=== PATIENT | male | born 1950 | race Caucasian/White ===

== ENCOUNTER → 2018-07-12 11:27 | Outpatient (CLI) | payer OTHER, SELFPAY | PROVIDERS: PCP Internal Medicine; Visit Provider Urology | DX: N40.1 Benign prostatic hyperplasia with lower urinary tract symptoms (principal) | CPT/HCPCS: 36415; 84153 ==

== ENCOUNTER → 2018-08-09 12:08 | Outpatient (CLI) | payer OTHER, SELFPAY | PROVIDERS: Family Provider Orthopaedic Surgery; PCP Internal Medicine | DX: Z23 Encounter for immunization (principal) | CPT/HCPCS: 90471; 90662 ==

== ENCOUNTER 2019-07-29 10:00 | Outpatient (RCR) | payer OTHER, SELFPAY ==
--- NOTE | 2019-05-28 17:35 | PT.OPPOC ---
Current Diagnoses Pain in right knee (05/28/19) Provider Visit Care Team Role Provider Type Edgar Arambula MD Primary Care Provider Physician Specialty: Internal Medicine Address: [address] [place] [address], [id number] Email: Pacheco Montano MD Family Provider Physician Specialty: Orthopedic Surgery Address: [address] [place] [address], [id number] Email: [email or web address] Attending Provider Physician Specialty: Internal Medicine Address: [address] [place] [address], [id number] Email: Plan Of Care PT-OP-T Assessment and Plan Start: 05/28/19 15:59 Freq: Status: Active Protocol: Document 05/28/19 17:31 EA (Rec: 05/28/19 17:33 EA [id number]) Physical Therapy Assessment Rehab Potential Rehabilitation Potential Good Evaluation Complexity Number of Personal Factors/Comorbidities 0 Number of Body Systems Impaired 1-2 Clinical Presentation at Evaluation Stable Impairments Impairments Activity Tolerance Pain ROM Soft Tissue Mobility Strength Goals Four Impairment Impaired hip, knee ankle muscular excursion Snf Goal (LTG) Patient will exhibit functional muscular excursion both hip flexors, hamstrings, calves, ITB to prevent muscular imbalance. LTG Duration 5 wks Three Impairment LEFS score of 55/80 Industrial Workers Goal (LTG) LEFS score of > 65/80 to reach highest functional level LTG Duration 5 wks Two Impairment Impaired distance running Snf Goal (LTG) Patient will run more than 2 miles three time a week with no increase of pain LTG Duration 4 wks One Impairment No HEP in place Industrial Workers Goal (LTG) Patient will exhibit independent HEP LTG Duration 3 wks Assessment Summary Assessment Pleasant 68 y/o M patient with a referring diagnosis of right knee pain. Today patient exhibited of right single leg squat difficulty, left single leg heel raises difficulty with pain. Tests and assessment reveals right knee PF joint dysfunction, left soleus muscular strain. Patient also exhibited tightness to both hip flexors (+ seven test), Hamstrings tightness (90-90 tests), ITB tightness (Linda's test+), and quads tightness. In my opinion , patient is possibly suffering from PF joint dysfunction, calf strain secondary to muscular length imbalances and poor conditioning in regards to high impact activities. Patient would benefit with skilled PT to educate about proper conditioning, strengthen quads, and flexibility. Patient shows good potential for recovery. Physical Therapy Plan Frequency and Duration Frequency of Treatment 2x/Week Duration of Treatment 8 wks Plan of Care Start Date 05/28/19 Plan of Care End Date 07/23/19 Therapeutic Interventions Therapeutic Interventions Home Exercise Program Joint Mobilizations Patient/Caregiver Education Self-Care/Home Management Soft Tissue Mobilization Taping Therapeutic Exercises Modalities Ultrasound Next Visit Focus/Plan Next Note Type Treatment Note Next Visit Plan HEP with images. quads strengthening, LE stretching, soleus stretching. Plan of Care Dates Plan of Care Start Date 05/28/19 Plan of Care End Date 07/23/19 Please Sign and Return: I have reviewed this Plan of Care and certify that the skilled therapy services above are required to meet the patient?s needs. Physician Signature Date Printed Name and Credentials Clinical Instructor Signature Printed Name and Credentials
--- NOTE | 2019-05-28 17:35 | PT.OIE ---
Current Diagnoses Pain in right knee (05/28/19) Provider Visit Care Team Role Provider Type Edgar Arambula MD Primary Care Provider Physician Specialty: Internal Medicine Address: [address] [place] [address], [id number] Email: Pacheco Montano MD Family Provider Physician Specialty: Orthopedic Surgery Address: [address] [place] [address], [phone] Email: [email or web address] MD Attending Provider Physician Specialty: Internal Medicine Address: [address] [place] [address], [phone] Email: Physical Therapy Initial Evaluation PT-OP-A Visit Information Start: 05/28/19 15:59 Freq: Status: Active Protocol: Document 05/28/19 17:35 EA (Rec: 05/29/19 08:12 EA [id number]) Out-Patient Physical Therapy Visit Information Visit Information Visit Type Initial Evaluation Visit Start Time 15:15 Visit Stop Time 16:00 Total Visit Minutes 40 Visit Number 1 Evaluation Information Evaluation Date 05/28/19 Precautions Precautions None identified PT-OP-B Current Condition Start: 05/28/19 15:59 Freq: Status: Active Protocol: Document 05/28/19 17:35 EA (Rec: 05/29/19 08:12 EA [id number]) Current Condition History of Current Condition Onset Date March Current Complaints R knee pain History of Current Condition Pt reports he used to run daily of 6-7 miles with no symptoms noted until last March of 2019. He states right knee cap pain gradually builds up and made his run decreased to < a 2 miles, in addition to right knees issue, his right hamstring and left mid calf tendon also bother him in the past 3 weeks but states much feeling better after using knee support and velcro to left calf. Patient denies any swelling or abnormality and also past injury that could relate to current problem. Pt denies any imaging performed in the past. Prior Treatments and Tests No imaging. No formal treatment. Future Testing and Treatments Planned None identified Treatment Goals Patient/Caregiver Goals 1. Patient would like to know home exercises he can do to prevent recurrence of pain to BLE. 2. He would like to eliminate pain to enable him to run > 2miles on regular basis. Prior Functional Status Baseline Function- ADL's Independent Baseline Function- Mobility Independent Baseline Function- Gait No limitation Baseline Function- Work/School Retired Baseline Function- Recreation/Hobbies Distance running ( > 5 miles / day) and cycling ( > 50miles x 3 /wk) Current Functional Impairments (Reported) Functional Limitations- ADL's Indep with no limitations Functional Limitations- Mobility/Gait Indep with no limitation except with High level running Functional Limitations- Work/School retired Functional Limitations- Recreation/ Unable to get back to > 2 Hobbies miles running daily PT-OP-C Subjective Start: 05/28/19 15:59 Freq: Status: Active Protocol: Document 05/28/19 17:35 EA (Rec: 05/29/19 08:12 EA [id number]) OP-PT Subjective Patient Comments Patient Comments Cycling did not bothered me ; running made me stop to eliminate pain Patient Reported Progress Improving Patient Questionnaires Lower Extremity Functional Scale LEFS Score 55 LEFS Impairment 20 to 39% Impaired (Score 48- 62) PT-OP-E Functional Tests Start: 05/28/19 15:59 Freq: Status: Active Protocol: Document 05/28/19 17:35 EA (Rec: 05/29/19 08:12 EA [id number]) Functional Tests Other 1 Name of Test Bent knee single leg heel raises Score Left 10 reps ; Right unable due to pain PT-OP-G Mobility & Gait Start: 05/28/19 15:59 Freq: Status: Active Protocol: Document 05/28/19 17:35 EA (Rec: 05/29/19 08:12 EA [id number]) OP Gait Assessment Gait Gait Assistance Required: Independent Distance (Feet) 300 Assistive Devices Assistive Device None Comments Gait Comments WFL PT-OP-J Posture/Palpation/Skin Start: 05/28/19 15:59 Freq: Status: Active Protocol: Document 05/28/19 17:35 EA (Rec: 05/29/19 08:12 EA [id number]) Posture Evaluation Comments Posture Comments No functional posture abnormality noted to both kness and ankle Palpation Assessment Location One Palpation Location quads, ITB band, Letf mid calf Palpation Findings Soft Tissue Tightness Tenderness PT-OP-K Range of Motion Start: 05/28/19 15:59 Freq: Status: Active Protocol: Document 05/28/19 17:35 EA (Rec: 05/29/19 08:12 EA [id number]) Hip Goniometric Range of Motion Hip ROM Limitations Hip ROM Limitations Soft Tissue Tightness Comments tight both hip flexors, hamstrings, ITB, quads but WFL joint ROM Ankle and Foot Goniometric Range of Motion Ankle and Foot ROM Limitations ROM Limitations Soft Tissue Tightness Comments Tight both calves but WFL joint ROM PT-OP-L Special Tests Start: 05/28/19 15:59 Freq: Status: Active Protocol: Document 05/28/19 17:35 EA (Rec: 05/29/19 08:12 EA [id number]) Special Tests Knee Special Tests Dustin's Sign Test Results Right positive Foot/Ankle Special Tests Fung Test Results - Other Special Tests Special Tests Soleus overpressure positive PT-OP-M Strength Start: 05/28/19 15:59 Freq: Status: Active Protocol: Document 05/28/19 17:35 EA (Rec: 05/29/19 08:12 EA [id number]) Hip Strength Hip Manual Muscle Testing Right Reason Not Measured WFL Left Reason Not Measured WFL Knee Strength Knee Manual Muscle Testing Right Reason Not Measured WFL Comments < 10 single leg squat with pain and instability to knee cap Left Flexion (S2) 5 Normal Extension (L3) 5 Normal Comments > 10 single leg squat Ankle/Foot Strength Ankle and Foot Manual Muscle Testing Right Reason Not Measured WFL Comments no limitation Left Reason Not Measured WFL Comments < difficult with bent knee heel raises to left PT-OP-Q Treatments Start: 05/28/19 15:59 Freq: Status: Active Protocol: Document 05/28/19 17:35 EA (Rec: 05/29/19 08:12 EA [id number]) Therapeutic Exercises Standing Exercises 3 Standing Exercise Name Heel raises Side bilateral Reps/Minutes x 12 reps 2 Standing Exercise Name Hamstrings, quads, hip flexors , calves, ITB Reps/Minutes x 30SH each Comments HEP 1 Standing Exercise Name Corrected squats Reps/Minutes x 12 reps x 2 Comments HEP Self-Care/Home Management Treatment Education Patient Education Home Exercise Program Joint Protection Pain Management PT-OP-T Assessment and Plan Start: 05/28/19 15:59 Freq: Status: Active Protocol: Document 05/28/19 17:31 EA (Rec: 05/28/19 17:33 EA [id number]) Physical Therapy Assessment Rehab Potential Rehabilitation Potential Good Evaluation Complexity Number of Personal Factors/Comorbidities 0 Number of Body Systems Impaired 1-2 Clinical Presentation at Evaluation Stable Impairments Impairments Activity Tolerance Pain ROM Soft Tissue Mobility Strength Goals Four Impairment Impaired hip, knee ankle muscular excursion Fdc Goal (LTG) Patient will exhibit functional muscular excursion both hip flexors, hamstrings, calves, ITB to prevent muscular imbalance. LTG Duration 5 wks Three Impairment LEFS score of 55/80 Onion [employer] Goal (LTG) LEFS score of > 65/80 to reach highest functional level LTG Duration 5 wks Two Impairment Impaired distance running Onion [employer] Goal (LTG) Patient will run more than 2 miles three time a week with no increase of pain LTG Duration 4 wks One Impairment No HEP in place Onion [employer] Goal (LTG) Patient will exhibit independent HEP LTG Duration 3 wks Assessment Summary Assessment Pleasant 68 y/o M patient with a referring diagnosis of right knee pain. Today patient exhibited of right single leg squat difficulty, left single leg heel raises difficulty with pain. Tests and assessment reveals right knee PF joint dysfunction, left soleus muscular strain. Patient also exhibited tightness to both hip flexors (+ seven test), Hamstrings tightness (90-90 tests), ITB tightness (Linda's test+), and quads tightness. In my opinion , patient is possibly suffering from PF joint dysfunction, calf strain secondary to muscular length imbalances and poor conditioning in regards to high impact activities. Patient would benefit with skilled PT to educate about proper conditioning, strengthen quads, and flexibility. Patient shows good potential for recovery. Physical Therapy Plan Frequency and Duration Frequency of Treatment 2x/Week Duration of Treatment 8 wks Plan of Care Start Date 05/28/19 Plan of Care End Date 07/23/19 Therapeutic Interventions Therapeutic Interventions Home Exercise Program Joint Mobilizations Patient/Caregiver Education Self-Care/Home Management Soft Tissue Mobilization Taping Therapeutic Exercises Modalities Ultrasound Next Visit Focus/Plan Next Note Type Treatment Note Next Visit Plan HEP with images. quads strengthening, LE stretching, soleus stretching.
--- NOTE | 2019-05-30 12:01 | PT.OTN ---
Current Diagnoses Pain in right knee (05/30/19) Physical Therapy Treatment Note PT-OP-A Visit Information Start: 05/28/19 15:59 Freq: Status: Active Protocol: Document 05/30/19 10:33 EA (Rec: 05/30/19 10:38 EA [id number]) Out-Patient Physical Therapy Visit Information Visit Information Visit Type Treatment Note Visit Start Time 09:45 Visit Stop Time 10:30 Total Visit Minutes 40 Visit Number 2 PT-OP-B Current Condition Start: 05/28/19 15:59 Freq: Status: Active Protocol: Document 05/28/19 17:35 EA (Rec: 05/29/19 08:12 EA [id number]) Current Condition History of Current Condition Onset Date March Current Complaints R knee pain History of Current Condition Pt reports he used to run daily of 6-7 miles with no symptoms noted until last March of 2019. He states right knee cap pain gradually builds up and made his run decreased to < a 2 miles, in addition to right knees issue, his right hamstring and left mid calf tendon also bother him in the past 3 weeks but states much feeling better after using knee support and velcro to left calf. Patient denies any swelling or abnormality and also past injury that could relate to current problem. Pt denies any imaging performed in the past. Prior Treatments and Tests No imaging. No formal treatment. Future Testing and Treatments Planned None identified Treatment Goals Patient/Caregiver Goals 1. Patient would like to know home exercises he can do to prevent recurrence of pain to BLE. 2. He would like to eliminate pain to enable him to run > 2miles on regular basis. Prior Functional Status Baseline Function- ADL's Independent Baseline Function- Mobility Independent Baseline Function- Gait No limitation Baseline Function- Work/School Retired Baseline Function- Recreation/Hobbies Distance running ( > 5 miles / day) and cycling ( > 50miles x 3 /wk) Current Functional Impairments (Reported) Functional Limitations- ADL's Indep with no limitations Functional Limitations- Mobility/Gait Indep with no limitation except with High level running Functional Limitations- Work/School retired Functional Limitations- Recreation/ Unable to get back to > 2 Hobbies miles running daily PT-OP-C Subjective Start: 05/28/19 15:59 Freq: Status: Active Protocol: Document 05/30/19 10:33 EA (Rec: 05/30/19 10:38 EA [id number]) OP-PT Subjective Patient Comments Patient Comments No new complaint; difficult to remember some of the HEP; states likes images PT-OP-E Functional Tests Start: 05/28/19 15:59 Freq: Status: Active Protocol: Document 05/28/19 17:35 EA (Rec: 05/29/19 08:12 EA [id number]) Functional Tests Other 1 Name of Test Bent knee single leg heel raises Score Left 10 reps ; Right unable due to pain PT-OP-G Mobility & Gait Start: 05/28/19 15:59 Freq: Status: Active Protocol: Document 05/28/19 17:35 EA (Rec: 05/29/19 08:12 EA [id number]) OP Gait Assessment Gait Gait Assistance Required: Independent Distance (Feet) 300 Assistive Devices Assistive Device None Comments Gait Comments WFL PT-OP-J Posture/Palpation/Skin Start: 05/28/19 15:59 Freq: Status: Active Protocol: Document 05/28/19 17:35 EA (Rec: 05/29/19 08:12 EA [id number]) Posture Evaluation Comments Posture Comments No functional posture abnormality noted to both kness and ankle Palpation Assessment Location One Palpation Location quads, ITB band, Letf mid calf Palpation Findings Soft Tissue Tightness Tenderness PT-OP-K Range of Motion Start: 05/28/19 15:59 Freq: Status: Active Protocol: Document 05/28/19 17:35 EA (Rec: 05/29/19 08:12 EA [id number]) Hip Goniometric Range of Motion Hip ROM Limitations Hip ROM Limitations Soft Tissue Tightness Comments tight both hip flexors, hamstrings, ITB, quads but WFL joint ROM Ankle and Foot Goniometric Range of Motion Ankle and Foot ROM Limitations ROM Limitations Soft Tissue Tightness Comments Tight both calves but WFL joint ROM PT-OP-L Special Tests Start: 05/28/19 15:59 Freq: Status: Active Protocol: Document 05/28/19 17:35 EA (Rec: 05/29/19 08:12 EA [id number]) Special Tests Knee Special Tests Dustin's Sign Test Results Right positive Foot/Ankle Special Tests Fung Test Results - Other Special Tests Special Tests Soleus overpressure positive PT-OP-M Strength Start: 05/28/19 15:59 Freq: Status: Active Protocol: Document 05/28/19 17:35 EA (Rec: 05/29/19 08:12 EA [id number]) Hip Strength Hip Manual Muscle Testing Right Reason Not Measured WFL Left Reason Not Measured WFL Knee Strength Knee Manual Muscle Testing Right Reason Not Measured WFL Comments < 10 single leg squat with pain and instability to knee cap Left Flexion (S2) 5 Normal Extension (L3) 5 Normal Comments > 10 single leg squat Ankle/Foot Strength Ankle and Foot Manual Muscle Testing Right Reason Not Measured WFL Comments no limitation Left Reason Not Measured WFL Comments < difficult with bent knee heel raises to left PT-OP-Q Treatments Start: 05/28/19 15:59 Freq: Status: Active Protocol: Document 05/30/19 10:33 EA (Rec: 05/30/19 10:38 EA [id number]) Cardio Equipment Treadmill Duration (Minutes) 7 Speed 3 Incline 5 Other pain icreased at left calf with speed > 4 Gym Equipment Shuttle Recovery Unilateral Squats Details 75# Shuttle Recovery Platform Stable Reps/Time x 15 reps x 2 Bilateral Squats Details 125lbs Shuttle Recovery Platform Stable Reps/Time x 15 reps x 2 Therapeutic Exercises Standing Exercises 5 Standing Exercise Name Half kneeling psoas and TFL stretch. 4 Standing Exercise Name Steady lunges Reps/Minutes x 8 reps each sides 3 Standing Exercise Name Heel raises Side bilateral Reps/Minutes x 12 reps 2 Standing Exercise Name Hamstrings, quads, hip flexors , calves, ITB Reps/Minutes x 30SH each Comments HEP 1 Standing Exercise Name Corrected squats Equipment Used 10# Reps/Minutes x 12 reps x 2 Comments HEP PT-OP-T Assessment and Plan Start: 05/28/19 15:59 Freq: Status: Active Protocol: Document 05/30/19 10:33 EA (Rec: 05/30/19 10:38 EA [id number]) Physical Therapy Assessment Assessment Summary Assessment Tolerated treatment well. Physical Therapy Plan Next Visit Focus/Plan Next Visit Plan Review HEP and cont. leg strengthening and flexibility.
--- NOTE | 2019-06-04 15:14 | PT.OTN ---
Current Diagnoses Pain in right knee (06/04/19) Physical Therapy Treatment Note PT-OP-A Visit Information Start: 05/28/19 15:59 Freq: Status: Active Protocol: Document 06/04/19 14:30 DCW (Rec: 06/04/19 15:14 DCW [id number]) Out-Patient Physical Therapy Visit Information Visit Information Visit Type Treatment Note Visit Start Time 14:30 Visit Stop Time 15:15 Total Visit Minutes 45 Visit Number 3 Evaluation Information Evaluation Date 05/28/19 PT-OP-B Current Condition Start: 05/28/19 15:59 Freq: Status: Active Protocol: Document 05/28/19 17:35 EA (Rec: 05/29/19 08:12 EA [id number]) Current Condition History of Current Condition Onset Date March Current Complaints R knee pain History of Current Condition Pt reports he used to run daily of 6-7 miles with no symptoms noted until last March of 2019. He states right knee cap pain gradually builds up and made his run decreased to < a 2 miles, in addition to right knees issue, his right hamstring and left mid calf tendon also bother him in the past 3 weeks but states much feeling better after using knee support and velcro to left calf. Patient denies any swelling or abnormality and also past injury that could relate to current problem. Pt denies any imaging performed in the past. Prior Treatments and Tests No imaging. No formal treatment. Future Testing and Treatments Planned None identified Treatment Goals Patient/Caregiver Goals 1. Patient would like to know home exercises he can do to prevent recurrence of pain to BLE. 2. He would like to eliminate pain to enable him to run > 2miles on regular basis. Prior Functional Status Baseline Function- ADL's Independent Baseline Function- Mobility Independent Baseline Function- Gait No limitation Baseline Function- Work/School Retired Baseline Function- Recreation/Hobbies Distance running ( > 5 miles / day) and cycling ( > 50miles x 3 /wk) Current Functional Impairments (Reported) Functional Limitations- ADL's Indep with no limitations Functional Limitations- Mobility/Gait Indep with no limitation except with High level running Functional Limitations- Work/School retired Functional Limitations- Recreation/ Unable to get back to > 2 Hobbies miles running daily PT-OP-C Subjective Start: 05/28/19 15:59 Freq: Status: Active Protocol: Document 06/04/19 14:30 DCW (Rec: 06/04/19 15:14 DCW [id number]) OP-PT Subjective Patient Comments Patient Comments Did a 1 mile light jog yesterday, states his knee held up well, but he can still tell his calf isn't quite right. PT-OP-E Functional Tests Start: 05/28/19 15:59 Freq: Status: Active Protocol: Document 05/28/19 17:35 EA (Rec: 05/29/19 08:12 EA [id number]) Functional Tests Other 1 Name of Test Bent knee single leg heel raises Score Left 10 reps ; Right unable due to pain PT-OP-G Mobility & Gait Start: 05/28/19 15:59 Freq: Status: Active Protocol: Document 05/28/19 17:35 EA (Rec: 05/29/19 08:12 EA [id number]) OP Gait Assessment Gait Gait Assistance Required: Independent Distance (Feet) 300 Assistive Devices Assistive Device None Comments Gait Comments WFL PT-OP-J Posture/Palpation/Skin Start: 05/28/19 15:59 Freq: Status: Active Protocol: Document 05/28/19 17:35 EA (Rec: 05/29/19 08:12 EA [id number]) Posture Evaluation Comments Posture Comments No functional posture abnormality noted to both kness and ankle Palpation Assessment Location One Palpation Location quads, ITB band, Letf mid calf Palpation Findings Soft Tissue Tightness Tenderness PT-OP-K Range of Motion Start: 05/28/19 15:59 Freq: Status: Active Protocol: Document 05/28/19 17:35 EA (Rec: 05/29/19 08:12 EA [id number]) Hip Goniometric Range of Motion Hip ROM Limitations Hip ROM Limitations Soft Tissue Tightness Comments tight both hip flexors, hamstrings, ITB, quads but WFL joint ROM Ankle and Foot Goniometric Range of Motion Ankle and Foot ROM Limitations ROM Limitations Soft Tissue Tightness Comments Tight both calves but WFL joint ROM PT-OP-L Special Tests Start: 05/28/19 15:59 Freq: Status: Active Protocol: Document 05/28/19 17:35 EA (Rec: 05/29/19 08:12 EA [id number]) Special Tests Knee Special Tests Dustin's Sign Test Results Right positive Foot/Ankle Special Tests Fung Test Results - Other Special Tests Special Tests Soleus overpressure positive PT-OP-M Strength Start: 05/28/19 15:59 Freq: Status: Active Protocol: Document 05/28/19 17:35 EA (Rec: 05/29/19 08:12 EA [id number]) Hip Strength Hip Manual Muscle Testing Right Reason Not Measured WFL Left Reason Not Measured WFL Knee Strength Knee Manual Muscle Testing Right Reason Not Measured WFL Comments < 10 single leg squat with pain and instability to knee cap Left Flexion (S2) 5 Normal Extension (L3) 5 Normal Comments > 10 single leg squat Ankle/Foot Strength Ankle and Foot Manual Muscle Testing Right Reason Not Measured WFL Comments no limitation Left Reason Not Measured WFL Comments < difficult with bent knee heel raises to left PT-OP-Q Treatments Start: 05/28/19 15:59 Freq: Status: Active Protocol: Document 06/04/19 14:30 DCW (Rec: 06/04/19 15:14 DCW [id number]) Cardio Equipment Treadmill Duration (Minutes) 7 Speed 3 Incline 5 Gym Equipment Shuttle Recovery Unilateral Squats Details 75# Shuttle Recovery Platform Stable Reps/Time x 15 reps x 2 Bilateral Squats Details 125lbs Shuttle Recovery Platform Stable Reps/Time x 15 reps x 2 Therapeutic Exercises Supine Exercises 1 Supine Exercise Name Hamstring stretch Side bilateral Comments manual Sidelying Exercises 1 Sidelying Exercise Name Psoas stretch Side bilateral Comments manual Standing Exercises 6 Standing Exercise Name Resisted Amb Resistance Green Equipment Used T-band Comments Fwd/Bkwd 4 Standing Exercise Name Lunges ontp BOSU Reps/Minutes x 8 reps each sides Manual Therapy Treatment Joint Mobilizations Patellofemoral Joint Patellofemoral Direction lateral, superior-inferior Grade III Body Position Supine PT-OP-T Assessment and Plan Start: 05/28/19 15:59 Freq: Status: Active Protocol: Document 06/04/19 14:30 DCW (Rec: 06/04/19 15:14 DCW [id number]) Physical Therapy Assessment Rehab Potential Rehabilitation Potential Good Evaluation Complexity Number of Personal Factors/Comorbidities 0 Number of Body Systems Impaired 1-2 Clinical Presentation at Evaluation Stable Impairments Impairments Activity Tolerance Pain ROM Soft Tissue Mobility Strength Goals Four Impairment Impaired hip, knee ankle muscular excursion Half-Way Goal (LTG) Patient will exhibit functional muscular excursion both hip flexors, hamstrings, calves, ITB to prevent muscular imbalance. LTG Duration 5 wks Three Impairment LEFS score of 55/80 Pediatric Hospitalist Goal (LTG) LEFS score of > 65/80 to reach highest functional level LTG Duration 5 wks Two Impairment Impaired distance running Pediatric Hospitalist Goal (LTG) Patient will run more than 2 miles three time a week with no increase of pain LTG Duration 4 wks One Impairment No HEP in place Pediatric Hospitalist Goal (LTG) Patient will exhibit independent HEP LTG Duration 3 wks Assessment Summary Assessment Pt had no complaints of increased pain with treatment today, tolerated increased difficulty of lunges onto BOSU . Physical Therapy Plan Frequency and Duration Frequency of Treatment 2x/Week Duration of Treatment 8 wks Plan of Care Start Date 05/28/19 Plan of Care End Date 07/23/19 Therapeutic Interventions Therapeutic Interventions Home Exercise Program Joint Mobilizations Patient/Caregiver Education Self-Care/Home Management Soft Tissue Mobilization Taping Therapeutic Exercises Modalities Ultrasound Next Visit Focus/Plan Next Note Type Treatment Note Next Visit Plan Review HEP and cont. leg strengthening and flexibility.
--- NOTE | 2019-06-25 12:11 | PT.OTN ---
Current Diagnoses Pain in right knee (06/25/19) Physical Therapy Treatment Note PT-OP-A Visit Information Start: 05/28/19 15:59 Freq: Status: Active Protocol: Document 06/25/19 08:21 EA (Rec: 06/25/19 08:30 EA [id number]) Out-Patient Physical Therapy Visit Information Visit Information Visit Type Treatment Note Visit Start Time 07:30 Visit Stop Time 08:18 Visit Number 4 PT-OP-B Current Condition Start: 05/28/19 15:59 Freq: Status: Active Protocol: Document 05/28/19 17:35 EA (Rec: 05/29/19 08:12 EA [id number]) Current Condition History of Current Condition Onset Date March Current Complaints R knee pain History of Current Condition Pt reports he used to run daily of 6-7 miles with no symptoms noted until last March of 2019. He states right knee cap pain gradually builds up and made his run decreased to < a 2 miles, in addition to right knees issue, his right hamstring and left mid calf tendon also bother him in the past 3 weeks but states much feeling better after using knee support and velcro to left calf. Patient denies any swelling or abnormality and also past injury that could relate to current problem. Pt denies any imaging performed in the past. Prior Treatments and Tests No imaging. No formal treatment. Future Testing and Treatments Planned None identified Treatment Goals Patient/Caregiver Goals 1. Patient would like to know home exercises he can do to prevent recurrence of pain to BLE. 2. He would like to eliminate pain to enable him to run > 2miles on regular basis. Prior Functional Status Baseline Function- ADL's Independent Baseline Function- Mobility Independent Baseline Function- Gait No limitation Baseline Function- Work/School Retired Baseline Function- Recreation/Hobbies Distance running ( > 5 miles / day) and cycling ( > 50miles x 3 /wk) Current Functional Impairments (Reported) Functional Limitations- ADL's Indep with no limitations Functional Limitations- Mobility/Gait Indep with no limitation except with High level running Functional Limitations- Work/School retired Functional Limitations- Recreation/ Unable to get back to > 2 Hobbies miles running daily PT-OP-C Subjective Start: 05/28/19 15:59 Freq: Status: Active Protocol: Document 06/25/19 08:21 EA (Rec: 06/25/19 08:30 EA [id number]) OP-PT Subjective Patient Comments Patient Comments Pt reports he has been active in the past 3 wks and min tightness to left calf and mild knee discomfort; states it is improving very well. He also mentioned that left calf referral from his doctor has been made. PT-OP-E Functional Tests Start: 05/28/19 15:59 Freq: Status: Active Protocol: Document 05/28/19 17:35 EA (Rec: 05/29/19 08:12 EA [id number]) Functional Tests Other 1 Name of Test Bent knee single leg heel raises Score Left 10 reps ; Right unable due to pain PT-OP-G Mobility & Gait Start: 05/28/19 15:59 Freq: Status: Active Protocol: Document 05/28/19 17:35 EA (Rec: 05/29/19 08:12 EA [id number]) OP Gait Assessment Gait Gait Assistance Required: Independent Distance (Feet) 300 Assistive Devices Assistive Device None Comments Gait Comments WFL PT-OP-J Posture/Palpation/Skin Start: 05/28/19 15:59 Freq: Status: Active Protocol: Document 05/28/19 17:35 EA (Rec: 05/29/19 08:12 EA [id number]) Posture Evaluation Comments Posture Comments No functional posture abnormality noted to both kness and ankle Palpation Assessment Location One Palpation Location quads, ITB band, Letf mid calf Palpation Findings Soft Tissue Tightness Tenderness PT-OP-K Range of Motion Start: 05/28/19 15:59 Freq: Status: Active Protocol: Document 05/28/19 17:35 EA (Rec: 05/29/19 08:12 EA [id number]) Hip Goniometric Range of Motion Hip ROM Limitations Hip ROM Limitations Soft Tissue Tightness Comments tight both hip flexors, hamstrings, ITB, quads but WFL joint ROM Ankle and Foot Goniometric Range of Motion Ankle and Foot ROM Limitations ROM Limitations Soft Tissue Tightness Comments Tight both calves but WFL joint ROM PT-OP-L Special Tests Start: 05/28/19 15:59 Freq: Status: Active Protocol: Document 05/28/19 17:35 EA (Rec: 05/29/19 08:12 EA [id number]) Special Tests Knee Special Tests Dustin's Sign Test Results Right positive Foot/Ankle Special Tests Fung Test Results - Other Special Tests Special Tests Soleus overpressure positive PT-OP-M Strength Start: 05/28/19 15:59 Freq: Status: Active Protocol: Document 05/28/19 17:35 EA (Rec: 05/29/19 08:12 EA [id number]) Hip Strength Hip Manual Muscle Testing Right Reason Not Measured WFL Left Reason Not Measured WFL Knee Strength Knee Manual Muscle Testing Right Reason Not Measured WFL Comments < 10 single leg squat with pain and instability to knee cap Left Flexion (S2) 5 Normal Extension (L3) 5 Normal Comments > 10 single leg squat Ankle/Foot Strength Ankle and Foot Manual Muscle Testing Right Reason Not Measured WFL Comments no limitation Left Reason Not Measured WFL Comments < difficult with bent knee heel raises to left PT-OP-Q Treatments Start: 05/28/19 15:59 Freq: Status: Active Protocol: Document 06/25/19 08:21 EA (Rec: 06/25/19 08:30 EA [id number]) Cardio Equipment Bicycle (Upright) Duration (Minutes) 5 Resistance 3 Seat Position 4 Gym Equipment Shuttle Recovery Unilateral Squats Details 75# Shuttle Recovery Platform Stable Reps/Time x 15 reps x 2 Bilateral Squats Details 125lbs Shuttle Recovery Platform Stable Reps/Time x 15 reps x 2 Therapeutic Exercises Standing Exercises 7 Standing Exercise Name steady and fwd lunges Reps/Minutes x 12 steps x 2 sets 3 Standing Exercise Name Heel raises Side bilateral Reps/Minutes x 12 reps 2 Standing Exercise Name Hamstrings, quads, hip flexors , calves, ITB Reps/Minutes x 30SH each Comments HEP 1 Standing Exercise Name steady and dynamic squats Reps/Minutes x 12 reps x 2 sets Manual Therapy Treatment Soft Tissue Mobilization 1 Body Location left calf and right hamstring Mobilization Type Myofascial Release Rolling Sustained Pressure Intensity/Depth Moderate Body Position Prone Comments start and end with effluerage Joint Mobilizations Patellofemoral Joint Patellofemoral Direction lateral, superior-inferior Grade III Body Position Supine PT-OP-R Modalities Start: 05/28/19 15:59 Freq: Status: Active Protocol: Document 06/25/19 08:30 EA (Rec: 06/25/19 08:31 EA [id number]) Hot Pack/Cold Pack Treatment Hot Pack Location left calf and right hamstring Patient Position Prone Treatment Duration (minutes) 10 PT-OP-T Assessment and Plan Start: 05/28/19 15:59 Freq: Status: Active Protocol: Document 06/25/19 08:21 EA (Rec: 06/25/19 08:30 EA [id number]) Physical Therapy Assessment Assessment Summary Assessment Tolerated treatment well with no signs of discomfort. Left calves noted uneven surface at the insertion of soleus muscle; no tenderness and swelling noted; requires further assessment to rule out old muscular tear. Physical Therapy Plan Next Visit Focus/Plan Next Note Type Treatment Note Next Visit Plan Re-assess left soleus , perform side step squat with band to ankle, lunges with DB front raises, cable squat-row at 30# as tolerated provide HEP images.
--- NOTE | 2019-06-27 10:31 | PT.OTN ---
Current Diagnoses Pain in right knee (06/27/19) Physical Therapy Treatment Note PT-OP-A Visit Information Start: 05/28/19 15:59 Freq: Status: Active Protocol: Document 06/27/19 09:45 DCW (Rec: 06/27/19 10:31 DCW [id number]) Out-Patient Physical Therapy Visit Information Visit Information Visit Type Treatment Note Visit Start Time 09:45 Visit Stop Time 10:30 Total Visit Minutes 45 Visit Number 5 Evaluation Information Evaluation Date 05/28/19 PT-OP-B Current Condition Start: 05/28/19 15:59 Freq: Status: Active Protocol: Document 05/28/19 17:35 EA (Rec: 05/29/19 08:12 EA [id number]) Current Condition History of Current Condition Onset Date March Current Complaints R knee pain History of Current Condition Pt reports he used to run daily of 6-7 miles with no symptoms noted until last March of 2019. He states right knee cap pain gradually builds up and made his run decreased to < a 2 miles, in addition to right knees issue, his right hamstring and left mid calf tendon also bother him in the past 3 weeks but states much feeling better after using knee support and velcro to left calf. Patient denies any swelling or abnormality and also past injury that could relate to current problem. Pt denies any imaging performed in the past. Prior Treatments and Tests No imaging. No formal treatment. Future Testing and Treatments Planned None identified Treatment Goals Patient/Caregiver Goals 1. Patient would like to know home exercises he can do to prevent recurrence of pain to BLE. 2. He would like to eliminate pain to enable him to run > 2miles on regular basis. Prior Functional Status Baseline Function- ADL's Independent Baseline Function- Mobility Independent Baseline Function- Gait No limitation Baseline Function- Work/School Retired Baseline Function- Recreation/Hobbies Distance running ( > 5 miles / day) and cycling ( > 50miles x 3 /wk) Current Functional Impairments (Reported) Functional Limitations- ADL's Indep with no limitations Functional Limitations- Mobility/Gait Indep with no limitation except with High level running Functional Limitations- Work/School retired Functional Limitations- Recreation/ Unable to get back to > 2 Hobbies miles running daily PT-OP-C Subjective Start: 05/28/19 15:59 Freq: Status: Active Protocol: Document 06/27/19 09:45 DCW (Rec: 06/27/19 10:31 DCW [id number]) OP-PT Subjective Patient Comments Patient Comments Pt reports feeling significantly better. When running, he has been getting some mild discomfort at his patella, and some slight tightness in his calf. Notes no residual pain or discomfort after finishing his run. Pt reports he is currently running 3 miles at a 10.5' pace, wheras his normal is 6- 10 miles at a 9' pace PT-OP-E Functional Tests Start: 05/28/19 15:59 Freq: Status: Active Protocol: Document 05/28/19 17:35 EA (Rec: 05/29/19 08:12 EA [id number]) Functional Tests Other 1 Name of Test Bent knee single leg heel raises Score Left 10 reps ; Right unable due to pain PT-OP-G Mobility & Gait Start: 05/28/19 15:59 Freq: Status: Active Protocol: Document 05/28/19 17:35 EA (Rec: 05/29/19 08:12 EA [id number]) OP Gait Assessment Gait Gait Assistance Required: Independent Distance (Feet) 300 Assistive Devices Assistive Device None Comments Gait Comments WFL PT-OP-J Posture/Palpation/Skin Start: 05/28/19 15:59 Freq: Status: Active Protocol: Document 05/28/19 17:35 EA (Rec: 05/29/19 08:12 EA [id number]) Posture Evaluation Comments Posture Comments No functional posture abnormality noted to both kness and ankle Palpation Assessment Location One Palpation Location quads, ITB band, Letf mid calf Palpation Findings Soft Tissue Tightness Tenderness PT-OP-K Range of Motion Start: 05/28/19 15:59 Freq: Status: Active Protocol: Document 05/28/19 17:35 EA (Rec: 05/29/19 08:12 EA [id number]) Hip Goniometric Range of Motion Hip ROM Limitations Hip ROM Limitations Soft Tissue Tightness Comments tight both hip flexors, hamstrings, ITB, quads but WFL joint ROM Ankle and Foot Goniometric Range of Motion Ankle and Foot ROM Limitations ROM Limitations Soft Tissue Tightness Comments Tight both calves but WFL joint ROM PT-OP-L Special Tests Start: 05/28/19 15:59 Freq: Status: Active Protocol: Document 05/28/19 17:35 EA (Rec: 05/29/19 08:12 EA [id number]) Special Tests Knee Special Tests Dustin's Sign Test Results Right positive Foot/Ankle Special Tests Fung Test Results - Other Special Tests Special Tests Soleus overpressure positive PT-OP-M Strength Start: 05/28/19 15:59 Freq: Status: Active Protocol: Document 05/28/19 17:35 EA (Rec: 05/29/19 08:12 EA [id number]) Hip Strength Hip Manual Muscle Testing Right Reason Not Measured WFL Left Reason Not Measured WFL Knee Strength Knee Manual Muscle Testing Right Reason Not Measured WFL Comments < 10 single leg squat with pain and instability to knee cap Left Flexion (S2) 5 Normal Extension (L3) 5 Normal Comments > 10 single leg squat Ankle/Foot Strength Ankle and Foot Manual Muscle Testing Right Reason Not Measured WFL Comments no limitation Left Reason Not Measured WFL Comments < difficult with bent knee heel raises to left PT-OP-Q Treatments Start: 05/28/19 15:59 Freq: Status: Active Protocol: Document 06/27/19 09:45 DCW (Rec: 06/27/19 10:31 DCW [id number]) Cardio Equipment Treadmill Duration (Minutes) 4 Speed 5 Incline 0 Gym Equipment Shuttle Recovery Unilateral Squats Details 75# Shuttle Recovery Platform Stable Reps/Time x 15 reps x 2 Bilateral Squats Details 125lbs Shuttle Recovery Platform Stable Reps/Time x 15 reps x 2 Therapeutic Exercises Standing Exercises 4 Standing Exercise Name Lunges ontp BOSU Reps/Minutes x 8 reps each sides Comments Fwd and Lateral Lunges 3 Standing Exercise Name Heel raises Side bilateral Reps/Minutes x 12 reps Comments Single Leg 2 Standing Exercise Name Hamstrings, quads, hip flexors , calves, ITB Reps/Minutes x 30SH each Manual Therapy Treatment Soft Tissue Mobilization 1 Body Location left calf and right hamstring Mobilization Type Myofascial Release Rolling Sustained Pressure Intensity/Depth Moderate Body Position Prone Joint Mobilizations Patellofemoral Joint Patellofemoral Direction lateral, superior-inferior Grade III Body Position Supine PT-OP-R Modalities Start: 05/28/19 15:59 Freq: Status: Active Protocol: Document 06/25/19 08:30 EA (Rec: 06/25/19 08:31 EA [id number]) Hot Pack/Cold Pack Treatment Hot Pack Location left calf and right hamstring Patient Position Prone Treatment Duration (minutes) 10 PT-OP-T Assessment and Plan Start: 05/28/19 15:59 Freq: Status: Active Protocol: Document 06/27/19 09:45 DCW (Rec: 06/27/19 10:31 DCW [id number]) Physical Therapy Assessment Impairments Impairments Activity Tolerance Pain ROM Soft Tissue Mobility Strength Goals Four Impairment Impaired hip, knee ankle muscular excursion Usp Goal (LTG) Patient will exhibit functional muscular excursion both hip flexors, hamstrings, calves, ITB to prevent muscular imbalance. LTG Duration 5 wks Three Impairment LEFS score of 55/80 Usp Goal (LTG) LEFS score of > 65/80 to reach highest functional level LTG Duration 5 wks Two Impairment Impaired distance running Usp Goal (LTG) Patient will run more than 2 miles three time a week with no increase of pain LTG Duration 4 wks One Impairment No HEP in place Throat Cutter Goal (LTG) Patient will exhibit independent HEP LTG Duration 3 wks Assessment Summary Assessment Pt continues to tolerate treatment well, appears to be making great progress with his running ability, slowly returning to prior distances. Physical Therapy Plan Frequency and Duration Frequency of Treatment 2x/Week Duration of Treatment 8 wks Plan of Care Start Date 05/28/19 Plan of Care End Date 07/23/19 Therapeutic Interventions Therapeutic Interventions Home Exercise Program Joint Mobilizations Patient/Caregiver Education Self-Care/Home Management Soft Tissue Mobilization Taping Therapeutic Exercises Modalities Ultrasound Next Visit Focus/Plan Next Note Type Treatment Note Next Visit Plan Re-assess left soleus , perform side step squat with band to ankle, lunges with DB front raises, cable squat-row at 30# as tolerated provide HEP images.
--- NOTE | 2019-07-01 18:40 | PT.OTN ---
Current Diagnoses Pain in right knee (07/01/19) Physical Therapy Treatment Note PT-OP-A Visit Information Start: 05/28/19 15:59 Freq: Status: Active Protocol: Document 07/01/19 17:35 [facility] (Rec: 07/01/19 18:39 [facility] [id number]) Out-Patient Physical Therapy Visit Information Visit Information Visit Type Treatment Note Visit Start Time 17:34 Visit Stop Time 18:19 Total Visit Minutes 45 Visit Number 6 PT-OP-B Current Condition Start: 05/28/19 15:59 Freq: Status: Active Protocol: Document 05/28/19 17:35 EA (Rec: 05/29/19 08:12 EA [id number]) Current Condition History of Current Condition Onset Date March Current Complaints R knee pain History of Current Condition Pt reports he used to run daily of 6-7 miles with no symptoms noted until last March of 2019. He states right knee cap pain gradually builds up and made his run decreased to < a 2 miles, in addition to right knees issue, his right hamstring and left mid calf tendon also bother him in the past 3 weeks but states much feeling better after using knee support and velcro to left calf. Patient denies any swelling or abnormality and also past injury that could relate to current problem. Pt denies any imaging performed in the past. Prior Treatments and Tests No imaging. No formal treatment. Future Testing and Treatments Planned None identified Treatment Goals Patient/Caregiver Goals 1. Patient would like to know home exercises he can do to prevent recurrence of pain to BLE. 2. He would like to eliminate pain to enable him to run > 2miles on regular basis. Prior Functional Status Baseline Function- ADL's Independent Baseline Function- Mobility Independent Baseline Function- Gait No limitation Baseline Function- Work/School Retired Baseline Function- Recreation/Hobbies Distance running ( > 5 miles / day) and cycling ( > 50miles x 3 /wk) Current Functional Impairments (Reported) Functional Limitations- ADL's Indep with no limitations Functional Limitations- Mobility/Gait Indep with no limitation except with High level running Functional Limitations- Work/School retired Functional Limitations- Recreation/ Unable to get back to > 2 Hobbies miles running daily PT-OP-C Subjective Start: 05/28/19 15:59 Freq: Status: Active Protocol: Document 07/01/19 17:35 [facility] (Rec: 07/01/19 18:39 [facility] [id number]) OP-PT Subjective Patient Comments Patient Comments Pt reports his calf has not been bothering him for the past 10 days or so. Notes knee still has some discomfort when starting running but it typically either stays at a low level of discomfort or decreases with inc time running. Notes he has been runnign at a slower pace. Reports sometimes gets twinges when descending stairs. Patient Reported Progress Improving PT-OP-E Functional Tests Start: 05/28/19 15:59 Freq: Status: Active Protocol: Document 05/28/19 17:35 EA (Rec: 05/29/19 08:12 EA [id number]) Functional Tests Other 1 Name of Test Bent knee single leg heel raises Score Left 10 reps ; Right unable due to pain PT-OP-G Mobility & Gait Start: 05/28/19 15:59 Freq: Status: Active Protocol: Document 05/28/19 17:35 EA (Rec: 05/29/19 08:12 EA [id number]) OP Gait Assessment Gait Gait Assistance Required: Independent Distance (Feet) 300 Assistive Devices Assistive Device None Comments Gait Comments WFL PT-OP-J Posture/Palpation/Skin Start: 05/28/19 15:59 Freq: Status: Active Protocol: Document 05/28/19 17:35 EA (Rec: 05/29/19 08:12 EA [id number]) Posture Evaluation Comments Posture Comments No functional posture abnormality noted to both kness and ankle Palpation Assessment Location One Palpation Location quads, ITB band, Letf mid calf Palpation Findings Soft Tissue Tightness Tenderness PT-OP-K Range of Motion Start: 05/28/19 15:59 Freq: Status: Active Protocol: Document 05/28/19 17:35 EA (Rec: 05/29/19 08:12 EA [id number]) Hip Goniometric Range of Motion Hip ROM Limitations Hip ROM Limitations Soft Tissue Tightness Comments tight both hip flexors, hamstrings, ITB, quads but WFL joint ROM Ankle and Foot Goniometric Range of Motion Ankle and Foot ROM Limitations ROM Limitations Soft Tissue Tightness Comments Tight both calves but WFL joint ROM PT-OP-L Special Tests Start: 05/28/19 15:59 Freq: Status: Active Protocol: Document 05/28/19 17:35 EA (Rec: 05/29/19 08:12 EA [id number]) Special Tests Knee Special Tests Dustin's Sign Test Results Right positive Foot/Ankle Special Tests Fung Test Results - Other Special Tests Special Tests Soleus overpressure positive PT-OP-M Strength Start: 05/28/19 15:59 Freq: Status: Active Protocol: Document 05/28/19 17:35 EA (Rec: 05/29/19 08:12 EA [id number]) Hip Strength Hip Manual Muscle Testing Right Reason Not Measured WFL Left Reason Not Measured WFL Knee Strength Knee Manual Muscle Testing Right Reason Not Measured WFL Comments < 10 single leg squat with pain and instability to knee cap Left Flexion (S2) 5 Normal Extension (L3) 5 Normal Comments > 10 single leg squat Ankle/Foot Strength Ankle and Foot Manual Muscle Testing Right Reason Not Measured WFL Comments no limitation Left Reason Not Measured WFL Comments < difficult with bent knee heel raises to left PT-OP-Q Treatments Start: 05/28/19 15:59 Freq: Status: Active Protocol: Document 07/01/19 17:35 [facility] (Rec: 07/01/19 18:39 [facility] [id number]) Cardio Equipment Treadmill Duration (Minutes) 4 Speed 5 Incline 0 Gym Equipment Cable Column (Body Solid) squat Details squat row Resistance 30# Reps/Time 15 Sport Cord blue Comments fwd walking with focus on push off x8; step ups onto 8 in step x8 B Therapeutic Exercises Standing Exercises 7 Standing Exercise Name fwd walking lunge with marching Reps/Minutes 50ft 6 Standing Exercise Name SLS progressed to single leg squat in mirror Side bilateral Reps/Minutes 8 ea 5 Standing Exercise Name side step squat Side bilateral Equipment Used teal tband Reps/Minutes 20ft ea Comments side step then squat then sidestepping in squatted position 2 Standing Exercise Name quad stretch Reps/Minutes 45 sec B Gait Training Gait Activity wt shift Description in mirror for wt acceptance with appropriate push off Manual Therapy Treatment Soft Tissue Mobilization 1 Body Location R ITB Mobilization Type Myofascial Release Rolling Sustained Pressure Intensity/Depth Moderate Body Position Supine Joint Mobilizations Patellofemoral Joint Patellofemoral Direction medial, superior-inferior Grade III Body Position Supine PT-OP-R Modalities Start: 05/28/19 15:59 Freq: Status: Active Protocol: Document 06/25/19 08:30 EA (Rec: 06/25/19 08:31 EA [id number]) Hot Pack/Cold Pack Treatment Hot Pack Location left calf and right hamstring Patient Position Prone Treatment Duration (minutes) 10 PT-OP-T Assessment and Plan Start: 05/28/19 15:59 Freq: Status: Active Protocol: Document 07/01/19 17:35 [facility] (Rec: 07/01/19 18:39 [facility] [id number]) Physical Therapy Assessment Goals Four Impairment Impaired hip, knee ankle muscular excursion [employer] Goal (LTG) Patient will exhibit functional muscular excursion both hip flexors, hamstrings, calves, ITB to prevent muscular imbalance. LTG Duration 5 wks Three Impairment LEFS score of 55/80 Alf Goal (LTG) LEFS score of > 65/80 to reach highest functional level LTG Duration 5 wks Two Impairment Impaired distance running Alf Goal (LTG) Patient will run more than 2 miles three time a week with no increase of pain LTG Duration 4 wks One Impairment No HEP in place Alf Goal (LTG) Patient will exhibit independent HEP LTG Duration 3 wks Assessment Summary Assessment Pt has some lat tracking of R patella, which improved with soft tissue mobility to ITB and PF mobs. He ER RLE when descending stairs which likely contributes to his pain as when he was instructed to keep it straight, he had no pain. He was able to complete all exercsies without inc pain. Pt had slight dec hip ext with push off on RLE during running . Discussed this with pt and educated him on importance of glute strength & push off. Pt able to improve with cuieng. Physical Therapy Plan Frequency and Duration Frequency of Treatment 2x/Week Duration of Treatment 8 wks Plan of Care Start Date 05/28/19 Plan of Care End Date 07/23/19 Next Visit Focus/Plan Next Note Type Treatment Note Next Visit Plan Discuss with pt which exercises to cont at home; cont to work on neutral LE positioning
--- NOTE | 2019-07-03 10:36 | PT.OTN ---
Current Diagnoses Pain in right knee (07/03/19) Physical Therapy Treatment Note PT-OP-A Visit Information Start: 05/28/19 15:59 Freq: Status: Active Protocol: Document 07/03/19 10:28 EA (Rec: 07/03/19 10:36 EA [id number]) Out-Patient Physical Therapy Visit Information Visit Information Visit Type Treatment Note Visit Start Time 09:45 Visit Stop Time 10:30 Total Visit Minutes 38 Visit Number 7 PT-OP-B Current Condition Start: 05/28/19 15:59 Freq: Status: Active Protocol: Document 05/28/19 17:35 EA (Rec: 05/29/19 08:12 EA [id number]) Current Condition History of Current Condition Onset Date March Current Complaints R knee pain History of Current Condition Pt reports he used to run daily of 6-7 miles with no symptoms noted until last March of 2019. He states right knee cap pain gradually builds up and made his run decreased to < a 2 miles, in addition to right knees issue, his right hamstring and left mid calf tendon also bother him in the past 3 weeks but states much feeling better after using knee support and velcro to left calf. Patient denies any swelling or abnormality and also past injury that could relate to current problem. Pt denies any imaging performed in the past. Prior Treatments and Tests No imaging. No formal treatment. Future Testing and Treatments Planned None identified Treatment Goals Patient/Caregiver Goals 1. Patient would like to know home exercises he can do to prevent recurrence of pain to BLE. 2. He would like to eliminate pain to enable him to run > 2miles on regular basis. Prior Functional Status Baseline Function- ADL's Independent Baseline Function- Mobility Independent Baseline Function- Gait No limitation Baseline Function- Work/School Retired Baseline Function- Recreation/Hobbies Distance running ( > 5 miles / day) and cycling ( > 50miles x 3 /wk) Current Functional Impairments (Reported) Functional Limitations- ADL's Indep with no limitations Functional Limitations- Mobility/Gait Indep with no limitation except with High level running Functional Limitations- Work/School retired Functional Limitations- Recreation/ Unable to get back to > 2 Hobbies miles running daily PT-OP-C Subjective Start: 05/28/19 15:59 Freq: Status: Active Protocol: Document 07/03/19 10:28 EA (Rec: 07/03/19 10:36 EA [id number]) OP-PT Subjective Patient Comments Patient Comments Pt reports 4 miles ran this morning and right knee pain disappears after warming up. I guess whatever you are doing is working. Patient Reported Progress Improving PT-OP-E Functional Tests Start: 05/28/19 15:59 Freq: Status: Active Protocol: Document 05/28/19 17:35 EA (Rec: 05/29/19 08:12 EA [id number]) Functional Tests Other 1 Name of Test Bent knee single leg heel raises Score Left 10 reps ; Right unable due to pain PT-OP-G Mobility & Gait Start: 05/28/19 15:59 Freq: Status: Active Protocol: Document 05/28/19 17:35 EA (Rec: 05/29/19 08:12 EA [id number]) OP Gait Assessment Gait Gait Assistance Required: Independent Distance (Feet) 300 Assistive Devices Assistive Device None Comments Gait Comments WFL PT-OP-J Posture/Palpation/Skin Start: 05/28/19 15:59 Freq: Status: Active Protocol: Document 05/28/19 17:35 EA (Rec: 05/29/19 08:12 EA [id number]) Posture Evaluation Comments Posture Comments No functional posture abnormality noted to both kness and ankle Palpation Assessment Location One Palpation Location quads, ITB band, Letf mid calf Palpation Findings Soft Tissue Tightness, Tenderness PT-OP-K Range of Motion Start: 05/28/19 15:59 Freq: Status: Active Protocol: Document 05/28/19 17:35 EA (Rec: 05/29/19 08:12 EA [id number]) Hip Goniometric Range of Motion Hip ROM Limitations Hip ROM Limitations Soft Tissue Tightness Comments tight both hip flexors, hamstrings, ITB, quads but WFL joint ROM Ankle and Foot Goniometric Range of Motion Ankle and Foot ROM Limitations ROM Limitations Soft Tissue Tightness Comments Tight both calves but WFL joint ROM PT-OP-L Special Tests Start: 05/28/19 15:59 Freq: Status: Active Protocol: Document 05/28/19 17:35 EA (Rec: 05/29/19 08:12 EA [id number]) Special Tests Knee Special Tests Dustin's Sign Test Results Right positive Foot/Ankle Special Tests Fung Test Results - Other Special Tests Special Tests Soleus overpressure positive PT-OP-M Strength Start: 05/28/19 15:59 Freq: Status: Active Protocol: Document 05/28/19 17:35 EA (Rec: 05/29/19 08:12 EA [id number]) Hip Strength Hip Manual Muscle Testing Right Reason Not Measured WFL Left Reason Not Measured WFL Knee Strength Knee Manual Muscle Testing Right Reason Not Measured WFL Comments < 10 single leg squat with pain and instability to knee cap Left Flexion (S2) 5 Normal Extension (L3) 5 Normal Comments > 10 single leg squat Ankle/Foot Strength Ankle and Foot Manual Muscle Testing Right Reason Not Measured WFL Comments no limitation Left Reason Not Measured WFL Comments < difficult with bent knee heel raises to left PT-OP-Q Treatments Start: 05/28/19 15:59 Freq: Status: Active Protocol: Document 07/03/19 10:28 EA (Rec: 07/03/19 10:36 EA [id number]) Cardio Equipment Treadmill Duration (Minutes) 4 Speed 3 Incline 1-8 Gym Equipment Cable Column (Body Solid) squat Details squat row Resistance 30# Reps/Time 15 Shuttle Recovery Unilateral Squats Details 75# Shuttle Recovery Platform Stable Reps/Time x 15 reps x 2 Bilateral Squats Details 125lbs Shuttle Recovery Platform Stable Reps/Time x 15 reps x 2 Therapeutic Exercises Supine Exercises 3 Supine Exercise Name Bridge with marching. Reps/Minutes x 20 marches x 2 sets 2 Supine Exercise Name Quads stretch Comments manual 1 Supine Exercise Name Hamstring stretch Side bilateral Comments passive Standing Exercises 7 Standing Exercise Name fwd walking lunge with marching Reps/Minutes 50ft 6 Standing Exercise Name SLS progressed to single leg squat in mirror Side bilateral Reps/Minutes 8 ea 5 Standing Exercise Name side step squat Side bilateral Equipment Used teal tband Reps/Minutes 20ft ea Comments side step then squat then sidestepping in squatted position 3 Standing Exercise Name Heel raises Side bilateral Reps/Minutes x 12 reps Comments Single Leg 1 Standing Exercise Name 6 steps descent and back up Reps/Minutes x 10 reps x 2 sets Comments control with good knee -hip alignment. Manual Therapy Treatment Soft Tissue Mobilization 1 Body Location left calf and right hamstring Mobilization Type Myofascial Release,Rolling, Sustained Pressure Intensity/Depth Moderate Body Position Prone Joint Mobilizations Patellofemoral Joint Patellofemoral Direction medial, superior-inferior Grade III Body Position Supine PT-OP-R Modalities Start: 05/28/19 15:59 Freq: Status: Active Protocol: Document 06/25/19 08:30 EA (Rec: 06/25/19 08:31 EA [id number]) Hot Pack/Cold Pack Treatment Hot Pack Location left calf and right hamstring Patient Position Prone Treatment Duration (minutes) 10 PT-OP-T Assessment and Plan Start: 05/28/19 15:59 Freq: Status: Active Protocol: Document 07/03/19 10:28 EA (Rec: 07/03/19 10:36 EA [id number]) Physical Therapy Assessment Assessment Summary Assessment Pt shows no discomfort or pain complaint during therex. Patient continue to progress. Physical Therapy Plan Next Visit Focus/Plan Next Note Type Treatment Note Next Visit Plan Advance as tolerated
--- NOTE | 2019-07-10 15:37 | PT.OTN ---
Current Diagnoses Pain in right knee (07/10/19) Physical Therapy Treatment Note PT-OP-A Visit Information Start: 05/28/19 15:59 Freq: Status: Active Protocol: Document 07/10/19 15:22 LJ (Rec: 07/10/19 15:37 LJ [id number]) Out-Patient Physical Therapy Visit Information Visit Information Visit Start Time 09:00 Visit Stop Time 09:45 Total Visit Minutes 45 Visit Number 8 Number of CLEANER FURNITURE Visits 1 PT-OP-B Current Condition Start: 05/28/19 15:59 Freq: Status: Active Protocol: Document 05/28/19 17:35 EA (Rec: 05/29/19 08:12 EA [id number]) Current Condition History of Current Condition Onset Date March Current Complaints R knee pain History of Current Condition Pt reports he used to run daily of 6-7 miles with no symptoms noted until last March of 2019. He states right knee cap pain gradually builds up and made his run decreased to < a 2 miles, in addition to right knees issue, his right hamstring and left mid calf tendon also bother him in the past 3 weeks but states much feeling better after using knee support and velcro to left calf. Patient denies any swelling or abnormality and also past injury that could relate to current problem. Pt denies any imaging performed in the past. Prior Treatments and Tests No imaging. No formal treatment. Future Testing and Treatments Planned None identified Treatment Goals Patient/Caregiver Goals 1. Patient would like to know home exercises he can do to prevent recurrence of pain to BLE. 2. He would like to eliminate pain to enable him to run > 2miles on regular basis. Prior Functional Status Baseline Function- ADL's Independent Baseline Function- Mobility Independent Baseline Function- Gait No limitation Baseline Function- Work/School Retired Baseline Function- Recreation/Hobbies Distance running ( > 5 miles / day) and cycling ( > 50miles x 3 /wk) Current Functional Impairments (Reported) Functional Limitations- ADL's Indep with no limitations Functional Limitations- Mobility/Gait Indep with no limitation except with High level running Functional Limitations- Work/School retired Functional Limitations- Recreation/ Unable to get back to > 2 Hobbies miles running daily PT-OP-C Subjective Start: 05/28/19 15:59 Freq: Status: Active Protocol: Document 07/10/19 15:22 MINESH (Rec: 07/10/19 15:37 LJ [id number]) OP-PT Subjective Patient Comments Patient Comments Pt reports he ran 2 miles and after warming up the right knee discomfort disappears. No longer painful, just uncomfortable. PT-OP-E Functional Tests Start: 05/28/19 15:59 Freq: Status: Active Protocol: Document 05/28/19 17:35 EA (Rec: 05/29/19 08:12 EA [id number]) Functional Tests Other 1 Name of Test Bent knee single leg heel raises Score Left 10 reps ; Right unable due to pain PT-OP-G Mobility & Gait Start: 05/28/19 15:59 Freq: Status: Active Protocol: Document 05/28/19 17:35 EA (Rec: 05/29/19 08:12 EA [id number]) OP Gait Assessment Gait Gait Assistance Required: Independent Distance (Feet) 300 Assistive Devices Assistive Device None Comments Gait Comments WFL PT-OP-J Posture/Palpation/Skin Start: 05/28/19 15:59 Freq: Status: Active Protocol: Document 05/28/19 17:35 EA (Rec: 05/29/19 08:12 EA [id number]) Posture Evaluation Comments Posture Comments No functional posture abnormality noted to both kness and ankle Palpation Assessment Location One Palpation Location quads, ITB band, Letf mid calf Palpation Findings Soft Tissue Tightness, Tenderness PT-OP-K Range of Motion Start: 05/28/19 15:59 Freq: Status: Active Protocol: Document 05/28/19 17:35 EA (Rec: 05/29/19 08:12 EA [id number]) Hip Goniometric Range of Motion Hip ROM Limitations Hip ROM Limitations Soft Tissue Tightness Comments tight both hip flexors, hamstrings, ITB, quads but WFL joint ROM Ankle and Foot Goniometric Range of Motion Ankle and Foot ROM Limitations ROM Limitations Soft Tissue Tightness Comments Tight both calves but WFL joint ROM PT-OP-L Special Tests Start: 05/28/19 15:59 Freq: Status: Active Protocol: Document 05/28/19 17:35 EA (Rec: 05/29/19 08:12 EA [id number]) Special Tests Knee Special Tests Dustin's Sign Test Results Right positive Foot/Ankle Special Tests Fung Test Results - Other Special Tests Special Tests Soleus overpressure positive PT-OP-M Strength Start: 05/28/19 15:59 Freq: Status: Active Protocol: Document 05/28/19 17:35 EA (Rec: 05/29/19 08:12 EA [id number]) Hip Strength Hip Manual Muscle Testing Right Reason Not Measured WFL Left Reason Not Measured WFL Knee Strength Knee Manual Muscle Testing Right Reason Not Measured WFL Comments < 10 single leg squat with pain and instability to knee cap Left Flexion (S2) 5 Normal Extension (L3) 5 Normal Comments > 10 single leg squat Ankle/Foot Strength Ankle and Foot Manual Muscle Testing Right Reason Not Measured WFL Comments no limitation Left Reason Not Measured WFL Comments < difficult with bent knee heel raises to left PT-OP-Q Treatments Start: 05/28/19 15:59 Freq: Status: Active Protocol: Document 07/10/19 15:22 LJ (Rec: 07/10/19 15:37 LJ [id number]) Cardio Equipment Treadmill Duration (Minutes) 4 Speed 3 Incline 1-8 Gym Equipment Cable Column (Body Solid) squat Details squat row Resistance 30# Reps/Time 15 Shuttle Recovery Unilateral Squats Details 75# Shuttle Recovery Platform Stable Reps/Time x 15 reps x 2 Bilateral Squats Details 125lbs Shuttle Recovery Platform Stable Reps/Time x 15 reps x 2 Therapeutic Exercises Supine Exercises 4 Supine Exercise Name Bridge- single leg Reps/Minutes 2x 10 Comments bilat 3 Supine Exercise Name Bridge with marching. Reps/Minutes x 20 marches x 2 sets Prone Exercises 1 Prone Exercise Name passive quad stretch Comments right side contract relax x3 Standing Exercises 7 Standing Exercise Name fwd walking lunge with marching Reps/Minutes 50ft 5 Standing Exercise Name side step squat Side bilateral Equipment Used teal tband Reps/Minutes 20ft ea Comments side step then squat then sidestepping in squatted position 3 Standing Exercise Name Heel raises Side bilateral Reps/Minutes x 12 reps Comments Single Leg 2 Standing Exercise Name gastroc and soleus stretch Comments bilat 1 Standing Exercise Name 6 steps ascend,descend; sideways, backward ascend Reps/Minutes x 10 reps x 2 sets Comments control with good knee -hip alignment. PT-OP-R Modalities Start: 05/28/19 15:59 Freq: Status: Active Protocol: Document 06/25/19 08:30 EA (Rec: 06/25/19 08:31 EA [id number]) Hot Pack/Cold Pack Treatment Hot Pack Location left calf and right hamstring Patient Position Prone Treatment Duration (minutes) 10 PT-OP-T Assessment and Plan Start: 05/28/19 15:59 Freq: Status: Active Protocol: Document 07/10/19 15:22 LJ (Rec: 07/10/19 15:37 LJ [id number]) Physical Therapy Assessment Goals Four Impairment Impaired hip, knee ankle muscular excursion [employer] Goal (LTG) Patient will exhibit functional muscular excursion both hip flexors, hamstrings, calves, ITB to prevent muscular imbalance. LTG Duration 5 wks Three Impairment LEFS score of 55/80 [employer] Goal (LTG) LEFS score of > 65/80 to reach highest functional level LTG Duration 5 wks Two Impairment Impaired distance running Alf Goal (LTG) Patient will run more than 2 miles three time a week with no increase of pain LTG Duration 4 wks Assessment Summary Assessment Pt shows no discomfort or pain complaint during therex. Patient continue to progress. Physical Therapy Plan Frequency and Duration Frequency of Treatment 2x/Week Duration of Treatment 8 wks Plan of Care Start Date 05/28/19 Plan of Care End Date 07/23/19 Next Visit Focus/Plan Next Note Type Treatment Note Next Visit Plan Advance as tolerated
--- NOTE | 2019-07-15 09:08 | PT.OTN ---
Current Diagnoses Pain in right knee (07/15/19) Physical Therapy Treatment Note PT-OP-A Visit Information Start: 05/28/19 15:59 Freq: Status: Active Protocol: Document 07/15/19 09:08 DLM (Rec: 07/15/19 10:24 DLM [id number]) Out-Patient Physical Therapy Visit Information Visit Information Visit Type Treatment Note Visit Start Time 09:08 Visit Stop Time 09:58 Total Visit Minutes 50 Visit Number 9 Number of BUSINESS TECHNOLOGY ARCHITECT Visits 0 Evaluation Information Evaluation Date 05/28/19 PT-OP-B Current Condition Start: 05/28/19 15:59 Freq: Status: Active Protocol: Document 05/28/19 17:35 EA (Rec: 05/29/19 08:12 EA [id number]) Current Condition History of Current Condition Onset Date March Current Complaints R knee pain History of Current Condition Pt reports he used to run daily of 6-7 miles with no symptoms noted until last March of 2019. He states right knee cap pain gradually builds up and made his run decreased to < a 2 miles, in addition to right knees issue, his right hamstring and left mid calf tendon also bother him in the past 3 weeks but states much feeling better after using knee support and velcro to left calf. Patient denies any swelling or abnormality and also past injury that could relate to current problem. Pt denies any imaging performed in the past. Prior Treatments and Tests No imaging. No formal treatment. Future Testing and Treatments Planned None identified Treatment Goals Patient/Caregiver Goals 1. Patient would like to know home exercises he can do to prevent recurrence of pain to BLE. 2. He would like to eliminate pain to enable him to run > 2miles on regular basis. Prior Functional Status Baseline Function- ADL's Independent Baseline Function- Mobility Independent Baseline Function- Gait No limitation Baseline Function- Work/School Retired Baseline Function- Recreation/Hobbies Distance running ( > 5 miles / day) and cycling ( > 50miles x 3 /wk) Current Functional Impairments (Reported) Functional Limitations- ADL's Indep with no limitations Functional Limitations- Mobility/Gait Indep with no limitation except with High level running Functional Limitations- Work/School retired Functional Limitations- Recreation/ Unable to get back to > 2 Hobbies miles running daily PT-OP-C Subjective Start: 05/28/19 15:59 Freq: Status: Active Protocol: Document 07/15/19 09:08 DLM (Rec: 07/15/19 10:24 DLM [id number]) OP-PT Subjective Patient Comments Patient Comments He has been able to run 4 miles and he rode his bike here. He notices lightness in left hamstring after running but it improves with stretching. Patient Reported Progress Improving OP-PT Pain Assessment Comments Pain Comments no pain reported today PT-OP-E Functional Tests Start: 05/28/19 15:59 Freq: Status: Active Protocol: Document 05/28/19 17:35 EA (Rec: 05/29/19 08:12 EA [id number]) Functional Tests Other 1 Name of Test Bent knee single leg heel raises Score Left 10 reps ; Right unable due to pain PT-OP-G Mobility & Gait Start: 05/28/19 15:59 Freq: Status: Active Protocol: Document 05/28/19 17:35 EA (Rec: 05/29/19 08:12 EA [id number]) OP Gait Assessment Gait Gait Assistance Required: Independent Distance (Feet) 300 Assistive Devices Assistive Device None Comments Gait Comments WFL PT-OP-J Posture/Palpation/Skin Start: 05/28/19 15:59 Freq: Status: Active Protocol: Document 05/28/19 17:35 EA (Rec: 05/29/19 08:12 EA [id number]) Posture Evaluation Comments Posture Comments No functional posture abnormality noted to both kness and ankle Palpation Assessment Location One Palpation Location quads, ITB band, Letf mid calf Palpation Findings Soft Tissue Tightness, Tenderness PT-OP-K Range of Motion Start: 05/28/19 15:59 Freq: Status: Active Protocol: Document 05/28/19 17:35 EA (Rec: 05/29/19 08:12 EA [id number]) Hip Goniometric Range of Motion Hip ROM Limitations Hip ROM Limitations Soft Tissue Tightness Comments tight both hip flexors, hamstrings, ITB, quads but WFL joint ROM Ankle and Foot Goniometric Range of Motion Ankle and Foot ROM Limitations ROM Limitations Soft Tissue Tightness Comments Tight both calves but WFL joint ROM PT-OP-L Special Tests Start: 05/28/19 15:59 Freq: Status: Active Protocol: Document 05/28/19 17:35 EA (Rec: 05/29/19 08:12 EA [id number]) Special Tests Knee Special Tests Dustin's Sign Test Results Right positive Foot/Ankle Special Tests Fung Test Results - Other Special Tests Special Tests Soleus overpressure positive PT-OP-M Strength Start: 05/28/19 15:59 Freq: Status: Active Protocol: Document 05/28/19 17:35 EA (Rec: 05/29/19 08:12 EA [id number]) Hip Strength Hip Manual Muscle Testing Right Reason Not Measured WFL Left Reason Not Measured WFL Knee Strength Knee Manual Muscle Testing Right Reason Not Measured WFL Comments < 10 single leg squat with pain and instability to knee cap Left Flexion (S2) 5 Normal Extension (L3) 5 Normal Comments > 10 single leg squat Ankle/Foot Strength Ankle and Foot Manual Muscle Testing Right Reason Not Measured WFL Comments no limitation Left Reason Not Measured WFL Comments < difficult with bent knee heel raises to left PT-OP-Q Treatments Start: 05/28/19 15:59 Freq: Status: Active Protocol: Document 07/15/19 09:08 DLM (Rec: 07/15/19 10:24 DLM [id number]) Cardio Equipment Treadmill Duration (Minutes) 8 Speed 3.9 Incline 1 Other assessed running form, asymmetric arm swing tristen on left Gym Equipment Cable Column (Body Solid) squat Details squat row Resistance 30# Reps/Time 15 reps x 2 sets Shuttle Recovery Unilateral Squats Details 75# Shuttle Recovery Platform Stable Reps/Time x 15 reps x 2 sets Bilateral Squats Details 125# Shuttle Recovery Platform Stable Reps/Time x 15 reps x 2 Therapeutic Exercises Supine Exercises 4 Supine Exercise Name Bridge- single leg Side bilateral Reps/Minutes 2x 10 Comments cramping in left improved with rest break 3 Supine Exercise Name Bridge with marching. Reps/Minutes x 20 marches x 2 sets 1 Supine Exercise Name Hamstring stretch Side bilateral Equipment Used performed standing today per pt preference Comments passive Prone Exercises 1 Prone Exercise Name passive quad stretch Side bilateral Reps/Minutes 30 sec hold x 2 reps Comments left tighter but improves with stretch Standing Exercises 5 Standing Exercise Name side step squat Side bilateral Equipment Used green loop Reps/Minutes 20ft ea Comments side step then squat then sidestepping in squatted position 2 Standing Exercise Name gastroc and soleus stretch Reps/Minutes reviewed from HEP Comments bilat Manual Therapy Treatment Soft Tissue Mobilization 1 Body Location left calf and right hamstring Mobilization Type Cross-Friction,Myofascial Release,Rolling,Sustained Pressure Intensity/Depth Moderate Body Position Prone PT-OP-R Modalities Start: 05/28/19 15:59 Freq: Status: Active Protocol: Document 06/25/19 08:30 EA (Rec: 06/25/19 08:31 EA [id number]) Hot Pack/Cold Pack Treatment Hot Pack Location left calf and right hamstring Patient Position Prone Treatment Duration (minutes) 10 PT-OP-T Assessment and Plan Start: 05/28/19 15:59 Freq: Status: Active Protocol: Document 07/15/19 09:08 DLM (Rec: 07/15/19 10:24 DLM [id number]) Physical Therapy Assessment Goals Four Impairment Impaired hip, knee ankle muscular excursion Shellfish Harvester Goal (LTG) Good Progress- Patient will exhibit functional muscular excursion both hip flexors, hamstrings, calves, ITB to prevent muscular imbalance. LTG Duration 5 wks Three Impairment LEFS score of 55/80 Shellfish Harvester Goal (LTG) LEFS score of > 65/80 to reach highest functional level LTG Duration 5 wks Two Impairment Impaired distance running Shellfish Harvester Goal (LTG) Met-Patient will run more than 2 miles three time a week with no increase of pain LTG Duration 4 wks One Impairment No HEP in place Shelter Goal (LTG) Good Progress- Patient will exhibit independent HEP LTG Duration 3 wks Progress Towards Goals Progress Towards Goals Progressing Toward Goals Assessment Summary Assessment He reports good progress in all areas. No increased syptoms with treatment today. Assymetric soft tissue tightness noted on exam that improved with manual therapy. Pt has one more visit scheduled in a week then he will be out of town for 6 weeks. Will assess next visit if he ready to discharge to [facility]. Physical Therapy Plan Frequency and Duration Frequency of Treatment 2x/Week Duration of Treatment 8 wks Plan of Care Start Date 05/28/19 Plan of Care End Date 07/23/19 Therapeutic Interventions Therapeutic Interventions Home Exercise Program,Joint Mobilizations,Patient/ Caregiver Education,Self-Care/ Home Management,Soft Tissue Mobilization,Taping, Therapeutic Exercises Modalities Ultrasound Next Visit Focus/Plan Next Note Type Treatment Note Next Visit Plan Review HEP, after next visit he will be out of town for 6 weeks so assess for possible discharge
--- NOTE | 2019-07-25 16:30 | PT.OTN ---
Current Diagnoses Pain in right knee (07/25/19) Physical Therapy Treatment Note PT-OP-A Visit Information Start: 05/28/19 15:59 Freq: Status: Active Protocol: Document 07/25/19 16:15 GGD (Rec: 07/25/19 16:30 GGD [id number]) Out-Patient Physical Therapy Visit Information Visit Information Visit Type Treatment Note Visit Start Time 15:15 Visit Stop Time 16:00 Total Visit Minutes 45 Visit Number 10 Number of INTELLIGENCE GROUP SUPERVISOR Visits 1 Evaluation Information Evaluation Date 05/28/19 PT-OP-B Current Condition Start: 05/28/19 15:59 Freq: Status: Active Protocol: Document 05/28/19 17:35 EA (Rec: 05/29/19 08:12 EA [id number]) Current Condition History of Current Condition Onset Date March Current Complaints R knee pain History of Current Condition Pt reports he used to run daily of 6-7 miles with no symptoms noted until last March of 2019. He states right knee cap pain gradually builds up and made his run decreased to < a 2 miles, in addition to right knees issue, his right hamstring and left mid calf tendon also bother him in the past 3 weeks but states much feeling better after using knee support and velcro to left calf. Patient denies any swelling or abnormality and also past injury that could relate to current problem. Pt denies any imaging performed in the past. Prior Treatments and Tests No imaging. No formal treatment. Future Testing and Treatments Planned None identified Treatment Goals Patient/Caregiver Goals 1. Patient would like to know home exercises he can do to prevent recurrence of pain to BLE. 2. He would like to eliminate pain to enable him to run > 2miles on regular basis. Prior Functional Status Baseline Function- ADL's Independent Baseline Function- Mobility Independent Baseline Function- Gait No limitation Baseline Function- Work/School Retired Baseline Function- Recreation/Hobbies Distance running ( > 5 miles / day) and cycling ( > 50miles x 3 /wk) Current Functional Impairments (Reported) Functional Limitations- ADL's Indep with no limitations Functional Limitations- Mobility/Gait Indep with no limitation except with High level running Functional Limitations- Work/School retired Functional Limitations- Recreation/ Unable to get back to > 2 Hobbies miles running daily PT-OP-C Subjective Start: 05/28/19 15:59 Freq: Status: Active Protocol: Document 07/25/19 16:15 GGD (Rec: 07/25/19 16:30 GGD [id number]) OP-PT Subjective Patient Comments Patient Comments Pt states he ran 5 miles with right knee a little ache for about an hour. PT-OP-E Functional Tests Start: 05/28/19 15:59 Freq: Status: Active Protocol: Document 05/28/19 17:35 EA (Rec: 05/29/19 08:12 EA [id number]) Functional Tests Other 1 Name of Test Bent knee single leg heel raises Score Left 10 reps ; Right unable due to pain PT-OP-G Mobility & Gait Start: 05/28/19 15:59 Freq: Status: Active Protocol: Document 05/28/19 17:35 EA (Rec: 05/29/19 08:12 EA [id number]) OP Gait Assessment Gait Gait Assistance Required: Independent Distance (Feet) 300 Assistive Devices Assistive Device None Comments Gait Comments WFL PT-OP-J Posture/Palpation/Skin Start: 05/28/19 15:59 Freq: Status: Active Protocol: Document 05/28/19 17:35 EA (Rec: 05/29/19 08:12 EA [id number]) Posture Evaluation Comments Posture Comments No functional posture abnormality noted to both kness and ankle Palpation Assessment Location One Palpation Location quads, ITB band, Letf mid calf Palpation Findings Soft Tissue Tightness, Tenderness PT-OP-K Range of Motion Start: 05/28/19 15:59 Freq: Status: Active Protocol: Document 05/28/19 17:35 EA (Rec: 05/29/19 08:12 EA [id number]) Hip Goniometric Range of Motion Hip ROM Limitations Hip ROM Limitations Soft Tissue Tightness Comments tight both hip flexors, hamstrings, ITB, quads but WFL joint ROM Ankle and Foot Goniometric Range of Motion Ankle and Foot ROM Limitations ROM Limitations Soft Tissue Tightness Comments Tight both calves but WFL joint ROM PT-OP-L Special Tests Start: 05/28/19 15:59 Freq: Status: Active Protocol: Document 05/28/19 17:35 EA (Rec: 05/29/19 08:12 EA [id number]) Special Tests Knee Special Tests Dustin's Sign Test Results Right positive Foot/Ankle Special Tests Fung Test Results - Other Special Tests Special Tests Soleus overpressure positive PT-OP-M Strength Start: 05/28/19 15:59 Freq: Status: Active Protocol: Document 05/28/19 17:35 EA (Rec: 05/29/19 08:12 EA [id number]) Hip Strength Hip Manual Muscle Testing Right Reason Not Measured WFL Left Reason Not Measured WFL Knee Strength Knee Manual Muscle Testing Right Reason Not Measured WFL Comments < 10 single leg squat with pain and instability to knee cap Left Flexion (S2) 5 Normal Extension (L3) 5 Normal Comments > 10 single leg squat Ankle/Foot Strength Ankle and Foot Manual Muscle Testing Right Reason Not Measured WFL Comments no limitation Left Reason Not Measured WFL Comments < difficult with bent knee heel raises to left PT-OP-Q Treatments Start: 05/28/19 15:59 Freq: Status: Active Protocol: Document 07/25/19 16:15 GGD (Rec: 07/25/19 16:30 GGD [id number]) Gym Equipment Shuttle Recovery Unilateral Squats Details 75# Shuttle Recovery Platform Stable Reps/Time x 15 reps x 2 sets Bilateral Squats Details 125# Shuttle Recovery Platform Stable Reps/Time x 15 reps x 2 Therapeutic Exercises Supine Exercises 4 Supine Exercise Name Bridge- single leg Side bilateral Reps/Minutes 2x 10 Comments cramping in left improved with rest break 3 Supine Exercise Name Bridge with ball and hamstring curl. Reps/Minutes x 20 1 Supine Exercise Name Hamstring stretch Side bilateral Equipment Used performed standing today per pt preference Comments passive Prone Exercises 1 Prone Exercise Name passive quad stretch Side bilateral Reps/Minutes 30 sec hold x 2 reps Standing Exercises 5 Standing Exercise Name side step squat Side bilateral Equipment Used green loop Reps/Minutes 20ft ea Comments side step then squat then sidestepping in squatted position 3 Standing Exercise Name Heel raises Side bilateral Reps/Minutes x 12 reps Comments Single Leg with limit UE support 2 Standing Exercise Name gastroc and soleus stretch Reps/Minutes reviewed from HEP Comments bilat Manual Therapy Treatment Soft Tissue Mobilization 1 Body Location left calf and right hamstring Mobilization Type Cross-Friction,Myofascial Release,Rolling,Sustained Pressure Intensity/Depth Moderate Body Position Prone PT-OP-R Modalities Start: 05/28/19 15:59 Freq: Status: Active Protocol: Document 06/25/19 08:30 EA (Rec: 06/25/19 08:31 EA [id number]) Hot Pack/Cold Pack Treatment Hot Pack Location left calf and right hamstring Patient Position Prone Treatment Duration (minutes) 10 PT-OP-T Assessment and Plan Start: 05/28/19 15:59 Freq: Status: Active Protocol: Document 07/25/19 16:15 GGD (Rec: 07/25/19 16:30 GGD [email or web address]) Physical Therapy Assessment Goals Four Impairment Impaired hip, knee ankle muscular excursion Shelter Goal (LTG) Good Progress- Patient will exhibit functional muscular excursion both hip flexors, hamstrings, calves, ITB to prevent muscular imbalance. LTG Duration 5 wks Three Impairment LEFS score of 55/80 Development Eng Goal (LTG) LEFS score of > 65/80 to reach highest functional level LTG Duration 5 wks Two Impairment Impaired distance running Development Eng Goal (LTG) Met-Patient will run more than 2 miles three time a week with no increase of pain LTG Duration 4 wks One Impairment No HEP in place Shelter Goal (LTG) Good Progress- Patient will exhibit independent HEP LTG Duration 3 wks Assessment Summary Assessment Pt improving with strength and tissue flexibility. He had mild tissue restriction on right lateral knee. He has one visit before gone for 6 weeks . Physical Therapy Plan Frequency and Duration Frequency of Treatment 2x/Week Duration of Treatment 8 wks Plan of Care Start Date 05/28/19 Plan of Care End Date 07/23/19 Next Visit Focus/Plan Next Note Type Treatment Note Next Visit Plan Review HEP, after next visit he will be out of town for 6 weeks so assess for possible discharge
--- NOTE | 2019-07-29 10:45 | PT.OTN ---
Current Diagnoses Pain in right knee (07/29/19) Physical Therapy Treatment Note PT-OP-A Visit Information Start: 05/28/19 15:59 Freq: Status: Active Protocol: Document 07/29/19 10:36 AMH (Rec: 07/29/19 10:44 AMH [email or web address]) Out-Patient Physical Therapy Visit Information Visit Information Visit Type Treatment Note Visit Start Time 09:45 Visit Stop Time 10:20 Total Visit Minutes 35 Visit Number 11 Number of MID LEVEL PROJECT MANAGER Visits 0 PT-OP-B Current Condition Start: 05/28/19 15:59 Freq: Status: Active Protocol: Document 05/28/19 17:35 EA (Rec: 05/29/19 08:12 EA [id number]) Current Condition History of Current Condition Onset Date March Current Complaints R knee pain History of Current Condition Pt reports he used to run daily of 6-7 miles with no symptoms noted until last March of 2019. He states right knee cap pain gradually builds up and made his run decreased to < a 2 miles, in addition to right knees issue, his right hamstring and left mid calf tendon also bother him in the past 3 weeks but states much feeling better after using knee support and velcro to left calf. Patient denies any swelling or abnormality and also past injury that could relate to current problem. Pt denies any imaging performed in the past. Prior Treatments and Tests No imaging. No formal treatment. Future Testing and Treatments Planned None identified Treatment Goals Patient/Caregiver Goals 1. Patient would like to know home exercises he can do to prevent recurrence of pain to BLE. 2. He would like to eliminate pain to enable him to run > 2miles on regular basis. Prior Functional Status Baseline Function- ADL's Independent Baseline Function- Mobility Independent Baseline Function- Gait No limitation Baseline Function- Work/School Retired Baseline Function- Recreation/Hobbies Distance running ( > 5 miles / day) and cycling ( > 50miles x 3 /wk) Current Functional Impairments (Reported) Functional Limitations- ADL's Indep with no limitations Functional Limitations- Mobility/Gait Indep with no limitation except with High level running Functional Limitations- Work/School retired Functional Limitations- Recreation/ Unable to get back to > 2 Hobbies miles running daily PT-OP-C Subjective Start: 05/28/19 15:59 Freq: Status: Active Protocol: Document 07/29/19 10:36 AMH (Rec: 07/29/19 10:44 AMH [id number]) OP-PT Subjective Patient Comments Patient Comments pt reports he ran 6 miles and did not experience any acheyness or tightness. He leave tomorrow for traveling PT-OP-E Functional Tests Start: 05/28/19 15:59 Freq: Status: Active Protocol: Document 05/28/19 17:35 EA (Rec: 05/29/19 08:12 EA [id number]) Functional Tests Other 1 Name of Test Bent knee single leg heel raises Score Left 10 reps ; Right unable due to pain PT-OP-G Mobility & Gait Start: 05/28/19 15:59 Freq: Status: Active Protocol: Document 05/28/19 17:35 EA (Rec: 05/29/19 08:12 EA [id number]) OP Gait Assessment Gait Gait Assistance Required: Independent Distance (Feet) 300 Assistive Devices Assistive Device None Comments Gait Comments WFL PT-OP-J Posture/Palpation/Skin Start: 05/28/19 15:59 Freq: Status: Active Protocol: Document 05/28/19 17:35 EA (Rec: 05/29/19 08:12 EA [id number]) Posture Evaluation Comments Posture Comments No functional posture abnormality noted to both kness and ankle Palpation Assessment Location One Palpation Location quads, ITB band, Letf mid calf Palpation Findings Soft Tissue Tightness, Tenderness PT-OP-K Range of Motion Start: 05/28/19 15:59 Freq: Status: Active Protocol: Document 05/28/19 17:35 EA (Rec: 05/29/19 08:12 EA [id number]) Hip Goniometric Range of Motion Hip ROM Limitations Hip ROM Limitations Soft Tissue Tightness Comments tight both hip flexors, hamstrings, ITB, quads but WFL joint ROM Ankle and Foot Goniometric Range of Motion Ankle and Foot ROM Limitations ROM Limitations Soft Tissue Tightness Comments Tight both calves but WFL joint ROM PT-OP-L Special Tests Start: 05/28/19 15:59 Freq: Status: Active Protocol: Document 05/28/19 17:35 EA (Rec: 05/29/19 08:12 EA [id number]) Special Tests Knee Special Tests Dustin's Sign Test Results Right positive Foot/Ankle Special Tests Fung Test Results - Other Special Tests Special Tests Soleus overpressure positive PT-OP-M Strength Start: 05/28/19 15:59 Freq: Status: Active Protocol: Document 05/28/19 17:35 EA (Rec: 05/29/19 08:12 EA [id number]) Hip Strength Hip Manual Muscle Testing Right Reason Not Measured WFL Left Reason Not Measured WFL Knee Strength Knee Manual Muscle Testing Right Reason Not Measured WFL Comments < 10 single leg squat with pain and instability to knee cap Left Flexion (S2) 5 Normal Extension (L3) 5 Normal Comments > 10 single leg squat Ankle/Foot Strength Ankle and Foot Manual Muscle Testing Right Reason Not Measured WFL Comments no limitation Left Reason Not Measured WFL Comments < difficult with bent knee heel raises to left PT-OP-Q Treatments Start: 05/28/19 15:59 Freq: Status: Active Protocol: Document 07/29/19 10:36 AMH (Rec: 07/29/19 10:44 AMH [email or web address]) Gym Equipment Shuttle Recovery Unilateral Squats Details 75# Shuttle Recovery Platform Stable Reps/Time x 15 reps x 2 sets Bilateral Squats Details 125# Shuttle Recovery Platform Stable Reps/Time x 15 reps x 2 Therapeutic Exercises Supine Exercises 4 Supine Exercise Name Bridge- single leg Side bilateral Reps/Minutes 2x 10 Comments cramping in left improved with rest break 2 Supine Exercise Name Quads stretch Comments manual 1 Supine Exercise Name Hamstring stretch Side bilateral Equipment Used performed standing today per pt preference Comments passive Standing Exercises 7 Standing Exercise Name standing single leg squats Comments cueing given to keep hips back behind the knee 5 Standing Exercise Name side step squat Side bilateral Equipment Used green loop Reps/Minutes 20ft ea Comments side step then squat then sidestepping in squatted position 2 Standing Exercise Name gastroc and soleus stretch Reps/Minutes reviewed from HEP Comments bilat PT-OP-R Modalities Start: 05/28/19 15:59 Freq: Status: Active Protocol: Document 06/25/19 08:30 EA (Rec: 06/25/19 08:31 EA [id number]) Hot Pack/Cold Pack Treatment Hot Pack Location left calf and right hamstring Patient Position Prone Treatment Duration (minutes) 10 PT-OP-T Assessment and Plan Start: 05/28/19 15:59 Freq: Status: Active Protocol: Document 07/29/19 10:36 AMH (Rec: 07/29/19 10:44 AMH [email or web address]) Physical Therapy Assessment Assessment Summary Assessment All exericses were reviewed with Rodrigo today. He is doing well with his home program, he had no pain today. He ran 6 miles without any c /o tightness. He will be discharged from PT today Physical Therapy Plan Discharge Physical Therapy Discharge Reasons Goals Met
--- NOTE | 2019-07-29 10:45 | PT.OTN ---
Current Diagnoses Pain in right knee (07/29/19) Physical Therapy Treatment Note PT-OP-A Visit Information Start: 05/28/19 15:59 Freq: Status: Active Protocol: Document 07/29/19 10:36 [facility] (Rec: 07/29/19 10:44 AMH [email or web address]) Out-Patient Physical Therapy Visit Information Visit Information Visit Type Treatment Note Visit Start Time 09:45 Visit Stop Time 10:20 Total Visit Minutes 35 Visit Number 11 Number of DATABASE REPORTING CONSULTANT Visits 0 PT-OP-B Current Condition Start: 05/28/19 15:59 Freq: Status: Active Protocol: Document 05/28/19 17:35 EA (Rec: 05/29/19 08:12 EA [id number]) Current Condition History of Current Condition Onset Date March Current Complaints R knee pain History of Current Condition Pt reports he used to run daily of 6-7 miles with no symptoms noted until last March of 2019. He states right knee cap pain gradually builds up and made his run decreased to < a 2 miles, in addition to right knees issue, his right hamstring and left mid calf tendon also bother him in the past 3 weeks but states much feeling better after using knee support and velcro to left calf. Patient denies any swelling or abnormality and also past injury that could relate to current problem. Pt denies any imaging performed in the past. Prior Treatments and Tests No imaging. No formal treatment. Future Testing and Treatments Planned None identified Treatment Goals Patient/Caregiver Goals 1. Patient would like to know home exercises he can do to prevent recurrence of pain to BLE. 2. He would like to eliminate pain to enable him to run > 2miles on regular basis. Prior Functional Status Baseline Function- ADL's Independent Baseline Function- Mobility Independent Baseline Function- Gait No limitation Baseline Function- Work/School Retired Baseline Function- Recreation/Hobbies Distance running ( > 5 miles / day) and cycling ( > 50miles x 3 /wk) Current Functional Impairments (Reported) Functional Limitations- ADL's Indep with no limitations Functional Limitations- Mobility/Gait Indep with no limitation except with High level running Functional Limitations- Work/School retired Functional Limitations- Recreation/ Unable to get back to > 2 Hobbies miles running daily PT-OP-C Subjective Start: 05/28/19 15:59 Freq: Status: Active Protocol: Document 07/29/19 10:36 AM[facility] (Rec: 07/29/19 10:44 AMH [email or web address]) OP-PT Subjective Patient Comments Patient Comments pt reports he ran 6 miles and did not experience any acheyness or tightness. He leave tomorrow for traveling PT-OP-E Functional Tests Start: 05/28/19 15:59 Freq: Status: Active Protocol: Document 05/28/19 17:35 EA (Rec: 05/29/19 08:12 EA [id number]) Functional Tests Other 1 Name of Test Bent knee single leg heel raises Score Left 10 reps ; Right unable due to pain PT-OP-G Mobility & Gait Start: 05/28/19 15:59 Freq: Status: Active Protocol: Document 05/28/19 17:35 EA (Rec: 05/29/19 08:12 EA [id number]) OP Gait Assessment Gait Gait Assistance Required: Independent Distance (Feet) 300 Assistive Devices Assistive Device None Comments Gait Comments WFL PT-OP-J Posture/Palpation/Skin Start: 05/28/19 15:59 Freq: Status: Active Protocol: Document 05/28/19 17:35 EA (Rec: 05/29/19 08:12 EA [id number]) Posture Evaluation Comments Posture Comments No functional posture abnormality noted to both kness and ankle Palpation Assessment Location One Palpation Location quads, ITB band, Letf mid calf Palpation Findings Soft Tissue Tightness, Tenderness PT-OP-K Range of Motion Start: 05/28/19 15:59 Freq: Status: Active Protocol: Document 05/28/19 17:35 EA (Rec: 05/29/19 08:12 EA [id number]) Hip Goniometric Range of Motion Hip ROM Limitations Hip ROM Limitations Soft Tissue Tightness Comments tight both hip flexors, hamstrings, ITB, quads but WFL joint ROM Ankle and Foot Goniometric Range of Motion Ankle and Foot ROM Limitations ROM Limitations Soft Tissue Tightness Comments Tight both calves but WFL joint ROM PT-OP-L Special Tests Start: 05/28/19 15:59 Freq: Status: Active Protocol: Document 05/28/19 17:35 EA (Rec: 05/29/19 08:12 EA [id number]) Special Tests Knee Special Tests Dustin's Sign Test Results Right positive Foot/Ankle Special Tests Fung Test Results - Other Special Tests Special Tests Soleus overpressure positive PT-OP-M Strength Start: 05/28/19 15:59 Freq: Status: Active Protocol: Document 05/28/19 17:35 EA (Rec: 05/29/19 08:12 EA [email or web address]) Hip Strength Hip Manual Muscle Testing Right Reason Not Measured WFL Left Reason Not Measured WFL Knee Strength Knee Manual Muscle Testing Right Reason Not Measured WFL Comments < 10 single leg squat with pain and instability to knee cap Left Flexion (S2) 5 Normal Extension (L3) 5 Normal Comments > 10 single leg squat Ankle/Foot Strength Ankle and Foot Manual Muscle Testing Right Reason Not Measured WFL Comments no limitation Left Reason Not Measured WFL Comments < difficult with bent knee heel raises to left PT-OP-Q Treatments Start: 05/28/19 15:59 Freq: Status: Active Protocol: Document 07/29/19 10:36 AMH (Rec: 07/29/19 10:44 AMH [email or web address]) Gym Equipment Shuttle Recovery Unilateral Squats Details 75# Shuttle Recovery Platform Stable Reps/Time x 15 reps x 2 sets Bilateral Squats Details 125# Shuttle Recovery Platform Stable Reps/Time x 15 reps x 2 Therapeutic Exercises Supine Exercises 4 Supine Exercise Name Bridge- single leg Side bilateral Reps/Minutes 2x 10 Comments cramping in left improved with rest break 2 Supine Exercise Name Quads stretch Comments manual 1 Supine Exercise Name Hamstring stretch Side bilateral Equipment Used performed standing today per pt preference Comments passive Standing Exercises 7 Standing Exercise Name standing single leg squats Comments cueing given to keep hips back behind the knee 5 Standing Exercise Name side step squat Side bilateral Equipment Used green loop Reps/Minutes 20ft ea Comments side step then squat then sidestepping in squatted position 2 Standing Exercise Name gastroc and soleus stretch Reps/Minutes reviewed from HEP Comments bilat PT-OP-R Modalities Start: 05/28/19 15:59 Freq: Status: Active Protocol: Document 06/25/19 08:30 EA (Rec: 06/25/19 08:31 EA [id number]) Hot Pack/Cold Pack Treatment Hot Pack Location left calf and right hamstring Patient Position Prone Treatment Duration (minutes) 10 PT-OP-T Assessment and Plan Start: 05/28/19 15:59 Freq: Status: Active Protocol: Document 07/29/19 10:36 AMH (Rec: 07/29/19 10:44 AMH [email or web address]) Physical Therapy Assessment Assessment Summary Assessment All exercises were reviewed with Rodrigo today. He is doing well with his home program, he had no pain today. He ran 6 miles without any c /o tightness. He will be discharged from PT today Physical Therapy Plan Discharge Physical Therapy Discharge Reasons Goals Met
== END 2019-08-16 12:26 | disposition home or self-care (01) ==
LOC: PHYS 10:00
PROVIDERS: Family Provider Orthopaedic Surgery; PCP Internal Medicine; Visit Provider Internal Medicine
DX: M25.561 Pain in right knee (principal)
CPT/HCPCS: 97110; 97116; 97140; 97161; 97530

== ENCOUNTER → 2019-08-13 14:52 | Outpatient (CLI) | payer OTHER, SELFPAY | PROVIDERS: Family Provider Orthopaedic Surgery; PCP Internal Medicine | DX: Z23 Encounter for immunization (principal) | CPT/HCPCS: 90471; 90662 ==

== ENCOUNTER → 2019-09-20 11:45 | Outpatient (CLI) | payer OTHER, SELFPAY ==
[2019-09-20 14:02] LABS: Prostate Specific Antigen 1.86 ng/mL (0.10-4.00)
== END ==
PROVIDERS: Family Provider Internal Medicine; PCP Internal Medicine; Visit Provider Urology
DX: N40.1 Benign prostatic hyperplasia with lower urinary tract symptoms (principal)
CPT/HCPCS: 36415; 84153

== ENCOUNTER → 2020-01-09 09:26 | Outpatient (CLI) | payer OTHER, SELFPAY ==
[2020-01-09 10:11] LABS: Add Manual Diff / Slide Review NO; Basophils Absolute Auto 0 /uL (0-100); Basophils Percent Auto 0.9 % (0-2); Eosinophils Absolute Auto 0 /uL (0-450); Eosinophils Percent Auto 0.5 % (2-4); Hematocrit 42.9 % (41-53); Hemoglobin 14.6 g/dL (13.5-17.5); Lymphocytes Absolute Auto 600 /uL (1100-4500); Lymphocytes Percent Auto 13.4 % (25-40); Monocytes Absolute Auto 600 /uL (0-900); Neutrophils Absolute Auto 3200 /uL (1500-7000); Neutrophils Percent Auto 72.2 % (50-75); Platelet Count 198 X10^3/uL (150-400); Red Blood Cell Count 4.71 X10^6/uL (4.5-5.9); Red Cell Distribution Width 14.6 % (11.6-14.8); White Blood Cell Count 4.4 X10^3/uL (4.5-11.0)
[2020-01-09 10:42] LABS: Alanine Aminotransferase 15 IU/L (<50); Albumin 4.5 g/dL (3.5-5.0); Albumin Globulin Ratio 1.8 (1.0-2.8); Alkaline Phosphatase 51 U/L (38-126); Aspartate Aminotransferase 27 IU/L (17-59); BUN Creatinine Ratio 23.3 (6-22); Blood Urea Nitrogen 21 mg/dL (9-20); Calcium 9.7 mg/dL (8.4-10.2); Carbon Dioxide 27 mmol/L (22-32); Chloride 103 mmol/L (98-107); Cholesterol 203 mg/dL (140-199); Estimated Glomerular Filt Rate > 60.0 mL/min (>60); Globulin 2.5 g/dL (1.7-4.1); Glucose 99 mg/dL (80-110); HDL Cholesterol 90 mg/dL (40-60); HEMOLYSIS < 15 (0-50); LDL Cholesterol Calculated 98 mg/dL (<100); Potassium 4.7 mmol/L (3.4-5.1); Sodium 139 mmol/L (137-145); Triglycerides 73 mg/dL (35-150)
== END ==
PROVIDERS: Family Provider Internal Medicine; PCP Internal Medicine; Referring Provider Internal Medicine; Visit Provider Internal Medicine
DX: Z00.01 Encounter for general adult medical examination with abnormal findings (principal); G43.909 Migraine, unspecified, not intractable, without status migrainosus; K40.90 Unilateral inguinal hernia, without obstruction or gangrene, not specified as recurrent
CPT/HCPCS: 36415; 80053; 80061; 85025

== ENCOUNTER → 2020-08-14 13:02 | Outpatient (CLI) | payer OTHER, SELFPAY ==
[2020-08-16 13:22] LABS: COVID19 Sendout Not Detected
== END ==
PROVIDERS: Family Provider Internal Medicine; PCP Internal Medicine; Visit Provider Physician Assistant
DX: Z01.812 Encounter for preprocedural laboratory examination (principal); Z11.59 Encounter for screening for other viral diseases
CPT/HCPCS: 87635

== ENCOUNTER 2020-08-17 10:51 | Day surgery (SDC) | payer OTHER, SELFPAY ==
[2020-08-14 09:16] VITALS: BMI 21.8
[2020-08-17] VITALS (11 sets, daily range): BP systolic 106–169; BP diastolic 61–77; PULSE 48–71; RESP 11–20; TEMP 36.3–36.6; O2SAT 97–100; BMI 21.9
--- NOTE | 2020-08-17 11:20 | PM.HP.1 ---
History of Present Illness History of Present Illness Date Patient Seen: 08/17/20 Time Patient Seen: 11:20 Chief complaint: SDC Narrative: Patient is a gentleman here for repair of a left inguinal hernia. He had the right side repaired in the past. He was having some symptoms of localized pain but that seems to have gone away after use of medication as well as the him using a hand-held vibrating machine. Patient History Medical History Enlarged prostate (Acute) Headache, migraine (Acute) Surgical History History of cataract extraction (Acute ~2004) History of nasal polypectomy (Acute ~1959) History of surgery (Acute ~2002) History of tonsillectomy and adenoidectomy (Acute) Hx of cholecystectomy (Acute 1998) Hx of hemorrhoidectomy (Acute 08/2017) Hx of hernia repair (Acute 08/2017) Hx of tooth extraction (Acute) Hx of transurethral resection of prostate (Acute ~2015) Hx of wisdom tooth extraction (Acute ~1979) Family & Social History Family History Father Hypertension Prostate cancer Mother Diabetes mellitus Sister Liver cancer Social History: household members spouse Tobacco & Substance use: Smoking Status Never smoker alcohol intake current Substance Use Type does not use Meds Home Medications and Allergies Home Medications Medication Instructions Recorded Confirmed Type sumatriptan succinate [Imitrex] 100 mg PO PRN PRN #0 05/07/12 06/03/20 History tamsulosin [Flomax] 0.4 mg PO QDAY #0 11/16/17 06/03/20 History doxycycline monohydrate 40 mg 40 mg PO .qod each 06/03/20 06/03/20 History capsule,immediate - delay release flaxseed oil 1,000 mg capsule 1,000 mg PO DAILY 06/03/20 06/03/20 History Allergies Allergy/AdvReac Type Severity Reaction Status Date / Time No Known Allergies Allergy Verified 08/17/20 11:14 Review of Systems Review of Systems ROS: Yes All systems reviewed with the patient and are negative except as otherwise documented Exam Narrative Exam Narrative: Pleasant cooperative patient no apparent distress. Lungs are clear to auscultation. No rales or rhonchi. Heart regular rate and rhythm no murmur gallop. Abdomen is soft nontender without mass. No obvious ventral hernias. Left inguinal hernia. Reducible. None felt on the right. Patient is alert and oriented x3. Assessment & Plan Assessment & Plan narrative: Patient with a left inguinal hernia for repair. His become symptomatic. I have discussed the procedure with him in the office. Risks detailed there. He has no questions. He understands I will probably use mesh. I discussed with him postop prescriptions. All questions answered and he wishes to proceed.
[2020-08-17] MEDS: LACTATED RINGERS 1,000 ML 42 ML IV (11:38)
[2020-08-17] MEDS: CEFAZOLIN 2 GM/100 ML FROZ.PIGGY IV (11:38)
[2020-08-17] MEDS: BUPIVACAINE 0.5% (PF) VIAL 30 ML INJ (12:27)
--- NOTE | 2020-08-17 13:23 | PM.OP.1 ---
Operative Date/Time/Diagnoses Date of procedure: 08/17/20 Time of procedure: 13:23 Pre-op diagnosis: Left Post-op diagnosis: same (Direct hernia) Procedure & Clinicians Same procedure as scheduled: Yes Operative Notes Closure Type: primary Specimen(s): none sent Prosthetic devices, grafts, tissues, transplants, or devices: Mesh Estimated Blood Loss (mL): 5 Blood products transfused: none Procedure in detail: The patient was placed supine on the operating room table and underwent general LMA anesthesia. He was prepped and draped in the usual fashion. A transverse incision was made overlying the left internal ring and carried down to the level of the external oblique. The external oblique was opened parallel with its fibers through the external ring. The cord structures were elevated. The cremaster was opened proximally and search made for an indirect sac. None was found. The floor was examined and was found to have fat protruding through it adjacent to the internal ring. The very attenuated floor over it was opened and the fat reduced. A medium plug was placed in the defect created by this hernia. Was tacked into place with interrupted 0 Ethibond sutures. The floor was closed over this mesh using a [id number] of 0 Ethibond. Examination revealed that there was a nerve that splayed out giving branches medially and laterally. The mesh I was about to place across the floor would be in direct contact with this in multiple areas as the patient is very little fat. Rather than risk get incorporating into the mesh neelam causing chronic pain I decided to divide the small nerve in incorporate the end under muscle. This was done with a 3 0 Vicryl.. A patch was placed across the floor and tacked at the pubic tubercle, the posterior lamella of the anterior rectus sheath, the ilioinguinal ligament, and superior lateral to the cord. The opening was modified as necessary to prevent tight constriction of the cord. Sutures of 0 Ethibond were used to secure the mesh. The external oblique was closed with a running 3 0 Vicryl. The subcu was closed with interrupted 4 0 Vicryl. The skin was closed with a running 4 0 Vicryl subcuticular stitch and Steri-Strips. Dressing was applied, the patient was awakened, and the patient was taken to the recovery area in good condition. Complications: none Post-operative Condition: stable Disposition: PACU
[2020-08-17] MEDS: fentaNYL 100 MCG/2 ML INJ IV ×2 (13:33→13:44)
[2020-08-17] MEDS: OXYCODONE IR 5 MG TABLET PO ×2 (13:55→14:31)
[2020-08-17] MEDS: ONDANSETRON 4 MG/2 ML INJ IV (13:56)
== END 2020-08-17 14:50 | disposition home or self-care (01) ==
PROVIDERS: Family Provider Internal Medicine; PCP Internal Medicine; Referring Provider Internal Medicine; Visit Provider Specialist
PROC: (CPT 49505; principal; 2020-08-17 12:15)
DX: K40.90 Unilateral inguinal hernia, without obstruction or gangrene, not specified as recurrent (principal); N40.0 Benign prostatic hyperplasia without lower urinary tract symptoms; G43.909 Migraine, unspecified, not intractable, without status migrainosus
CPT/HCPCS: 49505; C1781; J0690; J1100; J2250; J2405; J2704; J3010

== ENCOUNTER → 2020-08-20 01:17 | Outpatient (CLI) | payer OTHER, SELFPAY | PROVIDERS: Family Provider Internal Medicine; PCP Internal Medicine; Referring Provider Internal Medicine; Visit Provider Internal Medicine | DX: Z23 Encounter for immunization (principal) | CPT/HCPCS: 90471; 90662 ==

== ENCOUNTER → 2020-09-16 14:46 | Outpatient (CLI) | payer OTHER, SELFPAY | PROVIDERS: Family Provider Internal Medicine; PCP Internal Medicine; Referring Provider Urology; Visit Provider Urology | DX: Z12.5 Encounter for screening for malignant neoplasm of prostate (principal) | CPT/HCPCS: 36415; 84153 ==

== ENCOUNTER → 2020-11-20 11:02 | Outpatient (CLI) | payer OTHER, SELFPAY ==
[2020-11-20] MEDS: COVID-19 VACC(MODERNA-1)/PF 100 MCG/0.5 ML VIAL IM (11:05)
== END ==
PROVIDERS: Family Provider Internal Medicine; PCP Internal Medicine; Visit Provider Internal Medicine
DX: Z23 Encounter for immunization (principal)
CPT/HCPCS: 0011A; 91301

== ENCOUNTER → 2020-12-18 11:00 | Outpatient (CLI) | payer OTHER, SELFPAY ==
[2020-12-18] MEDS: COVID-19 VACC #2, MRNA(MOD) 100 MCG/0.5 ML VIAL IM (11:07)
== END ==
PROVIDERS: Family Provider Internal Medicine; PCP Internal Medicine; Visit Provider Internal Medicine
DX: Z23 Encounter for immunization (principal)
CPT/HCPCS: 0012A; 91301

== ENCOUNTER → 2021-08-12 | Outpatient (CLI) | payer OTHER, SELFPAY | PROVIDERS: Family Provider Internal Medicine; PCP Internal Medicine; Referring Provider Internal Medicine; Visit Provider Internal Medicine | DX: Z23 Encounter for immunization (principal) | CPT/HCPCS: 90471; 90686 ==

== ENCOUNTER → 2021-09-08 13:23 | Outpatient (CLI) | payer OTHER, SELFPAY ==
[2021-09-08 14:28] LABS: Prostate Specific Antigen 1.97 ng/mL (0.10-4.00)
== END ==
PROVIDERS: Family Provider Internal Medicine; PCP Internal Medicine; Referring Provider Urology; Visit Provider Urology
DX: Z12.5 Encounter for screening for malignant neoplasm of prostate (principal)
CPT/HCPCS: 36415; 84153

== ENCOUNTER 2022-02-25 11:08 | Emergency (ER) | payer OTHER, SELFPAY ==
[2022-02-25] VITALS (9 sets, daily range): BP systolic 147–187; BP diastolic 71–102; PULSE 68–93; RESP 13–22; TEMP 37.2; O2SAT 99–100; BMI 22.3
--- NOTE | 2022-02-25 11:11 | DI.RAD.S_ITS ---
PROCEDURE: XR CHEST 1V INDICATIONS: chest pain TECHNIQUE: One view of the chest was acquired. COMPARISON: [facility], , CHEST 2 VIEW, 07/17/2014, 16:07. FINDINGS: Surgical changes and devices: None. Lungs and pleura: No consolidation, pleural effusions or pneumothorax. Mediastinum: Tortuous aorta. The cardiac silhouette is upper limits of normal. Bones and chest wall: No suspicious bony lesions. Overlying soft tissues appear unremarkable. IMPRESSION: No acute cardiopulmonary abnormality. Dictated by: Denny Lobo M.D. on 02/25/2022 at 11:56 Approved by: Denny Lobo M.D. on 02/25/2022 at 11:57
[2022-02-25 11:37] LABS: Add Manual Diff / Slide Review NO; Basophils Absolute Auto 0 /uL (0-100); Basophils Percent Auto 0.5 % (0-2); Eosinophils Absolute Auto 0 /uL (0-450); Eosinophils Percent Auto 0.2 % (2-4); Hematocrit 33.6 % (41-53); Hemoglobin 11.3 g/dL (13.5-17.5); Lymphocytes Absolute Auto 700 /uL (1100-4500); Lymphocytes Percent Auto 9.8 % (25-40); Mean Corpuscular HGB Conc 33.6 % (30-36); Mean Corpuscular Volume 89.5 fL (80-100); Monocytes Absolute Auto 600 /uL (0-900); Monocytes Percent Auto 8.1 % (3-14); Neutrophils Absolute Auto 5900 /uL (1500-7000); Neutrophils Percent Auto 81.4 % (50-75); Platelet Count 290 X10^3/uL (150-400); Red Blood Cell Count 3.75 X10^6/uL (4.5-5.9); Red Cell Distribution Width 15.1 % (11.6-14.8); White Blood Cell Count 7.3 X10^3/uL (4.5-11.0)
[2022-02-25 11:39] LABS: Prothrombin Time 11.2 SECONDS (10.1-12.7)
[2022-02-25 11:42] LABS: PTT Partial Thromboplastin Tim 28 SECONDS (26.4-36.2)
[2022-02-25 11:44] LABS: Alanine Aminotransferase 18 IU/L (<50); Albumin 4.6 g/dL (3.5-5.0); Albumin Globulin Ratio 1.8 (1.0-2.8); Alkaline Phosphatase 44 U/L (38-126); Aspartate Aminotransferase 30 IU/L (17-59); Bilirubin Total 0.8 mg/dL (0.2-1.3); Blood Urea Nitrogen 21 mg/dL (9-20); Calcium 9.5 mg/dL (8.4-10.2); Carbon Dioxide 27 mmol/L (22-32); Chloride 105 mmol/L (98-107); Creatine Kinase 189 U/L (55-170); Estimated Glomerular Filt Rate > 60 mL/min (>60); Globulin 2.5 g/dL (1.7-4.1); Glucose 104 mg/dL (80-110); HEMOLYSIS < 15 (0-50); Lipase 141 U/L (23-300); Magnesium 1.9 mg/dL (1.6-2.3); Potassium 4.2 mmol/L (3.4-5.1); Sodium 139 mmol/L (137-145); Total Protein 7.1 g/dL (6.3-8.2)
[2022-02-25 11:51] LABS: COVID19 -Nasal RAPID Negative (Negative)
[2022-02-25] MEDS: ASPIRIN 81 MG CHEW TAB 324 MG PO (11:51)
[2022-02-25 11:56] LABS: NT-proBNP (BNP-Adult 18+) 66 pg/mL (<125); Troponin I < 0.012 ng/mL (0.01-0.034)
[2022-02-25 11:59] LABS: CKMB % Relative Index 1.2 % (1.5-5.0); Creatine Kinase MB 2.33 ng/mL (<2.37)
--- NOTE | 2022-02-25 12:50 | ED.CHESTPAIN ---
HPI - Chest Pain <Nicholas Sanchez PA-C - Last Filed: 02/25/22 14:27> General Chief Complaint: Chest Pain Stated Complaint: chest pain when breathing; SOB upon exertion Time Seen by Provider: 02/25/22 12:34 Source: patient Mode of arrival: Family Vehicle Limitations: no limitations History of Present Illness HPI narrative: This is a 71-year-old male presents to the emergency department due to left-sided chest pain and shortness of breath with exertion for the last 3 weeks. Patient states that the symptoms initially began with a fall where he initially noted pain in the right chest which has spread to his left chest. Patient is also primarily concerned that the hills he is to be able to bike up cause him difficulty secondary to the shortness of breath and sensation of leg heaviness. He states that he is usually very active and runs 10-20 miles a week. Denies any chest pain at rest but describes the pain with deep breathing. Denies any nausea, vomiting, headaches, or any other concerning signs or symptoms. Related Data Home Medications Medication Instructions Recorded Confirmed sumatriptan succinate 100 mg 100 mg PO PRN PRN #0 05/07/12 09/01/20 tablet (Imitrex) tamsulosin 0.4 mg capsule (Flomax) 0.4 mg PO QDAY #0 11/16/17 09/01/20 doxycycline monohydrate 40 mg 40 mg PO .qod each 06/03/20 09/01/20 capsule,immediate - delay release (Oracea) flaxseed oil 1,000 mg capsule 1,000 mg PO DAILY 06/03/20 09/01/20 Previous Rx's Medication Instructions Recorded oxycodone-acetaminophen 5 mg-325 1 tab PO Q6H PRN #14 tab 08/17/20 mg tablet (Percocet) amitriptyline 10 mg tablet 20 mg PO BEDTIME #60 tab 09/07/20 Allergies Allergy/AdvReac Type Severity Reaction Status Date / Time No Known Allergies Allergy Verified 02/25/22 11:37 Review of Systems <Nicholas Sanchez PA-C - Last Filed: 02/25/22 14:27> Review of Systems Narrative: See HPI Patient History <Nicholas Sanchez PA-C - Last Filed: 02/25/22 14:27> Medical History (Updated 04/22/22 @ 14:27 by Nicholas Sanchez PA-C) Enlarged prostate Headache, migraine Surgical History History of cataract extraction (~2004) History of nasal polypectomy (~1960) History of surgery (~2002) History of tonsillectomy and adenoidectomy Hx of cholecystectomy (1998) Hx of hemorrhoidectomy (08/2017) Hx of hernia repair (08/2017) Hx of tooth extraction Hx of transurethral resection of prostate (~2015) Hx of wisdom tooth extraction (~1979) Family History Father Hypertension Prostate cancer Mother Diabetes mellitus Sister Liver cancer Social History marital status: household members: spouse Smoking Status: Never smoker alcohol intake: current substance use type: does not use Smoking Status: Never smoker alcohol intake frequency: holidays/special occasions only Substance Use Type: does not use Exam <Nicholas Sanchez PA-C - Last Filed: 02/25/22 14:27> Narrative Exam Narrative: GENERAL: 71 year old patient appears stated age. Well-developed patient, in mild distress. HEAD: Atraumatic. Normocephalic. EYES: Pupils equal round and reactive. Extraocular motions intact. No scleral icterus. No injection or drainage. ENT: Nose without bleeding, purulent drainage. Throat without erythema, tonsillar hypertrophy or exudate. Airway patent. NECK: Trachea midline. Non tender CARDIOVASCULAR: Regular rate and rhythm without murmurs, gallops, or rubs. RESPIRATORY: Clear to auscultation. Breath sounds equal bilaterally. No wheezes, rales, or rhonchi. No tenderness to palpation of the chest wall. GASTROINTESTINAL: Abdomen soft, non-tender, nondistended. EXTREMITIES: No edema or joint tenderness. BACK: Nontender without deformity or crepitance. No flank tenderness. NEURO: AOx3. SKIN: No rash or erythema of visible areas Initial Vital Signs Initial Vital Signs: Vital Signs Pulse Rate 93 H 02/25/22 11:15 Respiratory Rate 22 02/25/22 11:15 Pulse Oximetry 100 02/25/22 11:15 <Sandra Arteaga DO - Last Filed: 02/28/22 12:01> Initial Vital Signs Initial Vital Signs: Vital Signs Pulse Rate 93 H 02/25/22 11:15 Respiratory Rate 22 02/25/22 11:15 Pulse Oximetry 100 02/25/22 11:15 Course <Nicholas Sanchez PA-C - Last Filed: 02/25/22 14:27> Orders Ordered: Discontinued Medications Aspirin (Aspirin 81 Mg Chew Tab) 324 mg PO NOW ONE Stop: 02/25/22 11:12 Last Admin: 02/25/22 11:51 Dose: 324 mg Documented by: RSTONE Nitroglycerin (Nitroglycerin 0.4 Mg Sl Tab) 0.4 mg SL [id number] PRN PRN Reason: Chest Pain Vital Signs Vital signs: Vital Signs - 8 hr 02/25/22 13:30 Pulse Rate 72 Respiratory Rate 13 Blood Pressure 147/75 H Pulse Oximetry 99 <Sandra Arteaga DO - Last Filed: 02/28/22 12:01> Orders Ordered: Discontinued Medications Aspirin (Aspirin 81 Mg Chew Tab) 324 mg PO NOW ONE Stop: 02/25/22 11:12 Last Admin: 02/25/22 11:51 Dose: 324 mg Documented by: RSTONE Nitroglycerin (Nitroglycerin 0.4 Mg Sl Tab) 0.4 mg SL [id number] PRN PRN Reason: Chest Pain Vital Signs Vital signs: Vital Signs - 8 hr 02/25/22 13:30 Pulse Rate 72 Respiratory Rate 13 Blood Pressure 147/75 H Pulse Oximetry 99 MDM - Chest Pain <Nicholas Sanhcez PA-C - Last Filed: 02/25/22 14:27> Lab Data Result diagrams: 02/25/22 11:24 02/25/22 11:24 Labs: Lab Results 02/25/22 02/25/22 02/25/22 Range/Units 11:24 11:24 11:24 WBC 7.3 (4.5-11.0) X10^3/uL RBC 3.75 L (4.5-5.9) X10^6/uL Hgb 11.3 L (13.5-17.5) g/dL Hct 33.6 L (41-53) % MCV 89.5 (80-100) fL MCH 30.0 (26-34) PG MCHC 33.6 (30-36) % RDW 15.1 H (11.6-14.8) % Plt Count 290 (150-400) X10^3/uL Neut % (Auto) 81.4 H (50-75) % Lymph % (Auto) 9.8 L (25-40) % [place] % (Auto) 8.1 (3-14) % Eos % (Auto) 0.2 L (2-4) % Baso % (Auto) 0.5 (0-2) % Neut # (Auto) 5900 (4591-8456) /uL Lymph # (Auto) 700 L (0268-1563) /uL [place] # (Auto) 600 (0-900) /uL Eos # (Auto) 0 (0-450) /uL Baso # (Auto) 0 (0-100) /uL PT 11.2 (10.1-12.7) SECONDS INR 1.0 (0.9-1.3) APTT 28 (26.4-36.2) SECONDS D-Dimer (<230) ng/mL Sodium 139 (137-145) mmol/L Potassium 4.2 (3.4-5.1) mmol/L Chloride 105 (98-107) mmol/L Carbon Dioxide 27 (22-32) mmol/L BUN 21 H (9-20) mg/dL Creatinine 1.00 (0.66-1.25) mg/dL Estimated GFR > 60 (>60) mL/min BUN/Creatinine Ratio 21.0 (6-22) Glucose 104 (80-110) mg/dL Calcium 9.5 (8.4-10.2) mg/dL Magnesium 1.9 (1.6-2.3) mg/dL Total Bilirubin 0.8 (0.2-1.3) mg/dL AST 30 (17-59) IU/L ALT 18 (<50) IU/L Alkaline Phosphatase 44 (38-126) U/L Total Creatine Kinase 189 H (55-170) U/L CK-MB (CK-2) 2.33 (<2.37) ng/mL CK-MB (CK-2) Rel Index 1.2 L (1.5-5.0) % Troponin I < 0.012 (0.01-0.034) ng/mL NT-Pro-B Natriuret Pep 66 (<125) pg/mL Total Protein 7.1 (6.3-8.2) g/dL Albumin 4.6 (3.5-5.0) g/dL Globulin 2.5 (1.7-4.1) g/dL Albumin/Globulin Ratio 1.8 (1.0-2.8) Lipase 141 (23-300) U/L SARS-CoV-2 (PCR) (Negative) 02/25/22 02/25/22 02/25/22 Range/Units 11:24 11:30 13:35 WBC (4.5-11.0) X10^3/uL RBC (4.5-5.9) X10^6/uL Hgb (13.5-17.5) g/dL Hct (41-53) % MCV (80-100) fL MCH (26-34) PG MCHC (30-36) % RDW (11.6-14.8) % Plt Count (150-400) X10^3/uL Neut % (Auto) (50-75) % Lymph % (Auto) (25-40) % [place] % (Auto) (3-14) % Eos % (Auto) (2-4) % Baso % (Auto) (0-2) % Neut # (Auto) (2608-9130) /uL Lymph # (Auto) (2932-5150) /uL [place] # (Auto) (0-900) /uL Eos # (Auto) (0-450) /uL Baso # (Auto) (0-100) /uL PT (10.1-12.7) SECONDS INR (0.9-1.3) APTT (26.4-36.2) SECONDS D-Dimer < 200 (<230) ng/mL Sodium (137-145) mmol/L Potassium (3.4-5.1) mmol/L Chloride (98-107) mmol/L Carbon Dioxide (22-32) mmol/L BUN (9-20) mg/dL Creatinine (0.66-1.25) mg/dL Estimated GFR (>60) mL/min BUN/Creatinine Ratio (6-22) Glucose (80-110) mg/dL Calcium (8.4-10.2) mg/dL Magnesium (1.6-2.3) mg/dL Total Bilirubin (0.2-1.3) mg/dL AST (17-59) IU/L ALT (<50) IU/L Alkaline Phosphatase (38-126) U/L Total Creatine Kinase (55-170) U/L CK-MB (CK-2) (<2.37) ng/mL CK-MB (CK-2) Rel Index (1.5-5.0) % Troponin I 0.031 (0.01-0.034) ng/mL NT-Pro-B Natriuret Pep (<125) pg/mL Total Protein (6.3-8.2) g/dL Albumin (3.5-5.0) g/dL Globulin (1.7-4.1) g/dL Albumin/Globulin Ratio (1.0-2.8) Lipase (23-300) U/L SARS-CoV-2 (PCR) Negative (Negative) Imaging Data Chest x-ray: Radiologist's Impression: [address] [address] XRay Report Signed Patient: Rodrigo Ortega MR#: [id number] : 1950 Acct:[id number] Age/Sex: 71 / M Date of Service: 02/25/22 Loc: ED Accession Number: [id number] ?? Procedure: XR chest 1V Ordering Provider: Sandra Arteaga D.O. PROCEDURE:? XR CHEST 1V ? INDICATIONS:? chest pain ? TECHNIQUE:? One view of the chest was acquired.? ? COMPARISON:? [facility], , CHEST 2 VIEW, 07/17/2014, 16:07. ? FINDINGS:? ? Surgical changes and devices:? None.? ? Lungs and pleura:? No consolidation, pleural effusions or pneumothorax.? ? Mediastinum:? Tortuous aorta.? The cardiac silhouette is upper limits of normal.? ? Bones and chest wall:? No suspicious bony lesions.? Overlying soft tissues appear unremarkable.? ? IMPRESSION:? No acute cardiopulmonary abnormality. ? ? Dictated by: Denny Lobo M.D. on 02/25/2022 at 11:56 ? ? Approved by: Denny Lobo M.D. on 02/25/2022 at 11:57 ? ECG Data Interpretation: 1119: Normal sinus rhythm at a rate of 79 beats per minute. No ST elevation or T-wave abnormalities. On comparison to EKG from 07/17/2014 no acute changes. 1335: Normal sinus rhythm at a rate of 64 beats per minute. No acute changes since prior EKG. [facility] Narrative Medical decision making narrative: This is a otherwise healthy 71-year-old male presents to the emergency department due to pleuritic chest pain and increased shortness of breath with exertion for the last couple of weeks. Chest x-ray showed no evidence of any kind of lung injury or rib fracture. Suspect the pleuritic chest pain as possible costochondritis secondary to a fall he recently had. EKG and troponins were ordered which show no evidence of ACS. D-dimer negative. All other lab work unremarkable other than anemia which I recommended the patient follow-up with his primary care provider for further workup as he is not experiencing any acute bleeding. Suspect anemia may be a possible cause of the increased shortness of breath. BNP within normal limits and low suspicion for congestive heart failure as cause of symptoms. No neurologic findings. <Sandra Arteaga, DO - Last Filed: 02/28/22 12:01> Lab Data Labs: Lab Results 02/25/22 02/25/22 02/25/22 Range/Units 11:24 11:24 11:24 WBC 7.3 (4.5-11.0) X10^3/uL RBC 3.75 L (4.5-5.9) X10^6/uL Hgb 11.3 L (13.5-17.5) g/dL Hct 33.6 L (41-53) % MCV 89.5 (80-100) fL MCH 30.0 (26-34) PG MCHC 33.6 (30-36) % RDW 15.1 H (11.6-14.8) % Plt Count 290 (150-400) X10^3/uL Neut % (Auto) 81.4 H (50-75) % Lymph % (Auto) 9.8 L (25-40) % [place] % (Auto) 8.1 (3-14) % Eos % (Auto) 0.2 L (2-4) % Baso % (Auto) 0.5 (0-2) % Neut # (Auto) 5900 (1241-1402) /uL Lymph # (Auto) 700 L (5676-1931) /uL [place] # (Auto) 600 (0-900) /uL Eos # (Auto) 0 (0-450) /uL Baso # (Auto) 0 (0-100) /uL PT 11.2 (10.1-12.7) SECONDS INR 1.0 (0.9-1.3) APTT 28 (26.4-36.2) SECONDS D-Dimer (<230) ng/mL Sodium 139 (137-145) mmol/L Potassium 4.2 (3.4-5.1) mmol/L Chloride 105 (98-107) mmol/L Carbon Dioxide 27 (22-32) mmol/L BUN 21 H (9-20) mg/dL Creatinine 1.00 (0.66-1.25) mg/dL Estimated GFR > 60 (>60) mL/min BUN/Creatinine Ratio 21.0 (6-22) Glucose 104 (80-110) mg/dL Calcium 9.5 (8.4-10.2) mg/dL Magnesium 1.9 (1.6-2.3) mg/dL Total Bilirubin 0.8 (0.2-1.3) mg/dL AST 30 (17-59) IU/L ALT 18 (<50) IU/L Alkaline Phosphatase 44 (38-126) U/L Total Creatine Kinase 189 H (55-170) U/L CK-MB (CK-2) 2.33 (<2.37) ng/mL CK-MB (CK-2) Rel Index 1.2 L (1.5-5.0) % Troponin I < 0.012 (0.01-0.034) ng/mL NT-Pro-B Natriuret Pep 66 (<125) pg/mL Total Protein 7.1 (6.3-8.2) g/dL Albumin 4.6 (3.5-5.0) g/dL Globulin 2.5 (1.7-4.1) g/dL Albumin/Globulin Ratio 1.8 (1.0-2.8) Lipase 141 (23-300) U/L SARS-CoV-2 (PCR) (Negative) 02/25/22 02/25/22 02/25/22 Range/Units 11:24 11:30 13:35 WBC (4.5-11.0) X10^3/uL RBC (4.5-5.9) X10^6/uL Hgb (13.5-17.5) g/dL Hct (41-53) % MCV (80-100) fL MCH (26-34) PG MCHC (30-36) % RDW (11.6-14.8) % Plt Count (150-400) X10^3/uL Neut % (Auto) (50-75) % Lymph % (Auto) (25-40) % [place] % (Auto) (3-14) % Eos % (Auto) (2-4) % Baso % (Auto) (0-2) % Neut # (Auto) (5000-9060) /uL Lymph # (Auto) (3593-7632) /uL [place] # (Auto) (0-900) /uL Eos # (Auto) (0-450) /uL Baso # (Auto) (0-100) /uL PT (10.1-12.7) SECONDS INR (0.9-1.3) APTT (26.4-36.2) SECONDS D-Dimer < 200 (<230) ng/mL Sodium (137-145) mmol/L Potassium (3.4-5.1) mmol/L Chloride (98-107) mmol/L Carbon Dioxide (22-32) mmol/L BUN (9-20) mg/dL Creatinine (0.66-1.25) mg/dL Estimated GFR (>60) mL/min BUN/Creatinine Ratio (6-22) Glucose (80-110) mg/dL Calcium (8.4-10.2) mg/dL Magnesium (1.6-2.3) mg/dL Total Bilirubin (0.2-1.3) mg/dL AST (17-59) IU/L ALT (<50) IU/L Alkaline Phosphatase (38-126) U/L Total Creatine Kinase (55-170) U/L CK-MB (CK-2) (<2.37) ng/mL CK-MB (CK-2) Rel Index (1.5-5.0) % Troponin I 0.031 (0.01-0.034) ng/mL NT-Pro-B Natriuret Pep (<125) pg/mL Total Protein (6.3-8.2) g/dL Albumin (3.5-5.0) g/dL Globulin (1.7-4.1) g/dL Albumin/Globulin Ratio (1.0-2.8) Lipase (23-300) U/L SARS-CoV-2 (PCR) Negative (Negative) ECG Data Interpretation: 1119: Normal sinus rhythm at a rate of 79 beats per minute. No ST elevation or T-wave abnormalities. On comparison to EKG from 07/17/2014 no acute changes. 1335: Normal sinus rhythm at a rate of 64 beats per minute. No acute changes since prior EKG. EKG 1. Sinus rhythm with sinus arrhythmia.? Rate of 79 CO 158 QRS 82 and QTC 421.? No acute ST changes appreciated patient has prior from 07/17/2014 which appears similar. EKG 2. Sinus rhythm, rate of 60 4p are 168 QRS is [address] QTC [address]. No acute ST changes. She or flattened T-wave in 3 but not appreciated in other leads. Discharge Plan Departure Patient Disposition: Home Clinical Impression: Acute costochondritis, Anemia Activity Restrictions/Additional Instructions: The you for coming into the [facility] Emergency Department today. As we discussed the chest x-ray shows no evidence of any kind of lung injury, pneumonia, or rib injury. I suspect the pain you are experiencing is something costochondritis. Please read the attached information for more information about this. The lab work and EKG showed no evidence of any kind of heart attack. The blood work showed no evidence of any kind of blood clot in your lung. The lab work did show mild anemia with your primary care provider will be able to further workup the exact cause of for you. This time I recommended [id number] iron and B12 supplement as these are both possible causes of anemia. I hope you feel better soon. Prescriptions: No Action sumatriptan succinate [Imitrex] 100 MG tablet 100 mg PO PRN PRN (Reason: Headache) Qty: 0 0RF tamsulosin [Flomax] 0.4 MG capsule,extended release 24hr 0.4 mg PO QDAY Qty: 0 0RF amitriptyline 10 mg tablet 20 mg PO BEDTIME Qty: 60 0RF flaxseed oil 1,000 mg capsule 1,000 mg PO DAILY 0RF Rx Instructions: administer with a meal doxycycline monohydrate [Oracea] 40 mg capsule,IR - delay rel,biphase 40 mg PO .qod 0RF oxycodone-acetaminophen [Percocet] 5-325 mg tablet 1 tab PO Q6H PRN (Reason: painful procedure) Qty: 14 0RF Referrals: Edgar Arambula MD [Primary Care Provider] - <Sandra Arteaga DO - Last Filed: 02/28/22 12:01> Cosign ED Attending Cosignature Attestation: I was immediately available in the department for consultation. Documentation has been reviewed.
[2022-02-25 13:13] LABS: D Dimer < 200 ng/mL (<230)
[2022-02-25 14:06] LABS: Troponin I 0.031 ng/mL (0.01-0.034)
== END 2022-02-25 14:33 | disposition home or self-care (01) ==
PROVIDERS: Emergency Medicine; Emergency Provider Physician Assistant Medical; Family Provider Internal Medicine; PCP Internal Medicine
DX: M94.0 Chondrocostal junction syndrome [Tietze] (principal); D64.9 Anemia, unspecified; Z20.822 Contact with and (suspected) exposure to COVID-19
CPT/HCPCS: 36415; 71045; 80053; 82550; 82553; 83690; 83735; 83880; 84484; 85025; 85379; 85610; 85730; 87635; 93005; 99284; C9803

== ENCOUNTER → 2022-03-09 13:34 | Outpatient (CLI) | payer OTHER, SELFPAY ==
[2022-03-09 14:23] LABS: Add Manual Diff / Slide Review NO; Basophils Absolute Auto 0 /uL (0-100); Basophils Percent Auto 0.9 % (0-2); Eosinophils Absolute Auto 0 /uL (0-450); Hematocrit 33.7 % (41-53); Hemoglobin 11.3 g/dL (13.5-17.5); Lymphocytes Absolute Auto 1100 /uL (1100-4500); Lymphocytes Percent Auto 21.9 % (25-40); Mean Corpuscular HGB Conc 33.6 % (30-36); Mean Corpuscular Hemoglobin 30.3 PG (26-34); Monocytes Absolute Auto 700 /uL (0-900); Monocytes Percent Auto 13.1 % (3-14); Neutrophils Absolute Auto 3200 /uL (1500-7000); Neutrophils Percent Auto 63.1 % (50-75); Platelet Count 249 X10^3/uL (150-400); Red Blood Cell Count 3.74 X10^6/uL (4.5-5.9); Red Cell Distribution Width 15.8 % (11.6-14.8)
[2022-03-09 14:24] LABS: Reticulocyte Count, Percent 2.6 % (0.9-2.6)
[2022-03-09 14:35] LABS: HEMOLYSIS < 15 (0-50); Iron 87 ug/dL (49-181)
[2022-03-09 14:38] LABS: Cholesterol 202 mg/dL (140-199); HDL Cholesterol 98 mg/dL (40-60); LDL Cholesterol Calculated 86 mg/dL (<100); Triglycerides 91 mg/dL (35-150)
[2022-03-09 14:47] LABS: Percent Iron Saturation 23 % (20-50); Total Iron Binding Capacity 378 ug/dL (261-462); Transferrin 298 mg/dL (206-381)
[2022-03-09 15:12] LABS: Ferritin 15 ng/mL (18-464)
[2022-03-09 15:27] LABS: Vitamin B12 > 1000 pg/mL (239-931)
== END ==
PROVIDERS: Family Provider Internal Medicine; PCP Internal Medicine; Referring Provider Internal Medicine; Visit Provider Internal Medicine
DX: D64.9 Anemia, unspecified (principal); E53.8 Deficiency of other specified B group vitamins; E78.2 Mixed hyperlipidemia
CPT/HCPCS: 36415; 80061; 82607; 82728; 83540; 83550; 85025; 85045

== ENCOUNTER → 2022-03-17 11:11 | Outpatient (CLI) | payer OTHER, SELFPAY | PROVIDERS: Family Provider Internal Medicine; PCP Internal Medicine; Visit Provider Physician Assistant | DX: N34.3 Urethral syndrome, unspecified (principal) | CPT/HCPCS: 87077; 87086; 87186 ==

== ENCOUNTER → 2022-03-18 15:55 | Outpatient (CLI) | payer OTHER, SELFPAY ==
[2022-03-18 17:15] LABS: COVID19 -Nasal RAPID Negative (Negative)
== END ==
PROVIDERS: Family Provider Internal Medicine; PCP Internal Medicine; Visit Provider Surgery
DX: Z01.812 Encounter for preprocedural laboratory examination (principal); Z20.822 Contact with and (suspected) exposure to COVID-19
CPT/HCPCS: 87635; C9803

== ENCOUNTER 2022-03-21 06:45 | Day surgery (SDC) | payer OTHER, SELFPAY ==
[2022-03-21] VITALS (7 sets, daily range): BP systolic 108–142; BP diastolic 53–85; PULSE 62–70; RESP 12–20; TEMP 36.6–37.1; O2SAT 94–98; BMI 22.3
--- NOTE | 2022-03-21 | PATH_ITS ---
[facility] Accession Number: [id number] . 01 Material submitted: . PART A: duodenum - DUODENUM BIOPSY PART B: body - PAPILLA BIOPSY PART C: gastrointestinal site - ANTRUM BIOPSY PART D: esophagus, E-G Junction - GE JUNCTION BIOPSY . 02 Diagnosis: A. Duodenum, Biopsy: Ulcerated duodenal mucosa. Negative for intraepithelial lymphocytosis. Negative for dysplasia and malignancy. . B. Papilla, Biopsy: Small bowel mucosa with gastric surface foveolar metaplasia and prominent Zhanna's glands. Negative for intraepithelial lymphocytosis. Negative for dysplasia and malignancy. . C. Stomach, Antrum, Biopsy: Acute erosive gastritis with reactive gastropathy. Negative for Helicobacter by immunohistochemistry. Negative for intestinal metaplasia. Negative for dysplasia and malignancy. . D. Gastroesophageal Junction, Biopsy: Squamocolumnar junctional mucosa with specialized intestinal metaplasia, consistent with Shah's esophagus. Negative for dysplasia and malignancy. [facility] 03/24/2022 1144 Local . 02 Electronically signed: . Alisa De La Rosa MD, Pathologist NPI- [id number] . 01 Gross description: . Part A: DUODENUM BIOPSY: Received in formalin are 4 fragment(s) of frias, soft tissue measuring 0.3 x 0.2 x 0.1 cm to 0.2 x 0.2 x 0.1 cm submitted entirely in 1 cassette(s) Part B: PAPILLA BIOPSY: Received in formalin is 1 fragment(s) of frias, soft tissue measuring 0.1 x 0.1 x 0.1 cm submitted entirely in 1 cassette(s) Part C: ANTRUM BIOPSY: Received in formalin are multiple fragment(s) of frias, soft tissue measuring 1.3 x 0.4 x 0.1 cm in aggregate submitted entirely in 1 cassette(s) Part D: GE JUNCTION BIOPSY: Received in formalin are minute fragment(s) of frias, soft tissue measuring 0.3 x 0.2 x 0.1 cm in aggregate submitted entirely in 1 cassette(s) /CPE 03/22/2022 0308 Local . 02 Microscopic: . C. An immunohistochemical stain was performed to evaluate for Helicobacter organisms and is negative. The control stain showed appropriate reactivity. . D. An alcian blue stain was performed to evaluate for intestinal metaplasia and is positive. The control stain showed appropriate reactivity. . * This test was developed and its performance characteristics determined by [employer]. It has not been cleared or approved by the U.S. Food and Drug Administration. The FDA has determined that such clearance or approval is not necessary. This test is used for clinical purposes. It should not be regarded as investigational or for research. . 02 Pathologist provided ICD-10: D64.9, K22.70 . 02 CPT . 479217, 664137, 156652, 432567, 932191, A38264 Specimen Comment: A courtesy copy of this report has been sent to [phone] Performed at: 01 [facility] [address] [place] [address], [place], [place] [id number] MD Fab Llanes MD Phone: [phone] Performed at: 02 [facility] [place] [address] [place], [place] [id number] MD Alisa De La Rosa MD Phone: [phone]
[2022-03-21] MEDS: LACTATED RINGERS 1,000 ML 84 ML IV (07:20)
--- NOTE | 2022-03-21 07:53 | PM.PREOP ---
Pre-operative Note COVID-19 COVID-19 status: Negative Result date/Date tested (Pos, Neg/Pending): 03/18/22 Interval Note History & Physical reviewed/Exam performed by Physician: Yes Changes to H&P: No ASA Class (for procedural sedation): II
[2022-03-21] MEDS: LIDOCAINE 4% SOLN 50 ML 20 ML TOP (08:03)
[2022-03-21] MEDS: MIDAZOLAM 5 MG/5 ML VIAL 8 MG IV (08:33)
[2022-03-21] MEDS: fentaNYL 250 MCG/5 ML INJ 175 MCG IV (08:36)
--- NOTE | 2022-03-21 08:51 | PM.OP.EC ---
Operative Date/Time/Diagnoses Date of procedure: 03/21/22 Time of procedure: 08:51 Pre-op diagnosis: Anemia Post-op diagnosis: same Procedure & Clinicians Study performed: Esophagogastroduodenoscopy and colonoscopy Same procedure as scheduled: Yes Surgeon: Aniket Gómez Procedure Notes Procedure in detail: Procedure in detail: A timeout was performed. Bite blocked was placed. Patient was positioned in a left lateral decubitus position. Sedation was administered with Versed fentanyl. Once the patient was sedated the endoscope was inserted through the bite block and passed through the esophagus and stomach and into the duodenum. There was some moderately prominent mucosa in the duodenum here the papilla. Is difficult to fully visualize the area due to the location on the inner curvature of the duodenum however the biopsy was able to be taken with cold forceps from this mucosa and labeled as ?papilla?. Random biopsies were also taken from the rest of the duodenum. The scope was withdrawn into the duodenal bulb and no abnormalities were noted. The scope was then withdrawn into the stomach. There was moderate antritis with old blood in the stomach. There were some small shallow ulcers the antrum with no active bleeding. The rest of the stomach was normal. The scope was retroflexed and no hiatal hernia was noted. Scope was withdrawn into the esophagus and some mild distal esophagitis was noted and random biopsies were taken from this mucosa just around the Z-line. EGD findings: Prominent mucosa near the papilla, moderate antritis and a few small shallow antral ulcers with evidence of old blood in the stomach. Next we repositioned the patient for a colonoscopy. A digital rectal exam was performed and was normal other than a mildly prominent prostate. The colonoscope was inserted and advanced to the cecum. The appendiceal orifice was identified and photographed. The terminal ileum was intubated and the mucosa appeared normal. The scope was slowly withdrawn over greater than 8 minutes. No other abnormalities were noted. The scope was retroflexed in the rectum. There were moderate internal hemorrhoids but no other abnormalities were noted. Colonoscopy findings: Normal colon, mild to moderate internal hemorrhoids with no active bleeding EBL: 10 mL Scope withdrawal time: 9 Sedation minutes: 42 Post-procedure Recommendations: Colonscopy in 10 years and Will call with biopsy results Disposition: PACU
--- NOTE | 2022-03-21 09:35 | SUR.PHASEII ---
0930-in phase 2 awaiting to do labs priior to discharge home.
--- NOTE | 2022-03-21 09:46 | SUR.PHASEII ---
Called lab to verify tube nneded for gastrin level, was told gold or red, then instructed to use red. Blood drawn, and pt discharged.
[2022-03-24 12:49] LABS: Gastrin 33 pg/mL (0-115)
== END 2022-03-21 09:53 | disposition home or self-care (01) ==
PROVIDERS: Family Provider Internal Medicine; PCP Internal Medicine; Referring Provider Surgery; Visit Provider Surgery
PROC: 0DJ08ZZ Inspection of Upper Intestinal Tract, Via Natural or Artificial Opening Endoscopic (ICD-10-PCS; CPT 43235; principal; 2022-03-21 07:45)
PROC: 0DJD8ZZ Inspection of Lower Intestinal Tract, Via Natural or Artificial Opening Endoscopic (ICD-10-PCS; CPT 45378; 2022-03-21 07:45)
DX: D64.9 Anemia, unspecified (principal); K29.60 Other gastritis without bleeding; K22.70 Barrett's esophagus without dysplasia; K25.9 Gastric ulcer, unspecified as acute or chronic, without hemorrhage or perforation; K64.8 Other hemorrhoids; K26.9 Duodenal ulcer, unspecified as acute or chronic, without hemorrhage or perforation; K31.9 Disease of stomach and duodenum, unspecified
CPT/HCPCS: 43239; 45378; 36415; 82941; 99152; 99153; J2250; J3010

== ENCOUNTER → 2022-03-22 12:02 | Outpatient (CLI) | payer OTHER, SELFPAY ==
--- NOTE | 2022-03-22 12:04 | DI.CT.S_ITS ---
PROCEDURE: CT ABDOMEN PELVIS W CON INDICATIONS: Anemia TECHNIQUE: After the administration of oral and intravenous contrast, axial sections were acquired from the lung bases to the pubic symphysis. Coronal and sagittal reformats were performed. For radiation dose reduction, the following was used: automated exposure control, adjustment of mA and/or kV according to patient size. COMPARISON:None. FINDINGS: Image quality: Excellent. Lung bases: Lung bases are clear. Heart size is normal. Solid organs: Liver: The liver has no mass or intrahepatic biliary ductal dilatation. The portal vein and hepatic veins are patent. There are arterially enhancing lesions at the right inferior liver tip measuring 1.5 x 2.0 cm a similar focus of enhancement in the right lobe of the liver in a subcapsular location measures 8 mm, probably hemangiomas. Biliary: Status post cholecystectomy. Pancreas: The pancreas has no mass or ductal dilatation. There is no surrounding inflammation. Spleen: Normal size. There are no masses. Adrenals: No hypertrophy or nodules. Kidneys: No obstructive calculus or hydronephrosis. No solid mass. No cystic mass. Peritoneum and bowel: The distal esophagus is normal. There is food filling the stomach. In the 2nd portion of the duodenum there is a sausage shaped filling defect looped within the duodenum of uncertain etiology, large polyp cannot be excluded. Food matter is also a possibility.. The small bowel has a normal caliber and appearance. The terminal ileum is normal. The large bowel has a normal caliber and appearance. The appendix is normal. No free fluid or air. Nodes and vessels: No retroperitoneal or mesenteric adenopathy by size criteria. Aorta and inferior vena cava are normal in size. Miscellaneous: No abdominal wall mass or hernia. PELVIS: Genitourinary: The bladder has no wall thickening or mass. The bladder is significantly distended, possibly due to urine outlet obstruction. The prostate is enlarged measuring 5.4 x 3.6 cm. Bones: Degenerative changes with no focal abnormality. No vertebral body compression fractures. There is a benign-appearing bone island T11 and adjacent to the right sacroiliac joint. IMPRESSION: 1. No acute abnormality of the abdomen or pelvis. 2. Possible large polyp or food matter in the 2nd portion of the duodenum as described above. Recommend upper GI or endoscopy. 3. Arterially enhancing masses in the right lobe of the liver are probably hemangiomas, recommend three-phase liver CT. 4. Significantly distended bladder with a large prostate, consider prostate outlet obstruction. Dictated by: Garrett Dougherty M.D. on 03/22/2022 at 14:15 Approved by: Garrett Dougherty M.D. on 03/22/2022 at 14:25
[2022-03-24 14:11] LABS: Interpretation Negative (Negative)
== END ==
PROVIDERS: Family Provider Internal Medicine; PCP Internal Medicine; Referring Provider Surgery; Visit Provider Surgery
DX: D64.9 Anemia, unspecified (principal); N32.89 Other specified disorders of bladder; N40.0 Benign prostatic hyperplasia without lower urinary tract symptoms; R16.0 Hepatomegaly, not elsewhere classified
CPT/HCPCS: 74177; 83013

== ENCOUNTER → 2022-03-30 14:02 | Outpatient (CLI) | payer OTHER, SELFPAY ==
--- NOTE | 2022-03-30 14:02 | DI.MRI.S_ITS ---
PROCEDURE: MR ABDOMEN WO/W CON INDICATIONS: Liver and duodenal lesions TECHNIQUE: Coronal HASTE, axial 2D FLASH in- and [id number]; axial breath-hold T2 FSE. Dynamic axial VIBE during the administration of contrast; post-contrast coronal VIBE or 2D FLASH with fat saturation from the hepatic dome to the iliac crests. Optional diffusion weighted imaging and ADC may be performed. COMPARISON: [facility], CT, CT ABDOMEN PELVIS W CON, 03/22/2022, 12:52. FINDINGS: Image quality: Excellent. Lung bases: No basal pleural effusions. Heart size is normal. Solid organs: Inferior tip of the right lobe of the liver lesion with peripheral nodular discontinuous enhancement measuring 2.1 x 1.2 cm, (8/67). This is consistent with a benign hemangioma. There is an arterial hyperenhancing focus in the right lobe of the liver subcapsular measuring 1.2 cm, (8/48) which is most consistent with a flash filling hemangioma. Gallbladder is absent. Biliary system is non dilated. Pancreas is normal in morphology. No pancreatic ductal dilatation. Spleen is normal in size and enhancement. No adrenal nodules. Both kidneys demonstrate normal size and enhancement, without hydronephrosis. Nodes and vessels: No retroperitoneal or mesenteric adenopathy by size criteria. Aorta and inferior vena cava are normal in size. Bowel and peritoneum: There is a filling defect in the proximal duodenum measuring approximately 5.1 cm in length, (3/12). This measures 2.8 x 2.1 cm on axial images, (5/21). The abnormality is T2/T1 isointense, without significant enhancement and subtle restricted diffusion. No definite fat signal. This is nonocclusive. This finding at commence is near the gastric pylorus and extends to near the ampulla Vater. No dilated loops of bowel. No free fluid. Bones and soft tissues: No ventral hernias. Bone marrow is normal in overall signal. IMPRESSION: 1. Persistent filling defect in the proximal duodenum. This is most consistent with a polyp, mass, or intraluminal diverticulum. Recommend endoscopic evaluation if not yet performed. 2. Benign hemangioma in the right lobe of the liver measuring 2.1 cm. Additional enhancing focus is most consistent with a flash filling hemangioma. 3. No biliary or pancreatic ductal dilatation. Dictated by: Adryan Harmon M.D. on 03/30/2022 at 15:37 Approved by: Adryan Harmon M.D. on 03/30/2022 at 15:57
== END ==
PROVIDERS: Family Provider Internal Medicine; PCP Internal Medicine; Referring Provider Surgery; Visit Provider Surgery
DX: D64.9 Anemia, unspecified (principal); D18.09 Hemangioma of other sites; K31.9 Disease of stomach and duodenum, unspecified; Z90.49 Acquired absence of other specified parts of digestive tract
CPT/HCPCS: 74183

== ENCOUNTER → 2022-04-22 12:10 | Outpatient (CLI) | payer OTHER, SELFPAY ==
[2022-04-22 12:42] LABS: Hematocrit 39.5 % (41-53); Hemoglobin 13.5 g/dL (13.5-17.5); Mean Corpuscular HGB Conc 34.1 % (30-36); Mean Corpuscular Hemoglobin 30.5 PG (26-34); Mean Corpuscular Volume 89.5 fL (80-100); Platelet Count 181 X10^3/uL (150-400); Red Blood Cell Count 4.42 X10^6/uL (4.5-5.9); Red Cell Distribution Width 16.3 % (11.6-14.8); White Blood Cell Count 4.2 X10^3/uL (4.5-11.0)
[2022-04-22 23:17] LABS: Ferritin 13 ng/mL (18-464)
[2022-04-24 14:44] LABS: HEMOLYSIS < 15 (0-50); Iron 204 ug/dL (49-181)
[2022-04-24 14:56] LABS: Percent Iron Saturation 62 % (20-50); Total Iron Binding Capacity 330 ug/dL (261-462)
[2022-04-24 15:06] LABS: Transferrin 260 mg/dL (206-381)
== END ==
PROVIDERS: Family Provider Internal Medicine; PCP Internal Medicine; Referring Provider Internal Medicine; Visit Provider Internal Medicine
DX: D64.9 Anemia, unspecified (principal)
CPT/HCPCS: 36415; 82728; 83540; 83550; 85027

== ENCOUNTER → 2022-05-23 13:38 | Outpatient (CLI) | payer OTHER, SELFPAY ==
--- NOTE | 2022-05-23 | DI.US.S_ITS ---
PROCEDURE: US RENAL COMPLETE INDICATIONS: Retention of urine, unspecified TECHNIQUE: Real-time scanning was performed of the kidneys and bladder, with image documentation. COMPARISON: [facility], , RENAL COMPLETE, 07/23/2014, 8:59. FINDINGS: Kidneys: Kidneys are normal in size. Right kidney measures 9.8 cm long; left kidney measures 11.3 cm long. Right renal cortical thickness is 1.5 cm; left renal cortical thickness is 1.7 cm. Bilateral renal cortical echotexture is normal. There is mild right hydronephrosis which resolved after voiding. No visible stones in the distal right renal pelvis or distal right ureter. No left-sided hydronephrosis or nephrolithiasis. No suspicious solid mass lesions. Bladder: Pre-void bladder volume is 1213 mL. Post-void residual is 694 mL. Pre-void images demonstrate no intraluminal masses or stones. On pre-void images, bilateral ureteral jets are noted with color Doppler interrogation. (Of note, ureteral jets may not be detectable in up to 25% of cases due to insufficient differences in specific gravity between ureteral and bladder urine). Miscellaneous: No free pelvic fluid. Prostate gland is slightly prominent in size measuring 3.2 x 5.3 x 3.4 cm. IMPRESSION: 1. Mild right hydronephrosis which resolved after voiding. No evidence for urolithiasis on the right side. 2. Normal sonographic appearance of the left kidney. No evidence for obstructive uropathy. 3. Minimal prominence of the prostate gland. 4. Large urinary bladder volume measuring approximately 1200 mL prevoid with large postvoid residual volume of approximately 694 mL. Dictated by: Hever Colon M.D. on 05/23/2022 at 16:23 Approved by: Hever Colon M.D. on 05/23/2022 at 16:28
== END ==
PROVIDERS: Family Provider Internal Medicine; PCP Internal Medicine; Referring Provider Urology; Visit Provider Urology
DX: R33.9 Retention of urine, unspecified (principal); N13.30 Unspecified hydronephrosis
CPT/HCPCS: 76770

== ENCOUNTER → 2022-06-01 13:25 | Outpatient (CLI) | payer OTHER, SELFPAY ==
[2022-06-01 14:20] LABS: BUN Creatinine Ratio 22.1 (6-22); Blood Urea Nitrogen 19 mg/dL (9-20); Calcium 9.3 mg/dL (8.4-10.2); Carbon Dioxide 27 mmol/L (22-32); Chloride 102 mmol/L (98-107); Estimated Glomerular Filt Rate > 60 mL/min (>60); Glucose 96 mg/dL (80-110); HEMOLYSIS < 15 (0-50); Potassium 4.7 mmol/L (3.4-5.1); Sodium 137 mmol/L (137-145)
== END ==
PROVIDERS: Family Provider Internal Medicine; PCP Internal Medicine; Referring Provider Urology; Visit Provider Urology
DX: N13.30 Unspecified hydronephrosis (principal); R33.9 Retention of urine, unspecified
CPT/HCPCS: 36415; 80048

== ENCOUNTER → 2022-07-07 13:35 | Outpatient (CLI) | payer OTHER, SELFPAY ==
[2022-07-07 15:17] LABS: Hematocrit 42.8 % (41-53); Hemoglobin 14.5 g/dL (13.5-17.5); Mean Corpuscular HGB Conc 33.9 % (30-36); Mean Corpuscular Hemoglobin 30.9 PG (26-34); Mean Corpuscular Volume 91.2 fL (80-100); Platelet Count 192 X10^3/uL (150-400); Red Cell Distribution Width 15.7 % (11.6-14.8); White Blood Cell Count 3.9 X10^3/uL (4.5-11.0)
[2022-07-07 15:59] LABS: HEMOLYSIS < 15 (0-50); Iron 165 ug/dL (49-181)
[2022-07-07 16:10] LABS: Percent Iron Saturation 51 % (20-50); Total Iron Binding Capacity 324 ug/dL (261-462); Transferrin 245 mg/dL (206-381)
[2022-07-07 16:38] LABS: Ferritin 28 ng/mL (18-464)
== END ==
PROVIDERS: Family Provider Internal Medicine; PCP Internal Medicine; Referring Provider Internal Medicine; Visit Provider Internal Medicine
DX: D50.0 Iron deficiency anemia secondary to blood loss (chronic) (principal)
CPT/HCPCS: 36415; 82728; 83540; 83550; 85027

== ENCOUNTER → 2022-08-15 13:44 | Outpatient (CLI) | payer OTHER, SELFPAY ==
[2022-08-15 14:17] LABS: COVID19 -Nasal RAPID Negative (Negative)
== END ==
PROVIDERS: Family Provider Internal Medicine; PCP Internal Medicine; Visit Provider Urology
DX: Z20.822 Contact with and (suspected) exposure to COVID-19 (principal)
CPT/HCPCS: 87635

== ENCOUNTER 2022-08-16 09:56 | Day surgery (SDC) | payer OTHER, SELFPAY ==
[2022-08-12 12:40] VITALS: BMI 22.3
[2022-08-16] VITALS (9 sets, daily range): BP systolic 120–165; BP diastolic 70–90; PULSE 47–77; RESP 9–18; TEMP 36.2–36.3; O2SAT 94–100; BMI 22.3
[2022-08-16] MEDS: LACTATED RINGERS 1,000 ML 42 ML IV (10:23)
--- NOTE | 2022-08-16 10:50 | PM.PREOP ---
Pre-operative Note COVID-19 COVID-19 status: Negative Result date/Date tested (Pos, Neg/Pending): 08/15/22 Criteria for continued procedure: Delay expected to result in less-positive ultimate med/surg outcome and Non-surgical alternatives not available or appropriate per current SOC Interval Note History & Physical reviewed/Exam performed by Physician: Yes Changes to H&P: No
[2022-08-16] MEDS: CEFAZOLIN 2 GM/100 ML PREMIX 100 ML IV (11:42)
--- NOTE | 2022-08-16 11:59 | SUR.OPER ---
Lithotomy on padded OR bed, head on pillow, arms secured on padded arm boards at <90 degrees abduction. Legs secured in padded yellow fins stirrups.
[2022-08-16] MEDS: TRIAMCINOLONE 40 MG/ML VIAL 80 MG IM (12:17)
[2022-08-16] MEDS: LIDOCAINE 1% 20 ML INJ (12:19)
--- NOTE | 2022-08-16 12:29 | P.OP_ITS ---
Procedure & Clinicians Procedure: Trans urethral incision of bladder neck with circumferential injection of Kenalog Same procedure as scheduled: Yes Indications: This is a very pleasant 71-year-old male who presented with worsening complaints of lower urinary tract symptoms and outlet obstructive symptoms. Patient has a history of Transurethral resection of prostate. Had cystoscopy he was found to have a bladder neck contracture he presents this time for the above procedure. Surgeon: Nima Joseph Click Yes if Unassisted: Yes Anesthesia Type: General Operative Notes Findings: Urethral meatus and urethra normal to the sphincter which is well coapted. Prostate is resected with a small amount of regrowth. There is a bladder neck contracture just at the bladder neck. Ureteral orifices in normal position with clear efflux bladder exhibits severe trabeculation and cellules no other abnormality no stones. Kenalog 42 cc with 1 cc of lidocaine was injected around the bladder neck scar in 4 aliquots. A 24 Swedish 5 cc Pena catheter was left in place across the bladder neck with 14 cc of sterile water in the balloon. With the bladder full and the scope removed the patient had a vigorous stream. Closure Type: not applicable Specimen(s): none sent Applied: catheter (Twenty-four Swedish [address] catheter 14 cc of sterile water in the balloon.) Estimated Blood Loss (mL): 0 Blood products transfused: none Procedure in detail: Procedure in detail: After informed consent was obtained, the patient was identified and brought to the operating room where he was placed in a supine position on the operative table. Patient then had anesthesia induced and maintained. Ensuring an adequate level of anesthesia the patient was transitioned to the lithotomy position where he was prepped, draped, prepared for Transurethral procedure. After time-out and confirming an adequate level of anesthesia a 21 Swedish cystoscope was passed through the urethra to the level of the bladder neck contracture. Bladder was drained and using the scope and a cystoscopic needle the 3 cc were distributed in 4 aliquots around the bladder neck. The cystoscope was removed and the resectoscope with Yuen knife was inserted and the bladder neck incised at the to 10 and 6 o'clock position. This allowed the bladder neck to spring open and became widely patent scope was then passed into the bladder where cystoscopy was performed and the bladder was drained. With the bladder neck now widely patent the bladder was once again filled and the scope was removed a vigorous stream was observed. A 24 Swedish catheter was passed through the urethra and prostate with the aid of a catheter guide. It was left in the bladder the balloon filled with 14 cc of sterile water. The patient tolerated the procedure well there were no complications and the patient was awakened to be transferred to the postanesthesia care unit to be discharged home with the Pena catheter to follow up my office in approximately 14 days for voiding trial. Complications: none Post-operative Condition: stable Disposition: PACU Plan for aftercare: Discharge home with Pena catheter follow-up my office in approximately 14 days for voiding trial.
[2022-08-16] MEDS: PHENAZOPYRIDINE 100 MG TABLET 200 MG PO (13:01)
[2022-08-16] MEDS: OXYBUTYNIN 5 MG TABLET PO (13:04)
[2022-08-16] MEDS: OXYCODONE IR 5 MG TABLET PO ×2 (13:22→14:03)
== END 2022-08-16 14:00 | disposition home or self-care (01) ==
PROVIDERS: Family Provider Internal Medicine; PCP Internal Medicine; Referring Provider Urology; Visit Provider Urology
PROC: 0TBC8ZZ Excision of Bladder Neck, Via Natural or Artificial Opening Endoscopic (ICD-10-PCS; CPT 52500; principal; 2022-08-16 11:00)
DX: N40.1 Benign prostatic hyperplasia with lower urinary tract symptoms (principal); N32.0 Bladder-neck obstruction; N13.8 Other obstructive and reflux uropathy
CPT/HCPCS: 52276; 82962; J0690; J1100; J2250; J2405; J2704; J3010

== ENCOUNTER → 2022-08-19 14:34 | Outpatient (CLI) | payer OTHER, SELFPAY ==
[2022-08-23 23:08] VITALS: BMI 21.4
== END ==
PROVIDERS: Family Provider Internal Medicine; PCP Internal Medicine; Referring Provider Internal Medicine; Visit Provider Internal Medicine
DX: Z23 Encounter for immunization (principal)
CPT/HCPCS: 90471; 90662

== ENCOUNTER 2022-08-23 20:25 | Inpatient (IN) | payer OTHER, MEDICARE, SELFPAY ==
[2022-08-23] VITALS (8 sets, daily range): BP systolic 100–165; BP diastolic 57–82; PULSE 95–130; RESP 16–30; TEMP 37.4–39.6; O2SAT 94–100; BMI 21.4
--- NOTE | 2022-08-23 20:43 | DI.RAD.S_ITS ---
PROCEDURE: XR CHEST 1V INDICATIONS: suspected sepsis TECHNIQUE: One view of the chest was acquired. COMPARISON: [facility], CR, XR CHEST 1V, 02/25/2022, 11:11. FINDINGS: Surgical changes and devices: None. Lungs and pleura: Lungs are clear. No pleural effusions or pneumothorax. Mediastinum: Mediastinal contours appear normal. Heart size is normal. Bones and chest wall: No suspicious bony lesions. Overlying soft tissues appear unremarkable. IMPRESSION: No acute cardiopulmonary pathology. Dictated by: Ramesh Liang M.D. on 08/23/2022 at 22:12 Approved by: Ramesh Liang M.D. on 08/23/2022 at 22:12
[2022-08-23] MEDS: ACETAMINOPHEN 325 MG TABLET 975 MG PO (20:49)
[2022-08-23] MEDS: SODIUM CHLORIDE 0.9% 1,000 ML 1000 ML IV (20:49)
[2022-08-23 21:19] LABS: Bilirubin Urine UA NEGATIVE (NEGATIVE); Glucose Urine UA NEGATIVE (Negative); Ketones Urine UA NEGATIVE (NEGATIVE); Leukocyte Esterase Urine UA 3+ (NEGATIVE); Nitrite Urine UA POSITIVE (Negative); Occult Blood Urine UA 3+ (Negative); Protein Urine UA 2+ (Negative); Specific Gravity Urine UA 1.015 (1.000-1.035); Urobilinogen Urine UA 0.2 E.U./dL (0.2)
--- NOTE | 2022-08-23 21:22 | ED.SEPSIS ---
HPI - Sepsis General Chief Complaint: Shortness of Breath/Dyspnea Mode of arrival: Ambulatory Source: patient Limitations: no limitations Evaluation Sepsis Screen: Possible Sepsis Risk Sepsis Infection Criteria Present: Suspected New Infection Narrative: 71-year-old male nonsmoker with history of BPH and urologic procedure 1 week ago to help with a stricture at the neck of his bladder here by our Urology team presents with a chief complaint of gradually worsening fever, shaking chills and generalized weakness over the past day or 2. He is not dizzy nor weak or lightheaded. Denies nausea, vomiting or diarrhea. He has no chest pain, shortness of breath or cough. He presents with rigors, fever 103, elevated respiratory rate and heart rate and sepsis protocol was activated Review of Systems Review of Systems Narrative: GENERAL: See HPI HEENT: Denies sinus pain, ear pain, sore throat, difficulty swallowing, dizziness. RESPIRATORY: See HPI CARDIOVASCULAR: Denies chest pain, palpitations, orthopnea, edema, GASTROINTESTINAL: Denies nausea, vomiting, abdominal pain, diarrhea, constipation, melena. : See HPI MUSCULOSKELETAL: denies weakness, joint pain, or bony pain SKIN: Denies rash, skin lesions, or other NEUROLOGIC: Denies weakness, headache, numbness, change in speech, confusion, seizures, incoordination. PSYCHIATRIC: No concerning psychosocial issues. 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 Enlarged prostate Headache, migraine History of colon polyps Right hip pain Urinary retention Surgical History History of cataract extraction (~2004) History of nasal polypectomy (~1959) History of surgery (~2002) History of tonsillectomy and adenoidectomy Hx of cholecystectomy (1998) Hx of cystoscopy Hx of esophagogastroduodenoscopy (03/21/22) Hx of hemorrhoidectomy (08/2017) Hx of hernia repair (08/2017) Hx of left inguinal hernia repair (08/17/20) Hx of tooth extraction Hx of transurethral resection of prostate (~2016) Hx of wisdom tooth extraction (~1979) Family History Father Hypertension Prostate cancer Mother Diabetes mellitus Renal failure Sister Liver cancer Social History marital status: household members: spouse Smoking Status: Never smoker alcohol intake: current substance use type: does not use Smoking Status: Never smoker alcohol intake frequency: a few times a month Substance Use Type: does not use Exam Narrative Exam Narrative: GENERAL: [71] year old patient appears stated age. Well-developed patient, in mild distress. Appears unwell, rigors present HEAD: Atraumatic. Normocephalic. EYES: Pupils equal round and reactive. Extraocular motions intact. No scleral icterus. No injection or drainage. ENT: Nose without bleeding, purulent drainage. Throat without erythema, tonsillar hypertrophy or exudate. Airway patent. NECK: Trachea midline. Non tender CARDIOVASCULAR: Tachycardic but regular rhythm without murmurs, gallops, or rubs. RESPIRATORY: Clear to auscultation. Breath sounds equal bilaterally. No wheezes, rales, or rhonchi. GASTROINTESTINAL: Abdomen soft, non-tender, nondistended. EXTREMITIES: No edema or joint tenderness. BACK: Nontender without deformity or crepitance. No flank tenderness. NEURO: AOx3. SKIN: No rash or erythema of visible areas Initial Vital Signs Initial Vital Signs: Vital Signs Temperature 101 F H 08/23/22 20:31 Pulse Rate 130 H 08/23/22 20:31 Respiratory Rate 30 H 08/23/22 20:31 Blood Pressure 165/82 H 08/23/22 20:31 Pulse Oximetry 100 08/23/22 20:31 Oxygen Delivery Method 08/23/22 20:31 Course Orders Ordered: Acetaminophen (Acetaminophen 325 Mg Tablet) 650 mg PO Q4H PRN PRN Reason: Fever/Mild Pain (1-3) Last Admin: 08/27/22 04:18 Dose: 650 mg Documented By: Admin: 08/26/22 20:03 Dose: 650 mg Documented By: Admin: 08/26/22 07:31 Dose: 650 mg Documented By: Admin: 08/25/22 21:28 Dose: 650 mg Documented By: Admin: 08/25/22 17:48 Dose: 650 mg Documented By: Admin: 08/25/22 08:37 Dose: 650 mg Documented By: Admin: 08/25/22 02:43 Dose: 650 mg Documented By: Admin: 08/24/22 09:07 Dose: 650 mg Documented By: MS Al Hydrox/Mg Hydrox/Simethicone (Mag Hydrox/Alum/Simeth 30 Ml Udc) 30 ml PO Q6HR PRN PRN Reason: Dyspepsia Enoxaparin Sodium (Enoxaparin 40 Mg/0.4 Ml Syringe) 40 mg SUBCUT DAILY [facility] Last Admin: 08/26/22 08:28 Dose: 40 mg Documented By: MS Sodium Chloride (Normal Saline 0.9%) 500 mls @ 250 mls/hr IV BOLUS PRN PRN Reason: Fluid replacement Ceftriaxone Sodium 2,000 mg/ (Sodium Chloride) 100 mls @ 200 mls/hr IV Q24H [facility] Last Infusion: 08/26/22 13:33 Dose: 0 mls/hr Documented By: Admin: 08/26/22 12:02 Dose: 200 mls/hr Documented By: Infusion: 08/25/22 19:03 Dose: 0 mls/hr Documented By: Admin: 08/25/22 12:58 Dose: 200 mls/hr Documented By: Lisinopril (Lisinopril 5 Mg Tablet) 5 mg PO DAILY [facility] Last Admin: 08/26/22 08:27 Dose: 5 mg Documented By: Morphine Sulfate (Morphine 2 Mg/Ml Inj) 2 mg IV Q4H PRN PRN Reason: Breakthrough pain only (8-10) Ondansetron HCl (Ondansetron 4 Mg/2 Ml Inj) 4 mg IV Q8HR PRN PRN Reason: Nausea And Vomiting Oxybutynin (Oxybutynin 5 Mg Tablet) 5 mg PO TID PRN PRN Reason: BLADDER SPASMS Oxycodone HCl (Oxycodone Ir 5 Mg Tablet) 5 mg PO Q4HR PRN PRN Reason: Pain, Moderate (4-6) Pantoprazole Sodium (Pantoprazole Dr 40 Mg Tablet) 40 mg PO QACBREAK [facility] Last Admin: 08/27/22 06:04 Dose: 40 mg Documented By: Admin: 08/25/22 05:42 Dose: Not Given Documented By: Admin: 08/25/22 05:39 Dose: 40 mg Documented By: Admin: 08/24/22 07:52 Dose: 40 mg Documented By: Sumatriptan Succinate (Sumatriptan 25 Mg Tablet) 100 mg PO Q2H PRN PRN Reason: Headache Last Admin: 08/27/22 04:11 Dose: 100 mg Documented By: AZRA Tamsulosin HCl (Tamsulosin 0.4 Mg Capsule) 0.4 mg PO BID [facility] Last Admin: 08/26/22 20:03 Dose: 0.4 mg Documented By: Admin: 08/26/22 08:27 Dose: 0.4 mg Documented By: Admin: 08/25/22 21:28 Dose: 0.4 mg Documented By: Admin: 08/25/22 08:37 Dose: 0.4 mg Documented By: Admin: 08/24/22 20:56 Dose: 0.4 mg Documented By: Admin: 08/24/22 08:05 Dose: 0.4 mg Documented By: Discontinued Medications Acetaminophen (Acetaminophen 325 Mg Tablet) 975 mg PO NOW ONE Stop: 08/23/22 20:45 Last Admin: 08/23/22 20:49 Dose: 975 mg Documented By: MARIAH Furosemide (Furosemide 20 Mg/2 Ml Vial) 20 mg IV NOW ONE Stop: 08/25/22 06:00 Last Admin: 08/25/22 06:13 Dose: 20 mg Documented By: ELISE Sodium Chloride (Normal Saline 0.9%) 1,000 mls @ 1,000 mls/hr IV BOLUS ONE Stop: 08/23/22 21:42 Last Infusion: 08/23/22 22:25 Dose: 0 mls/hr Documented By: Admin: 08/23/22 20:49 Dose: 1,000 mls/hr Documented By: MARIAH Lactated Ringer's (Lactated Ringers) 1,700.97 mls @ 566.99 mls/hr 30 ml/kg infuse over 3 hr (1700.97 ml) IV NOW ONE Stop: 08/24/22 00:22 Last Admin: 08/23/22 22:25 Dose: 566.99 mls/hr Documented By: JERRY Levofloxacin (Levaquin) 750 mg in 150 mls @ 100 mls/hr IV Q24H [facility] Last Infusion: 08/23/22 23:20 Dose: 0 mls/hr Documented By: Admin: 08/23/22 21:45 Dose: 100 mls/hr Documented By: JERRY Lactated Ringer's (Lactated Ringers) 1,000 mls @ 100 mls/hr IV CONT LIZ Last Admin: 08/24/22 01:02 Dose: 100 mls/hr Documented By: AZRA Piperacillin Sod/Tazobactam (Sod 4.5 gm/ Sodium Chloride) 100 mls @ 200 mls/hr IV NOW ONE Stop: 08/24/22 09:13 Last Admin: 08/24/22 10:03 Dose: 200 mls/hr Documented By: Piperacillin Sod/Tazobactam (Sod 3.375 gm/ Sodium Chloride) 100 mls @ 25 mls/hr IV Q8H LIZ Last Infusion: 08/25/22 12:54 Dose: 0 mls/hr Documented By: Admin: 08/25/22 08:37 Dose: 25 mls/hr Documented By: Infusion: 08/25/22 07:34 Dose: 0 mls/hr Documented By: YARaisa Admin: 08/25/22 00:54 Dose: 25 mls/hr Documented By: Infusion: 08/24/22 21:33 Dose: 25 mls/hr Documented By: Admin: 08/24/22 17:33 Dose: 25 mls/hr Documented By: Sodium Chloride (Normal Saline 0.9%) 1,000 mls @ 100 mls/hr IV CONT LIZ Last Admin: 08/25/22 23:57 Dose: 100 mls/hr Documented By: Infusion: 08/25/22 22:59 Dose: 100 mls/hr Documented By: Admin: 08/25/22 12:59 Dose: 100 mls/hr Documented By: Infusion: 08/25/22 12:44 Dose: 100 mls/hr Documented By: Admin: 08/25/22 02:44 Dose: 100 mls/hr Documented By: Infusion: 08/25/22 02:44 Dose: 100 mls/hr Documented By: Admin: 08/24/22 17:34 Dose: 100 mls/hr Documented By: Infusion: 08/24/22 17:34 Dose: 100 mls/hr Documented By: Admin: 08/24/22 10:17 Dose: 100 mls/hr Documented By: Sodium Chloride (Normal Saline 0.9%) 500 mls @ 1,000 mls/hr IV BOLUS ONE Stop: 08/24/22 13:21 Last Admin: 08/24/22 13:41 Dose: 250 mls/hr Documented By: Ketorolac Tromethamine (Ketorolac 30 Mg/Ml Vial) 15 mg IV NOW ONE Stop: 08/23/22 21:24 Last Admin: 08/23/22 21:49 Dose: 15 mg Documented By: JERRY Ketorolac Tromethamine (Ketorolac 30 Mg/Ml Vial) 15 mg IV Q6H LIZ Stop: 08/29/22 08:58 Last Admin: 08/25/22 08:36 Dose: 15 mg Documented By: Admin: 08/25/22 02:41 Dose: 15 mg Documented By: Admin: 08/24/22 20:56 Dose: 15 mg Documented By: Admin: 08/24/22 15:04 Dose: 15 mg Documented By: Admin: 08/24/22 09:06 Dose: 15 mg Documented By: Tamsulosin HCl (Tamsulosin 0.4 Mg Capsule) 0.4 mg PO DAILY [facility] Last Admin: 08/24/22 10:26 Dose: Not Given Documented By: GREGOR Vital Signs Vital signs: Vital Signs - 8 hr 08/23/22 20:31 08/23/22 21:23 08/23/22 21:05 Temperature 101 F H 103.2 F H Pulse Rate 130 H 117 H Respiratory Rate 30 H Blood Pressure 165/82 H Pulse Oximetry 100 94 Oxygen Delivery Method Room Air 08/23/22 21:06 08/23/22 21:06 08/23/22 21:49 Temperature 103.0 F H Pulse Rate 117 H Respiratory Rate Blood Pressure 122/64 Pulse Oximetry 94 Oxygen Delivery Method 08/23/22 22:23 08/23/22 22:28 Temperature 100.3 F H Pulse Rate 98 H Respiratory Rate 16 Blood Pressure 119/68 Pulse Oximetry 97 Oxygen Delivery Method Room Air Sepsis Guideline Criteria Level 1 - Infection Sepsis Infection Criteria Present: Suspected New Infection Treatment Initiated Antibiotics:: IV antimicrobials will be initiated as soon as possible after recognition of sepsis state and within one hour for both sepsis and septic shock. MDM - Sepsis Lab Data Result diagrams: 08/26/22 06:07 08/26/22 06:07 Labs: Lab Results 08/23/22 08/23/22 08/23/22 Range/Units 20:44 20:50 21:20 WBC 9.3 (4.5-11.0) X10^3/uL RBC 4.41 L (4.5-5.9) X10^6/uL Hgb 13.9 (13.5-17.5) g/dL Hct 40.5 L (41-53) % MCV 91.8 (80-100) fL MCH 31.5 (26-34) PG MCHC 34.3 (30-36) % RDW 13.9 (11.6-14.8) % Plt Count 161 (150-400) X10^3/uL Neut % (Auto) 93.4 H (50-75) % Lymph % (Auto) 4.9 L (25-40) % [place] % (Auto) 1.2 L (3-14) % Eos % (Auto) 0.3 L (2-4) % Baso % (Auto) 0.2 (0-2) % Neut # (Auto) 8700 H (1929-3301) /uL Lymph # (Auto) 500 L (8220-6909) /uL [place] # (Auto) 100 (0-900) /uL Eos # (Auto) 0 (0-450) /uL Baso # (Auto) 0 (0-100) /uL Sodium (137-145) mmol/L Potassium (3.4-5.1) mmol/L Chloride (98-107) mmol/L Carbon Dioxide (22-32) mmol/L BUN (9-20) mg/dL Creatinine (0.66-1.25) mg/dL Estimated GFR (>60) mL/min BUN/Creatinine Ratio (6-22) Glucose (80-110) mg/dL Lactate (0.7-2.1) mmol/L Calcium (8.4-10.2) mg/dL Total Bilirubin (0.2-1.3) mg/dL AST (17-59) IU/L ALT (<50) IU/L Alkaline Phosphatase (38-126) U/L Total Protein (6.3-8.2) g/dL Albumin (3.5-5.0) g/dL Globulin (1.7-4.1) g/dL Albumin/Globulin Ratio (1.0-2.8) Lipase (23-300) U/L Procalcitonin (<0.5) ng/mL Urine Color Dark yellow Urine Appearance Cloudy Urine pH 5.0 (4.5-8.0) Ur Specific [place] 1.015 (1.000-1.035) Urine Protein 2+ H (Negative) Urine Glucose (UA) Negative (Negative) g/dL Urine Ketones Negative (NEGATIVE) Urine Occult Blood 3+ H (Negative) Urine Nitrate Positive H (Negative) Urine Bilirubin Negative (NEGATIVE) Urine Urobilinogen 0.2 (0.2) E.U./dL Ur Leukocyte Esterase 3+ H (NEGATIVE) Urine RBC >100/hpf H (0-5/HPF) Urine WBC >100/hpf H (0-5/HPF) Ur Squamous Epith Cells 1-5 /hpf (0-5/HPF) Urine Bacteria Many (>30) H (None) Ur Culture Indicated? Specimen cultured A. baumannii (PCR) Not detected (Not Detect) Venus albicans (PCR) Not detected (Not Detect) C. glabrata (PCR) Not detected (Not Detect) C. krusei (PCR) Not detected (Not Detect) C. parapsilosis (PCR) Not detected (Not Detect) C. tropicalis (PCR) Not detected (Not Detect) SARS-CoV-2 (PCR) (Negative) Enterobacteriac sp PCR Detected H (Not Detect) E. cloacae complex PCR Not detected (Not Detect) Enterococcus sp PCR Not detected (Not Detect) E. coli (PCR) Not detected (Not Detect) H. influenzae (PCR) Not detected (Not Detect) Klebsiella oxytoca PCR Not detected (Not Detect) Klebsiella pneumoniae Detected H (Not Detect) List. monocytogenes PCR Not detected (Not Detect) N. meningitidis (PCR) Not detected (Not Detect) Proteus species (PCR) Not detected (Not Detect) Serratia marcescens PCR Not detected (Not Detect) Staphylococcus sp PCR Not detected (Not Detect) Staph aureus (PCR) Not detected (Not Detect) mecA-Methicil Res Gene Not Reportable Streptococcus sp PCR Not detected (Not Detect) Group A Strep (PCR) Not detected (Not Detect) Strep agalactiae (PCR) Not detected (Not Detect) Strep pneumoniae (PCR) Not detected (Not Detect) P. aeruginosa (PCR) Not detected (Not Detect) Paty/B-Vanco Res Genes Not Reportable KPC-Carbap Res Gene PCR Not detected (Not Detect) 08/23/22 08/23/22 08/23/22 Range/Units 21:20 21:20 21:30 WBC (4.5-11.0) X10^3/uL RBC (4.5-5.9) X10^6/uL Hgb (13.5-17.5) g/dL Hct (41-53) % MCV (80-100) fL MCH (26-34) PG MCHC (30-36) % RDW (11.6-14.8) % Plt Count (150-400) X10^3/uL Neut % (Auto) (50-75) % Lymph % (Auto) (25-40) % [place] % (Auto) (3-14) % Eos % (Auto) (2-4) % Baso % (Auto) (0-2) % Neut # (Auto) (2582-2468) /uL Lymph # (Auto) (7364-7333) /uL [place] # (Auto) (0-900) /uL Eos # (Auto) (0-450) /uL Baso # (Auto) (0-100) /uL Sodium 133 L (137-145) mmol/L Potassium 4.3 (3.4-5.1) mmol/L Chloride 101 (98-107) mmol/L Carbon Dioxide 19 L (22-32) mmol/L BUN 30 H (9-20) mg/dL Creatinine 1.11 (0.66-1.25) mg/dL Estimated GFR > 60 (>60) mL/min BUN/Creatinine Ratio 27.0 H (6-22) Glucose 118 H (80-110) mg/dL Lactate 3.0 H (0.7-2.1) mmol/L Calcium 8.3 L (8.4-10.2) mg/dL Total Bilirubin 1.1 (0.2-1.3) mg/dL AST 66 H (17-59) IU/L ALT 59 H (<50) IU/L Alkaline Phosphatase 71 (38-126) U/L Total Protein 6.7 (6.3-8.2) g/dL Albumin 3.8 (3.5-5.0) g/dL Globulin 2.9 (1.7-4.1) g/dL Albumin/Globulin Ratio 1.3 (1.0-2.8) Lipase 283 (23-300) U/L Procalcitonin 1.85 H (<0.5) ng/mL Urine Color Urine Appearance Urine pH (4.5-8.0) Ur Specific [place] (1.000-1.035) Urine Protein (Negative) Urine Glucose (UA) (Negative) g/dL Urine Ketones (NEGATIVE) Urine Occult Blood (Negative) Urine Nitrate (Negative) Urine Bilirubin (NEGATIVE) Urine Urobilinogen (0.2) E.U./dL Ur Leukocyte Esterase (NEGATIVE) Urine RBC (0-5/HPF) Urine WBC (0-5/HPF) Ur Squamous Epith Cells (0-5/HPF) Urine Bacteria (None) Ur Culture Indicated? A. baumannii (PCR) (Not Detect) Venus albicans (PCR) (Not Detect) C. glabrata (PCR) (Not Detect) C. krusei (PCR) (Not Detect) C. parapsilosis (PCR) (Not Detect) C. tropicalis (PCR) (Not Detect) SARS-CoV-2 (PCR) Negative (Negative) Enterobacteriac sp PCR (Not Detect) E. cloacae complex PCR (Not Detect) Enterococcus sp PCR (Not Detect) E. coli (PCR) (Not Detect) H. influenzae (PCR) (Not Detect) Klebsiella oxytoca PCR (Not Detect) Klebsiella pneumoniae (Not Detect) List. monocytogenes PCR (Not Detect) N. meningitidis (PCR) (Not Detect) Proteus species (PCR) (Not Detect) Serratia marcescens PCR (Not Detect) Staphylococcus sp PCR (Not Detect) Staph aureus (PCR) (Not Detect) mecA-Methicil Res Gene Streptococcus sp PCR (Not Detect) Group A Strep (PCR) (Not Detect) Strep agalactiae (PCR) (Not Detect) Strep pneumoniae (PCR) (Not Detect) P. aeruginosa (PCR) (Not Detect) Paty/B-Vanco Res Genes KPC-Carbap Res Gene PCR (Not Detect) Discharge Plan Departure Patient Disposition: Admitted As Inpatient Clinical Impression: Sepsis, Acute UTI Admit Date/Time: 08/23/22 23:00 Admit Provider: Alexis Burnett
[2022-08-23 21:35] LABS: Appearance Urine UA Cloudy; Color Urine UA Dark Yellow
[2022-08-23 21:38] LABS: Bacteria Urine Many (>30); RBC Urine >100/HPF (0-5/HPF); Squamous Epithelial Cell Urine 1-5 /HPF (0-5/HPF); WBC Urine >100/HPF (0-5/HPF)
[2022-08-23 21:39] LABS: Culture Indicated Urine Specimen Cultured
[2022-08-23 21:40] LABS: Add Manual Diff / Slide Review NO; Basophils Absolute Auto 0 /uL (0-100); Basophils Percent Auto 0.2 % (0-2); Eosinophils Absolute Auto 0 /uL (0-450); Eosinophils Percent Auto 0.3 % (2-4); Hematocrit 40.5 % (41-53); Hemoglobin 13.9 g/dL (13.5-17.5); Lymphocytes Absolute Auto 500 /uL (1100-4500); Lymphocytes Percent Auto 4.9 % (25-40); Mean Corpuscular HGB Conc 34.3 % (30-36); Mean Corpuscular Hemoglobin 31.5 PG (26-34); Mean Corpuscular Volume 91.8 fL (80-100); Monocytes Absolute Auto 100 /uL (0-900); Monocytes Percent Auto 1.2 % (3-14); Neutrophils Absolute Auto 8700 /uL (1500-7000); Neutrophils Percent Auto 93.4 % (50-75); Platelet Count 161 X10^3/uL (150-400); Red Blood Cell Count 4.41 X10^6/uL (4.5-5.9); Red Cell Distribution Width 13.9 % (11.6-14.8); White Blood Cell Count 9.3 X10^3/uL (4.5-11.0)
[2022-08-23] MEDS: levoFLOXacin 750 MG/150 ML PIGGYBACK 100 MG IV (21:45)
[2022-08-23] MEDS: KETOROLAC 30 MG/ML VIAL 15 MG IV (21:49)
[2022-08-23 21:50] LABS: Alanine Aminotransferase 59 IU/L (<50); Albumin 3.8 g/dL (3.5-5.0); Albumin Globulin Ratio 1.3 (1.0-2.8); Alkaline Phosphatase 71 U/L (38-126); Aspartate Aminotransferase 66 IU/L (17-59); Bilirubin Total 1.1 mg/dL (0.2-1.3); Blood Urea Nitrogen 30 mg/dL (9-20); Calcium 8.3 mg/dL (8.4-10.2); Carbon Dioxide 19 mmol/L (22-32); Chloride 101 mmol/L (98-107); Estimated Glomerular Filt Rate > 60 mL/min (>60); Globulin 2.9 g/dL (1.7-4.1); Glucose 118 mg/dL (80-110); HEMOLYSIS < 15 (0-50); Lipase 283 U/L (23-300); Potassium 4.3 mmol/L (3.4-5.1); Sodium 133 mmol/L (137-145); Total Protein 6.7 g/dL (6.3-8.2)
[2022-08-23 21:55] LABS: COVID19 -Nasal RAPID Negative (Negative)
--- NOTE | 2022-08-23 21:56 | DI.US.S_ITS ---
PROCEDURE: US RENAL COMPLETE INDICATIONS: RECENT BLADDER OUTLET DILATION; SEPTIC TECHNIQUE: Real-time scanning was performed of the kidneys and bladder, with image documentation. COMPARISON: [facility], , US RENAL COMPLETE, 05/23/2022, 14:11. FINDINGS: Kidneys: Kidneys are normal in size. Right kidney measures 10.5 cm long; left kidney measures 9.1 cm long. Right renal cortical thickness is 1.5 cm; left renal cortical thickness is 1.2 cm. Renal cortical echotexture is normal. No hydronephrosis or nephrolithiasis. No suspicious solid mass lesions. Bladder: Pena catheter is seen in a decompressed urinary bladder. No ureteral jets are noted with color Doppler interrogation. (Of note, ureteral jets may not be detectable in up to 25% of cases due to insufficient differences in specific gravity between ureteral and bladder urine). Miscellaneous: No free pelvic fluid. IMPRESSION: 1. No renal stones or hydronephrosis. No gross solid appearing renal lesion. 2. Pena catheter in a decompressed urinary bladder. Dictated by: Ramesh Liang M.D. on 08/23/2022 at 23:00 Approved by: Ramehs Linag M.D. on 08/23/2022 at 23:01
--- NOTE | 2022-08-23 21:57 | PC.NURSE ---
[id number] Hospitalist at the bedside
[2022-08-23 22:06] LABS: Procalcitonin 1.85 ng/mL (<0.5)
--- NOTE | 2022-08-23 22:16 | PC.NURSE ---
2216 Hospitalist verbal order for 3L NS total. Hold LR. Strict output.
[2022-08-23] MEDS: LACTATED RINGERS 1,700.97 ML 566.99 ML IV (22:25)
--- NOTE | 2022-08-23 22:36 | PC.NURSE ---
2236 Patients fever trending down. Ultrasound arrives at the bedside.
--- NOTE | 2022-08-23 23:12 | P.HP_ITS ---
History of Present Illness History of Present Illness Date Patient Seen: 08/23/22 Date of Onset of Symptoms: 08/22/22 Chief complaint: states is freezing, can't breathe Narrative: 71-year-old male nonsmoker with history of BPH and urologic procedure 1 week ago to help with a stricture at the neck of his bladder here by our Urology team presents with a chief complaint of gradually worsening fever, shaking chills and generalized weakness over the past day or 2.? He is not dizzy nor weak or lightheaded.? He has no chest pain, shortness of breath or cough.? He presents with rigors, fever 103, elevated respiratory rate and heart rate and sepsis protocol was activated. Patient heart rate responded well with IV fluids and blood pressures improved. When I saw the patient in the ER, looks more comfortable, rigors significantly improved. Patient denies any specific pain at this time. is present at bedside. Patient did not had any episodes of fevers or chills postprocedure for 5 days. Urine output is adequate till today. Patient does have some nausea but no vomiting. 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 Enlarged prostate Headache, migraine History of colon polyps Right hip pain Urinary retention Surgical History History of cataract extraction (~2004) History of nasal polypectomy (~1959) History of surgery (~2002) History of tonsillectomy and adenoidectomy Hx of cholecystectomy (1998) Hx of cystoscopy Hx of esophagogastroduodenoscopy (03/21/22) Hx of hemorrhoidectomy (08/2017) Hx of hernia repair (08/2017) Hx of left inguinal hernia repair (08/17/20) Hx of tooth extraction Hx of transurethral resection of prostate (~2015) Hx of wisdom tooth extraction (~1979) Family & Social History Family History Father Hypertension Prostate cancer Mother Diabetes mellitus Renal failure Sister Liver cancer Social History: household members spouse Safety & Behavioral: Feels Safe in Current Yes Environment Tobacco & Substance use: Smoking Status Never smoker alcohol intake current alcohol intake frequency a few times a month Substance Use Type does not use Comment: Lives with his . Meds Home Medications and Allergies Home Medications Medication Instructions Recorded Confirmed Type sumatriptan succinate 100 mg 100 mg PO PRN PRN Headache ##0 05/07/12 08/16/22 History tablet (Imitrex) tamsulosin 0.4 mg capsule (Flomax) 0.4 mg PO BID ##0 11/16/17 08/16/22 History flaxseed oil 1,000 mg capsule 1,000 mg PO DAILY 06/03/20 08/16/22 History ipratropium bromide 42 mcg (0.06 2 spray intranasal BID 03/09/22 08/16/22 History %) nasal spray niacin 500 mg tablet 500 mg PO BID 03/09/22 08/16/22 History cetirizine 10 mg tablet 10 mg PO DAILY PRN Allergy Symptoms 03/21/22 08/16/22 History omeprazole 20 mg capsule,delayed 20 mg PO DAILY #90 caps 03/21/22 08/16/22 Rx release sulfacetamide sodium-sulfur 10 %-5 1 applic topical BID 04/22/22 08/16/22 History % (w/w) topical cleanser oxybutynin chloride 5 mg tablet 5 mg PO BID-TID PRN bladder spasms 08/16/22 Rx #30 tabs phenazopyridine 200 mg tablet 200 mg PO TID PRN pain #30 tabs 08/16/22 Rx (Pyridium) Allergies Allergy/AdvReac Type Severity Reaction Status Date / Time No Known Allergies Allergy Verified 08/16/22 10:08 Review of Systems Review of Systems Narrative: No other neurological symptoms or GI symptoms. All other systems reviewed, negative other than as mentioned above Exam Vital Signs (past 8 hours): - 08/23/22 20:31 08/23/22 21:23 08/23/22 21:05 Temperature 101 F H 103.2 F H Pulse Rate 130 H 117 H Respiratory Rate 30 H Blood Pressure 165/82 H Pulse Oximetry 100 94 Oxygen Delivery Method Room Air 08/23/22 21:06 08/23/22 21:06 08/23/22 21:49 Temperature 103.0 F H Pulse Rate 117 H Respiratory Rate Blood Pressure 122/64 Pulse Oximetry 94 Oxygen Delivery Method 08/23/22 22:23 08/23/22 22:28 Temperature 100.3 F H Pulse Rate 98 H Respiratory Rate 16 Blood Pressure 119/68 Pulse Oximetry 97 Oxygen Delivery Method Room Air Oxygen Delivery Method Room Air Narrative Exam Narrative: Patient looks comfortable, able to make conversation, follows commands. Pena catheter is in place, dark urine in the bag. No suprapubic tenderness or abdominal tenderness. No renal angle tenderness constitutional, GI, cardiovascular, , neuro, skin, psych, respiratory, HEENT, examination done, negative other than as mentioned above. Objective Labs Result Diagrams: 08/23/22 21:20 08/23/22 21:20 Labs: Laboratory Results - last 24 hr 08/23/22 08/23/22 08/23/22 20:50 21:20 21:20 WBC 9.3 RBC 4.41 L Hgb 13.9 Hct 40.5 L MCV 91.8 MCH 31.5 MCHC 34.3 RDW 13.9 Plt Count 161 Neut % (Auto) 93.4 H Lymph % (Auto) 4.9 L [place] % (Auto) 1.2 L Eos % (Auto) 0.3 L Baso % (Auto) 0.2 Neut # (Auto) 8700 H Lymph # (Auto) 500 L [place] # (Auto) 100 Eos # (Auto) 0 Baso # (Auto) 0 Sodium 133 L Potassium 4.3 Chloride 101 Carbon Dioxide 19 L BUN 30 H Creatinine 1.11 Estimated GFR > 60 BUN/Creatinine Ratio 27.0 H Glucose 118 H Lactate Calcium 8.3 L Total Bilirubin 1.1 AST 66 H ALT 59 H Alkaline Phosphatase 71 Total Protein 6.7 Albumin 3.8 Globulin 2.9 Albumin/Globulin Ratio 1.3 Lipase 283 Procalcitonin 1.85 H Urine Color Dark yellow Urine Appearance Cloudy Urine pH 5.0 Ur Specific [place] 1.015 Urine Protein 2+ H Urine Glucose (UA) Negative Urine Ketones Negative Urine Occult Blood 3+ H Urine Nitrate Positive H Urine Bilirubin Negative Urine Urobilinogen 0.2 Ur Leukocyte Esterase 3+ H Urine RBC >100/hpf H Urine WBC >100/hpf H Ur Squamous Epith Cells 1-5 /hpf Urine Bacteria Many (>30) H Ur Culture Indicated? Specimen cultured SARS-CoV-2 (PCR) 08/23/22 08/23/22 21:20 21:30 WBC RBC Hgb Hct MCV MCH MCHC RDW Plt Count Neut % (Auto) Lymph % (Auto) [place] % (Auto) Eos % (Auto) Baso % (Auto) Neut # (Auto) Lymph # (Auto) [place] # (Auto) Eos # (Auto) Baso # (Auto) Sodium Potassium Chloride Carbon Dioxide BUN Creatinine Estimated GFR BUN/Creatinine Ratio Glucose Lactate 3.0 H Calcium Total Bilirubin AST ALT Alkaline Phosphatase Total Protein Albumin Globulin Albumin/Globulin Ratio Lipase Procalcitonin Urine Color Urine Appearance Urine pH Ur Specific [place] Urine Protein Urine Glucose (UA) Urine Ketones Urine Occult Blood Urine Nitrate Urine Bilirubin Urine Urobilinogen Ur Leukocyte Esterase Urine RBC Urine WBC Ur Squamous Epith Cells Urine Bacteria Ur Culture Indicated? SARS-CoV-2 (PCR) Negative Assessment & Plan Assessment and plan (1) Sepsis: Status: Acute Assessment & Plan narrative: Sepsis secondary to UTI -status post urological procedure -no risk for multidrug resistant organisms at this time -patient was given Levaquin in the ER, we will continue IV Levaquin and IV fluids. Strict I's and O's. No signs of obstruction. Continue to monitor renal functions. Blood cultures and urine cultures are pending, antibiotic choice based on the cultures. History of migraine headaches -sumatriptan as needed SCDs for DVT prophylaxis and PPI for GI prophylax Patient full code Care plan discussed with the patient and at bedside, answered all questions. Overall prognosis is good Urology was called by ER, no further recommendations at this time Expected length of stay greater than 2 midnights, inpatient status Time Spent With Patient Critical Care time: I spent a total of [] minutes of critical care time on this patient's care today; this time is exclusive of procedural time.
[2022-08-23 23:33] LABS: Reflexed Lactate in 2 Hours Y
[2022-08-24] VITALS (11 sets, daily range): BP systolic 85–109; BP diastolic 44–65; PULSE 56–101; RESP 16–20; TEMP 36.6–37.6; O2SAT 94–98
[2022-08-24 00:05] LABS: Lactate 2HR (Lactic Acid Rflx) 0.9 mmol/L (0.7-2.1)
[2022-08-24] MEDS: LACTATED RINGERS 1,000 ML 100 ML IV (01:02)
--- NOTE | 2022-08-24 01:38 | PC.NURSE ---
Admit/NOC Shift Note- Patient arrived to room from ER at 1135. Patient alert and oriented and a bel to make needs known to staff. Admit questions done, medications reviewed, physical assessment done, and skin check completed. Patient oriented to bed and bed controls, room, lights, phone, menu, bathroom, and call de la cruz/TV Remote. Safety measures in place. Patient agrees to call for assistance. SCD's applied as ordered. Call de la cruz and phone with reach. Will continue to monitor.
[2022-08-24] MEDS: PANTOPRAZOLE DR 40 MG TABLET PO (07:52)
[2022-08-24 07:55] LABS: Add Manual Diff / Slide Review NO; Basophils Absolute Auto 0 /uL (0-100); Basophils Percent Auto 0.2 % (0-2); Eosinophils Absolute Auto 100 /uL (0-450); Eosinophils Percent Auto 0.4 % (2-4); Hematocrit 36.9 % (41-53); Hemoglobin 12.4 g/dL (13.5-17.5); Lymphocytes Absolute Auto 500 /uL (1100-4500); Mean Corpuscular HGB Conc 33.6 % (30-36); Mean Corpuscular Hemoglobin 31.1 PG (26-34); Mean Corpuscular Volume 92.8 fL (80-100); Monocytes Absolute Auto 1700 /uL (0-900); Monocytes Percent Auto 7.5 % (3-14); Neutrophils Absolute Auto 20800 /uL (1500-7000); Neutrophils Percent Auto 89.9 % (50-75); Platelet Count 143 X10^3/uL (150-400); Red Blood Cell Count 3.98 X10^6/uL (4.5-5.9); Red Cell Distribution Width 13.8 % (11.6-14.8); White Blood Cell Count 23.1 X10^3/uL (4.5-11.0)
[2022-08-24] MEDS: TAMSULOSIN 0.4 MG CAPSULE PO ×2 (08:05→20:56)
[2022-08-24 08:09] LABS: Alanine Aminotransferase 66 IU/L (<50); Albumin Globulin Ratio 1.2 (1.0-2.8); Alkaline Phosphatase 56 U/L (38-126); Aspartate Aminotransferase 60 IU/L (17-59); BUN Creatinine Ratio 28.6 (6-22); Bilirubin Total 1.1 mg/dL (0.2-1.3); Blood Urea Nitrogen 30 mg/dL (9-20); Calcium 7.8 mg/dL (8.4-10.2); Carbon Dioxide 24 mmol/L (22-32); Chloride 102 mmol/L (98-107); Estimated Glomerular Filt Rate > 60 mL/min (>60); Globulin 2.5 g/dL (1.7-4.1); Glucose 109 mg/dL (80-110); HEMOLYSIS < 15 (0-50); Potassium 4.5 mmol/L (3.4-5.1); Sodium 132 mmol/L (137-145); Total Protein 5.5 g/dL (6.3-8.2)
--- NOTE | 2022-08-24 08:52 | PC.NURSE ---
Day shift: Pt with chills and shivering at approx 0845. Pt also reports it's difficult to take deep breaths. Temp 99.6. Dr Sharma informed. Heat adjusted in room and warm blankets placed on him.
[2022-08-24] MEDS: KETOROLAC 30 MG/ML VIAL 15 MG IV ×3 (09:06→20:56)
[2022-08-24 09:07] LABS: Acinetobacter baumannii Not Detected (Not Detect); E. coli Not Detected (Not Detect); Enterobacteriaceae species Detected (Not Detect); Enterococcus species Not Detected (Not Detect); KPC (carbapenem-resist gene) Not Detected (Not Detect); Listeria monocytogenes Not Detected (Not Detect); Staphylococcus species Not Detected (Not Detect); Streptococcus agalactiae (Gr B Not Detected (Not Detect); Streptococcus pneumonia Not Detected (Not Detect); Streptococcus pyogenes (Gr A) Not Detected (Not Detect); Streptococcus species Not Detected (Not Detect)
[2022-08-24] MEDS: ACETAMINOPHEN 325 MG TABLET 650 MG PO (09:07)
[2022-08-24 09:08] LABS: Candida albicans Not Detected (Not Detect); Candida glabrata Not Detected (Not Detect); Candida krusei Not Detected (Not Detect); Candida parapsilosis Not Detected (Not Detect); Candida tropicalis Not Detected (Not Detect); Enterobacter cloacae complex Not Detected (Not Detect); Haemophilus influenzae Not Detected (Not Detect); Neisseria meningitidis Not Detected (Not Detect); Proteus species Not Detected (Not Detect); Pseudomonas aeruginosa Not Detected (Not Detect); Serratia marcescens Not Detected (Not Detect)
--- NOTE | 2022-08-24 09:11 | PM.PN.1 ---
Subjective Subjective Interval history: 71-year-old male nonsmoker with history of BPH and urologic procedure 1 week ago to help with a stricture at the neck of his bladder here by our Urology team presented with a chief complaint of gradually worsening fever, shaking chills and generalized weakness over the past day or 2. This morning having shakes chills and shortness of breath. Beginning to settle as temperature is rising. Tylenol and ketorolac IV ordered to help with symptoms. A blood is culture positive for Klebsiella. Exam Vital Signs (past 8 hours): - 08/24/22 04:26 08/24/22 08:00 Temperature 99.0 F 98.6 F Pulse Rate 70 66 Respiratory Rate 16 16 Blood Pressure 105/50 L 109/65 Pulse Oximetry 94 97 Oxygen Flow Rate 0 Oxygen Delivery Method Room Air Oxygen Flow Rate 0 Narrative Exam Narrative: General: Appears unwell and ill HEENT: Pupils equal reactive to light extraocular movements normal neck is supple. Trachea is midline. Head is normocephalic Cardiovascular: Heart sounds S1 and S2 with no extra sounds or murmurs. Peripheral pulses equal bilaterally. No pedal edema. Respiratory: Adequate air entry throughout the lung burd[place]. No wheezes or crackles. Gastrointestinal: Abdomen is soft. Nontender. Bowel sounds normal. Musculoskeletal: Able to move all extremities volitionally. No localized strength deficits. Neuro: Normal sensation of all extremities. Skin: No lesions or rashes. Psych: Normal mood and affect. Oriented x3. Objective Labs Result Diagrams: 08/24/22 07:40 08/24/22 07:40 Labs: Laboratory Results - last 24 hr 08/23/22 08/23/22 08/23/22 20:44 20:50 21:20 WBC 9.3 RBC 4.41 L Hgb 13.9 Hct 40.5 L MCV 91.8 MCH 31.5 MCHC 34.3 RDW 13.9 Plt Count 161 Neut % (Auto) 93.4 H Lymph % (Auto) 4.9 L [place] % (Auto) 1.2 L Eos % (Auto) 0.3 L Baso % (Auto) 0.2 Neut # (Auto) 8700 H Lymph # (Auto) 500 L [place] # (Auto) 100 Eos # (Auto) 0 Baso # (Auto) 0 Sodium Potassium Chloride Carbon Dioxide BUN Creatinine Estimated GFR BUN/Creatinine Ratio Glucose Lactate Calcium Total Bilirubin Conjugated Bilirubin Unconjugated Bilirubin AST ALT Alkaline Phosphatase C-Reactive Protein Total Protein Albumin Globulin Albumin/Globulin Ratio Lipase Procalcitonin Urine Color Dark yellow Urine Appearance Cloudy Urine pH 5.0 Ur Specific [place] 1.015 Urine Protein 2+ H Urine Glucose (UA) Negative Urine Ketones Negative Urine Occult Blood 3+ H Urine Nitrate Positive H Urine Bilirubin Negative Urine Urobilinogen 0.2 Ur Leukocyte Esterase 3+ H Urine RBC >100/hpf H Urine WBC >100/hpf H Ur Squamous Epith Cells 1-5 /hpf Urine Bacteria Many (>30) H Ur Culture Indicated? Specimen cultured A. baumannii (PCR) Not detected Venus albicans (PCR) Not detected C. glabrata (PCR) Not detected C. krusei (PCR) Not detected C. parapsilosis (PCR) Not detected C. tropicalis (PCR) Not detected SARS-CoV-2 (PCR) Enterobacteriac sp PCR Detected H E. cloacae complex PCR Not detected Enterococcus sp PCR Not detected E. coli (PCR) Not detected H. influenzae (PCR) Not detected Klebsiella oxytoca PCR Not detected Klebsiella pneumoniae Detected H List. monocytogenes PCR Not detected N. meningitidis (PCR) Not detected Proteus species (PCR) Not detected Serratia marcescens PCR Not detected Staphylococcus sp PCR Not detected Staph aureus (PCR) Not detected mecA-Methicil Res Gene Not Reportable Streptococcus sp PCR Not detected Group A Strep (PCR) Not detected Strep agalactiae (PCR) Not detected Strep pneumoniae (PCR) Not detected P. aeruginosa (PCR) Not detected Paty/B-Vanco Res Genes Not Reportable KPC-Carbap Res Gene PCR Not detected 08/23/22 08/23/22 08/23/22 21:20 21:20 21:30 WBC RBC Hgb Hct MCV MCH MCHC RDW Plt Count Neut % (Auto) Lymph % (Auto) [place] % (Auto) Eos % (Auto) Baso % (Auto) Neut # (Auto) Lymph # (Auto) [place] # (Auto) Eos # (Auto) Baso # (Auto) Sodium 133 L Potassium 4.3 Chloride 101 Carbon Dioxide 19 L BUN 30 H Creatinine 1.11 Estimated GFR > 60 BUN/Creatinine Ratio 27.0 H Glucose 118 H Lactate 3.0 H Calcium 8.3 L Total Bilirubin 1.1 Conjugated Bilirubin Unconjugated Bilirubin AST 66 H ALT 59 H Alkaline Phosphatase 71 C-Reactive Protein Total Protein 6.7 Albumin 3.8 Globulin 2.9 Albumin/Globulin Ratio 1.3 Lipase 283 Procalcitonin 1.85 H Urine Color Urine Appearance Urine pH Ur Specific [place] Urine Protein Urine Glucose (UA) Urine Ketones Urine Occult Blood Urine Nitrate Urine Bilirubin Urine Urobilinogen Ur Leukocyte Esterase Urine RBC Urine WBC Ur Squamous Epith Cells Urine Bacteria Ur Culture Indicated? A. baumannii (PCR) Venus albicans (PCR) C. glabrata (PCR) C. krusei (PCR) C. parapsilosis (PCR) C. tropicalis (PCR) SARS-CoV-2 (PCR) Negative Enterobacteriac sp PCR E. cloacae complex PCR Enterococcus sp PCR E. coli (PCR) H. influenzae (PCR) Klebsiella oxytoca PCR Klebsiella pneumoniae List. monocytogenes PCR N. meningitidis (PCR) Proteus species (PCR) Serratia marcescens PCR Staphylococcus sp PCR Staph aureus (PCR) mecA-Methicil Res Gene Streptococcus sp PCR Group A Strep (PCR) Strep agalactiae (PCR) Strep pneumoniae (PCR) P. aeruginosa (PCR) Paty/B-Vanco Res Genes KPC-Carbap Res Gene PCR 08/23/22 08/24/22 08/24/22 23:48 07:40 07:40 WBC 23.1 H D RBC 3.98 L Hgb 12.4 L Hct 36.9 L MCV 92.8 MCH 31.1 MCHC 33.6 RDW 13.8 Plt Count 143 L Neut % (Auto) 89.9 H Lymph % (Auto) 2.0 L [place] % (Auto) 7.5 Eos % (Auto) 0.4 L Baso % (Auto) 0.2 Neut # (Auto) 08565 H Lymph # (Auto) 500 L [place] # (Auto) 1700 H Eos # (Auto) 100 Baso # (Auto) 0 Sodium 132 L Potassium 4.5 Chloride 102 Carbon Dioxide 24 BUN 30 H Creatinine 1.05 Estimated GFR > 60 BUN/Creatinine Ratio 28.6 H Glucose 109 Lactate 0.9 Calcium 7.8 L Total Bilirubin 1.1 Conjugated Bilirubin 0.0 Unconjugated Bilirubin 1.0 AST 60 H ALT 66 H Alkaline Phosphatase 56 C-Reactive Protein 17.0 H Total Protein 5.5 L Albumin 3.0 L Globulin 2.5 Albumin/Globulin Ratio 1.2 Lipase Procalcitonin Urine Color Urine Appearance Urine pH Ur Specific [place] Urine Protein Urine Glucose (UA) Urine Ketones Urine Occult Blood Urine Nitrate Urine Bilirubin Urine Urobilinogen Ur Leukocyte Esterase Urine RBC Urine WBC Ur Squamous Epith Cells Urine Bacteria Ur Culture Indicated? A. baumannii (PCR) Venus albicans (PCR) C. glabrata (PCR) C. krusei (PCR) C. parapsilosis (PCR) C. tropicalis (PCR) SARS-CoV-2 (PCR) Enterobacteriac sp PCR E. cloacae complex PCR Enterococcus sp PCR E. coli (PCR) H. influenzae (PCR) Klebsiella oxytoca PCR Klebsiella pneumoniae List. monocytogenes PCR N. meningitidis (PCR) Proteus species (PCR) Serratia marcescens PCR Staphylococcus sp PCR Staph aureus (PCR) mecA-Methicil Res Gene Streptococcus sp PCR Group A Strep (PCR) Strep agalactiae (PCR) Strep pneumoniae (PCR) P. 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 Enlarged prostate Headache, migraine History of colon polyps Right hip pain Urinary retention Surgical History History of cataract extraction (~2004) History of nasal polypectomy (~1959) History of surgery (~2002) History of tonsillectomy and adenoidectomy Hx of cholecystectomy (1998) Hx of cystoscopy Hx of esophagogastroduodenoscopy (03/21/22) Hx of hemorrhoidectomy (08/2017) Hx of hernia repair (08/2017) Hx of left inguinal hernia repair (08/17/20) Hx of tooth extraction Hx of transurethral resection of prostate (~2015) Hx of wisdom tooth extraction (~1979) Family History Father Hypertension Prostate cancer Mother Diabetes mellitus Renal failure Sister Liver cancer Social History marital status: household members: spouse Smoking Status: Never smoker alcohol intake: current substance use type: does not use Assessment & Plan Assessment & Plan narrative: 1. Sepsis. Blood culture positive for Klebsiella. Antibiotics switched to Zosyn from Levaquin. Loading dose of Zosyn 4.5 g IV followed by regular dose of 3.375 g IV every 8 hours. 2. Concern for urinary tract infection. Culture remains pending. 3. GERD. Treating with pantoprazole 40 mg daily. Patient normally takes omeprazole. 4. Benign prostatic hypertrophy. Continue tamsulosin and oxybutynin. 5. History of migraine headaches. Have Imitrex available if needed. SCDs for DVT prophylaxis Code status: Full code. Substitute decision maker: Patient's named Yanira Way. Time Spent With Patient Critical Care time: I spent a total of [] minutes of critical care time on this patient's care today; this time is exclusive of procedural time. Quality VTE Deep Vein Thrombosis/Pulmonary Embolism Present on Admission: No
--- NOTE | 2022-08-24 09:12 | PC.NURSE ---
Day shift: Dr Sharma informed of lab blood culture results at this time ([id number]).
[2022-08-24] MEDS: PIPERACILLIN/TAZO 4.5 GM in SODIUM CHLORIDE 0.9% 100 ML IV (10:03)
[2022-08-24] MEDS: SODIUM CHLORIDE 0.9% 1,000 ML 100 ML IV ×2 (10:17→17:34)
--- NOTE | 2022-08-24 10:43 | CM.DANOTE ---
Discharge Assessment Note: Case reviewed, met with patient and spouse. Introduced self and role. Payer: [facility] and Medicare A only PCP: Dr Arambula 71 year old admitted last pm with sepsis, + blood and urine cultures, on Zosyn now. He underwent a urology procedure [address] Blanco and has an indwelling allan catheter. Patient lives in [place] with his supportive and is independent in ADLs. He is a current board commissioner. Plan: Discharge home when medically stable. Follow for needs. J Discharge Planning/Care Management Advanced directive, confirm from FAMILY Start: 08/24/22 01:21 Freq: Q24H Status: Complete Protocol: Document 08/24/22 01:21 AGW (Rec: 08/24/22 01:32 AGW [id number]) Advance Directive, confirm on record Time 01:32 Person contacted previosly saced into system Copy received Yes CM Discharge Assessment Start: 08/24/22 10:41 Freq: Status: Active Protocol: Document 08/24/22 10:42 (Rec: 08/24/22 10:43 [id number]) Discharge Planning Assessment Assigned Charge Machine Operator Ama Ortiz RN/DCP Advance Directives? Yes Advance Directives on File Yes History Provided By Patient Has Patient been admitted in last 30 No days? Prior Living Arrangements House Household Members spouse Type of transporation used prior to Drives own vehicle admit Independent with ADL's Yes Is patient alert and oriented? Yes Caregiver for Another No Barriers to Discharge No Discharge Plan Home Referrals Initiated None needed Review Status In Process Next Review Type Continued Stay Review
[2022-08-24] MEDS: SODIUM CHLORIDE 0.9% 500 ML 250 ML IV (13:41)
[2022-08-24] MEDS: PIPERACILLIN/TAZO 3.375 GM in SODIUM CHLORIDE 0.9% 100 ML IV (17:33)
[2022-08-25] VITALS (12 sets, daily range): BP systolic 115–147; BP diastolic 59–73; PULSE 55–90; RESP 16–20; TEMP 36.7–38.8; O2SAT 93–97
[2022-08-25] MEDS: PIPERACILLIN/TAZO 3.375 GM in SODIUM CHLORIDE 0.9% 100 ML IV ×2 (00:54→08:37)
[2022-08-25] MEDS: KETOROLAC 30 MG/ML VIAL 15 MG IV ×2 (02:41→08:36)
[2022-08-25] MEDS: ACETAMINOPHEN 325 MG TABLET 650 MG PO ×4 (02:43→21:28)
[2022-08-25] MEDS: SODIUM CHLORIDE 0.9% 1,000 ML 100 ML IV ×3 (02:44→23:57)
[2022-08-25] MEDS: PANTOPRAZOLE DR 40 MG TABLET PO (05:39)
--- NOTE | 2022-08-25 06:00 | DI.RAD.S_ITS ---
PROCEDURE: XR CHEST 1V INDICATIONS: shortness of breath TECHNIQUE: One view of the chest was acquired. COMPARISON: [facility], CR, XR CHEST 1V, 08/23/2022, 21:02. FINDINGS: Surgical changes and devices: None. Lungs and pleura: Slight appearance interstitial coarsening. Mediastinum: Mediastinal contours appear normal. Heart size is normal. Bones and chest wall: No suspicious bony lesions. Overlying soft tissues appear unremarkable. IMPRESSION: Slight appearance of interstitial coarsening. This could be reflective of edema or potentially developing interstitial pneumonia. Dictated by: Theresa Florentino M.D. on 08/25/2022 at 7:07 Approved by: Theresa Florentino M.D. on 08/25/2022 at 7:08
[2022-08-25] MEDS: FUROSEMIDE 20 MG/2 ML VIAL IV (06:13)
[2022-08-25 08:02] LABS: Add Manual Diff / Slide Review NO; Basophils Absolute Auto 0 /uL (0-100); Basophils Percent Auto 0.1 % (0-2); Eosinophils Absolute Auto 200 /uL (0-450); Eosinophils Percent Auto 1.6 % (2-4); Hematocrit 35.6 % (41-53); Hemoglobin 12.1 g/dL (13.5-17.5); Lymphocytes Absolute Auto 300 /uL (1100-4500); Mean Corpuscular HGB Conc 34.1 % (30-36); Mean Corpuscular Hemoglobin 31.4 PG (26-34); Mean Corpuscular Volume 92.1 fL (80-100); Monocytes Absolute Auto 1000 /uL (0-900); Monocytes Percent Auto 7.5 % (3-14); Neutrophils Absolute Auto 12100 /uL (1500-7000); Neutrophils Percent Auto 88.8 % (50-75); Platelet Count 120 X10^3/uL (150-400); Red Blood Cell Count 3.87 X10^6/uL (4.5-5.9); Red Cell Distribution Width 13.9 % (11.6-14.8); White Blood Cell Count 13.6 X10^3/uL (4.5-11.0)
[2022-08-25 08:22] LABS: Alanine Aminotransferase 59 IU/L (<50); Albumin 2.7 g/dL (3.5-5.0); Alkaline Phosphatase 98 U/L (38-126); Aspartate Aminotransferase 46 IU/L (17-59); BUN Creatinine Ratio 21.7 (6-22); Bilirubin Total 1.5 mg/dL (0.2-1.3); Bilirubin Unconjugated 0.6 mg/dL (0.0-1.1); Blood Urea Nitrogen 26 mg/dL (9-20); Calcium 7.8 mg/dL (8.4-10.2); Carbon Dioxide 22 mmol/L (22-32); Chloride 104 mmol/L (98-107); Estimated Glomerular Filt Rate > 60 mL/min (>60); Globulin 2.7 g/dL (1.7-4.1); Glucose 100 mg/dL (80-110); HEMOLYSIS < 15 (0-50); Potassium 3.8 mmol/L (3.4-5.1); Sodium 135 mmol/L (137-145); Total Protein 5.4 g/dL (6.3-8.2)
[2022-08-25 08:35] LABS: C-Reactive Protein Quant 17.7 mg/dL (<1.0)
[2022-08-25] MEDS: TAMSULOSIN 0.4 MG CAPSULE PO ×2 (08:37→21:28)
--- NOTE | 2022-08-25 08:55 | P.PN_ITS ---
Subjective Subjective Interval history: 71-year-old male nonsmoker with history of BPH and urologic procedure 1 week ago to help with a stricture at the neck of his bladder here by our Urology team presented with a chief complaint of gradually worsening fever, shaking chills and generalized weakness over the past day or 2 prior to presentation. Today the patient feels somewhat better had a low-grade temperature throughout the night. However normal this morning. Has no specific complaints other than just not feeling generally consistent with being sick. Exam Vital Signs (past 8 hours): - 08/25/22 02:41 08/25/22 02:43 08/25/22 03:02 Temperature 99.7 F H 99.7 F H 99.7 F H Pulse Rate 65 Respiratory Rate 20 Blood Pressure 147/69 H Pulse Oximetry 95 Oxygen Flow Rate 0 08/25/22 08:37 Temperature 98.8 F Pulse Rate 58 L Respiratory Rate 16 Blood Pressure 134/72 Pulse Oximetry 96 Oxygen Flow Rate 0 Oxygen Delivery Method Room Air Oxygen Flow Rate 0 Narrative Exam Narrative: General:? In no acute medical distress HEENT:? Pupils equal reactive to light extraocular movements normal neck is supple.? Trachea is midline.? Head is normocephalic Cardiovascular:? Heart sounds S1 and S2 with no extra sounds or murmurs.? Peripheral pulses equal bilaterally.? No pedal edema. Respiratory:? Adequate air entry throughout the lung burdick.? No wheezes or crackles. Gastrointestinal:? Abdomen is soft.? Nontender.? Bowel sounds normal. Musculoskeletal:? Able to move all extremities volitionally.? No localized strength deficits. Neuro:? Normal sensation of all extremities.? Skin:? No lesions or rashes. Psych:? Normal mood and affect.? Oriented x3. Objective Labs Result Diagrams: 08/25/22 07:20 08/25/22 07:20 Labs: Laboratory Results - last 24 hr 08/23/22 08/25/22 08/25/22 20:44 07:20 07:20 WBC 13.6 H RBC 3.87 L Hgb 12.1 L Hct 35.6 L MCV 92.1 MCH 31.4 MCHC 34.1 RDW 13.9 Plt Count 120 L Neut % (Auto) 88.8 H Lymph % (Auto) 2.0 L Churchill % (Auto) 7.5 Eos % (Auto) 1.6 L Baso % (Auto) 0.1 Neut # (Auto) 68078 H Lymph # (Auto) 300 L Churchill # (Auto) 1000 H Eos # (Auto) 200 Baso # (Auto) 0 Sodium 135 L Potassium 3.8 Chloride 104 Carbon Dioxide 22 BUN 26 H Creatinine 1.20 Estimated GFR > 60 BUN/Creatinine Ratio 21.7 Glucose 100 Calcium 7.8 L Total Bilirubin 1.5 H Conjugated Bilirubin 0.0 Unconjugated Bilirubin 0.6 AST 46 ALT 59 H Alkaline Phosphatase 98 C-Reactive Protein 17.7 H Total Protein 5.4 L Albumin 2.7 L Globulin 2.7 Albumin/Globulin Ratio 1.0 A. baumannii (PCR) Not detected Venus albicans (PCR) Not detected C. glabrata (PCR) Not detected C. krusei (PCR) Not detected C. parapsilosis (PCR) Not detected C. tropicalis (PCR) Not detected Enterobacteriac sp PCR Detected H E. cloacae complex PCR Not detected Enterococcus sp PCR Not detected E. coli (PCR) Not detected H. influenzae (PCR) Not detected Klebsiella oxytoca PCR Not detected Klebsiella pneumoniae Detected H List. monocytogenes PCR Not detected N. meningitidis (PCR) Not detected Proteus species (PCR) Not detected Serratia marcescens PCR Not detected Staphylococcus sp PCR Not detected Staph aureus (PCR) Not detected mecA-Methicil Res Gene Not Reportable Streptococcus sp PCR Not detected Group A Strep (PCR) Not detected Strep agalactiae (PCR) Not detected Strep pneumoniae (PCR) Not detected P. 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 Enlarged prostate Headache, migraine History of colon polyps Right hip pain Urinary retention Surgical History History of cataract extraction (~2004) History of nasal polypectomy (~1959) History of surgery (~2002) History of tonsillectomy and adenoidectomy Hx of cholecystectomy (1998) Hx of cystoscopy Hx of esophagogastroduodenoscopy (03/21/22) Hx of hemorrhoidectomy (08/2017) Hx of hernia repair (08/2017) Hx of left inguinal hernia repair (08/17/20) Hx of tooth extraction Hx of transurethral resection of prostate (~2015) Hx of wisdom tooth extraction (~1979) Family History Father Hypertension Prostate cancer Mother Diabetes mellitus Renal failure Sister Liver cancer Social History marital status: household members: spouse Smoking Status: Never smoker alcohol intake: current substance use type: does not use Assessment & Plan Assessment & Plan narrative: 1. Sepsis.? Blood culture positive for Klebsiella.? Sensitivity pending. Antibiotics switched to Zosyn from Levaquin yesterday.? Loading dose of Zosyn 4.5 g IV given yesterday followed by regular dose of 3.375 g IV every 8 hours. Repeat blood cultures ordered. 2. Concern for urinary tract infection.? Culture positive with Klebsiella similar to blood culture. Sensitivity pending 3. GERD.? Treating with pantoprazole 40 mg daily.? Patient normally takes omeprazole. 4. Benign prostatic hypertrophy.? Continue tamsulosin and oxybutynin. 5. History of migraine headaches.? Have Imitrex available if needed. 6. Ketorolac initiated yesterday for both general discomfort and fever control. We will discontinue this and can start Lovenox for prophylaxis for DVT. 7. Mobilization. Physical therapy to mobilize. Follow labs and clinically. SCDs for DVT prophylaxis, will start Lovenox today. Code status:? Full code. Substitute decision maker:? Patient's named Yanira Way. Time Spent With Patient Critical Care time: I spent a total of [] minutes of critical care time on this patient's care today; this time is exclusive of procedural time. Quality VTE Deep Vein Thrombosis/Pulmonary Embolism Present on Admission: No
--- NOTE | 2022-08-25 11:30 | PT.IIE ---
Current Diagnoses Sepsis, unspecified organism (08/23/22) Shortness of breath (08/23/22) Surgical History (Last Reviewed 08/23/22 @ 23:15 by Alexis Burnett MD) History of cataract extraction (~2004) History of nasal polypectomy (~1959) History of surgery (~2002) History of tonsillectomy and adenoidectomy Hx of cholecystectomy (1998) Hx of cystoscopy Hx of esophagogastroduodenoscopy (03/21/22) Hx of hemorrhoidectomy (08/2017) Hx of hernia repair (08/2017) Hx of left inguinal hernia repair (08/17/20) Hx of tooth extraction Hx of transurethral resection of prostate (~2015) Hx of wisdom tooth extraction (~1979) Medical History (Last Reviewed 08/23/22 @ 23:15 by Alexis Burnett MD) 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 BPH w urinary obs/LUTS 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 Enlarged prostate Headache, migraine History of colon polyps Right hip pain Urinary retention Physical Therapy Inpatient Evaluation/Re-Eval M1 PT/OT-IP Prior Functional Status Start: 08/25/22 12:53 Freq: NEEDED Status: Active Protocol: Document 08/25/22 11:30 AB (Rec: 08/25/22 13:02 AB [email or web address]) Medical Review Prior Functional Status Medical History Reviewed Yes Communication able to make needs known Mobility and Gait pt stated that he is independent with all mobilities and ambulation without AD Social History Household Members spouse Living Arrangements House Number of Floors (Floors) Two Floors Number of Stairs To Enter/Railing? 2 steps to enter with wide rails 15 steps R rail ascending to bedroom level Home Environment High Toilet,Walk in Shower, Built-In Shower Seat Home Equipment Hand Held Shower M2 PT-IP Current Condition Start: 08/25/22 12:53 Freq: NEEDED Status: Active Protocol: Document 08/25/22 11:30 AB (Rec: 08/25/22 13:02 AB [email or web address]) Physical Therapy Current Condition Current Condition Evaluation Date 08/25/22 Treatment Diagnosis UTI; sepsis; difficulty in walking Onset Date 08/23/22 M3 PT-IP Subjective Start: 08/25/22 12:53 Freq: NEEDED Status: Active Protocol: Document 08/25/22 11:30 AB (Rec: 08/25/22 13:02 AB [email or web address]) Subjective Physical Therapy Visit Type Type Initial Evaluation Visit Start Time 11:30 Visit Stop Time 11:55 Total Visit Minutes 25 Number of TITLE I PARAPROFESSIONAL Visits 0 Physical Therapy Visit Comments Patient Comments agreeable to do PT Therapy Pain Assessment Pain Present Pain Present Denied Pain M4 PT-IP Mobility and Gait Start: 08/25/22 12:53 Freq: NEEDED Status: Active Protocol: Document 08/25/22 11:30 AB (Rec: 08/25/22 13:02 AB [email or web address]) PT-Bed Mobility Assessment Supine to Sit Supine to Sit Standby Assistance PT-Transfer Assessment Sit to and From Stand Sit to and from Stand Standby Assistance Equipment Transfer Assistive Device Gait Belt,Front Wheeled Walker Orthotic/Prosthetic Devices or Brace: No Transfers Transfer Destination Chair Transfer Technique ambulated Transfer Ability Level of Assist Standby Assistance,Contact Guard Assistance,1 Person Assistance,Use of Upper Extremities Comments Mobility Comments completed supine to sit SBA. completed sit to stand SBA and ambulated in room using W SBA to CGA ~ 50 ft. presents with antalgic gait and initial unsteadiness but improved during ambulation. pt sat on chair and rested. agreed to ambulate without AD and completed in room ~ 20 ft SBA. pt agreed to sit on the chair . positioned. call light and table placed within reach. Gait Assessment Gait Gait Assistance Required: Standby Assistance,Contact Guard Assist Distance (Feet) 50 Able to Maintain Weight Bearing Status Yes During Gait Assistive Devices Assistive Device None,Gait Belt,Front Wheeled Walker Orthotic/Prosthetic Devices or Brace: No Gait Deviations General Gait Pattern Antalgic,Decreased Stride Length,Decreased Feet Clearance Factors Limiting Gait Function Factors Limiting Gait Function Decreased Activity Tolerance, Decreased Strength PT-Balance Assessment Sitting Balance and Reactions Static Sitting Balance Ability Normal Dynamic Sitting Balance Ability Normal Standing Balance and Reactions Static Standing Balance Ability Good Dynamic Standing Balance Ability Fair Device Used without AD M5 PT-IP Objective Assessments Start: 08/25/22 12:53 Freq: NEEDED Status: Active Protocol: Document 08/25/22 11:30 AB (Rec: 08/25/22 13:02 AB [id number]) Orientation Orientation/Cognition Level of Alertness Alert Orientation Name,Place,Situation Language Function Ability No Deficits Noted Safety Awareness Understands Safety Issues Memory Description No Deficits Noted Gross Range of Motion Lower Extremity ROM Assessment Within Functional Limits Strength Lower Extremity Strength Assessment Within Functional Limits Coordination Assessment Gross Coordination Gross Coordination WNL Sensation Assessment Sensation Gross Sensation WNL Muscle Tone Muscle Tone WNL Yes M6 PT-IP Treatment Start: 08/25/22 12:53 Freq: NEEDED Status: Active Protocol: Document 08/25/22 11:30 AB (Rec: 08/25/22 13:02 AB [email or web address]) Physical Therapy Treatment Education Education Provided Safety M7 PT-IP Assessment and Plan Start: 08/25/22 12:53 Freq: NEEDED Status: Active Protocol: Document 08/25/22 11:30 AB (Rec: 08/25/22 13:02 AB [email or web address]) PT Summary Assessment and Plan Potential Rehabilitation Potential Good Status of Condition at Evaluation Stable Summary Impairments Pain,ROM,Strength,Balance,Bed Mobility,Transfers,Gait, Activity Tolerance Assessment Summary pt requiring SBA to CGA with mobility using FWW. Assessed ambulation without AD SBA. pt presents with decrease activity tolerance affecting independence. pt plans to go home with spouse to assist him . will need to complete stair climbing training prior to d/ c. Goals Bed Mobility Goal Independent Transfer Goal Independent Gait Goal Independent Gait Distance 200 Other Goals up/down 15 steps R rail ascending mod I Days to Meet Goals 5 Frequency of Treatment Frequency Of Treatment Once a Day Treatment Plan Physical Therapy Treatment Plan Bed Mobility Training,Transfer Training,Gait Training, Therapeutic Exercise,Balance Retraining,Discharge Planning, Hot or Cold Pack,Neuromuscular Re-ed,Coordination Retraining Recommendations To Nursing Amount of Assist Needed 1 Person Assist Discharge Recommendations PT Discharge Recommendations Home with Assistance Transportation Needs at Discharge Private Vehicle
[2022-08-25] MEDS: cefTRIAXone 2,000 MG in SODIUM CHLORIDE 0.9% 100 ML 200 MG IV (12:58)
--- NOTE | 2022-08-25 18:07 | PC.NURSE ---
Pt ambulated and walked with RN escort with IV in tow and portable SPO2 monitor on finger. Pt returned to room and felt cold. Warm blanket given and temperature checked Temperature of 100.2 noted. Pt given Tylenol Per JAN. Pt fever rechecked 30 minutes later and reduced to 99.1. Pt denies pain or nausea at this time.
[2022-08-26] VITALS (12 sets, daily range): BP systolic 127–160; BP diastolic 70–85; PULSE 64–77; RESP 18–20; TEMP 36.9–38.7; O2SAT 94–98
[2022-08-26 06:37] LABS: Add Manual Diff / Slide Review NO; Basophils Absolute Auto 0 /uL (0-100); Basophils Percent Auto 0.4 % (0-2); Eosinophils Absolute Auto 100 /uL (0-450); Eosinophils Percent Auto 1.3 % (2-4); Hematocrit 36.6 % (41-53); Hemoglobin 12.6 g/dL (13.5-17.5); Lymphocytes Absolute Auto 300 /uL (1100-4500); Mean Corpuscular HGB Conc 34.5 % (30-36); Mean Corpuscular Hemoglobin 31.4 PG (26-34); Monocytes Absolute Auto 800 /uL (0-900); Monocytes Percent Auto 9.6 % (3-14); Neutrophils Absolute Auto 7300 /uL (1500-7000); Neutrophils Percent Auto 85.7 % (50-75); Platelet Count 114 X10^3/uL (150-400); Red Blood Cell Count 4.02 X10^6/uL (4.5-5.9); Red Cell Distribution Width 14.2 % (11.6-14.8); White Blood Cell Count 8.5 X10^3/uL (4.5-11.0)
[2022-08-26 06:43] LABS: Alanine Aminotransferase 53 IU/L (<50); Albumin 2.8 g/dL (3.5-5.0); Alkaline Phosphatase 145 U/L (38-126); Aspartate Aminotransferase 42 IU/L (17-59); BUN Creatinine Ratio 14.3 (6-22); Bilirubin Total 1.2 mg/dL (0.2-1.3); Blood Urea Nitrogen 13 mg/dL (9-20); Calcium 7.9 mg/dL (8.4-10.2); Carbon Dioxide 21 mmol/L (22-32); Chloride 106 mmol/L (98-107); Estimated Glomerular Filt Rate > 60 mL/min (>60); Globulin 2.8 g/dL (1.7-4.1); Glucose 96 mg/dL (80-110); HEMOLYSIS < 15 (0-50); Potassium 3.7 mmol/L (3.4-5.1); Sodium 136 mmol/L (137-145); Total Protein 5.6 g/dL (6.3-8.2)
[2022-08-26 07:04] LABS: Procalcitonin 17.6 ng/mL (<0.5)
[2022-08-26] MEDS: ACETAMINOPHEN 325 MG TABLET 650 MG PO ×2 (07:31→20:03)
[2022-08-26] MEDS: lisinopriL 5 MG TABLET PO (08:27)
[2022-08-26] MEDS: TAMSULOSIN 0.4 MG CAPSULE PO ×2 (08:27→20:03)
[2022-08-26] MEDS: ENOXAPARIN 40 MG/0.4 ML SYRINGE SUBCUT (08:28)
--- NOTE | 2022-08-26 09:01 | PM.PN.1 ---
Subjective Subjective Interval history: 71-year-old male nonsmoker with history of BPH and urologic procedure 1 week ago to help with a stricture at the neck of his bladder here by our Urology team presented with a chief complaint of gradually worsening fever, shaking chills and generalized weakness over the past day or 2? prior to presentation. History afternoon felt better however then spiked a temperature in the evening registered at 100.2F. Today he is more tired. Insert both his and his 's questions in regards to his care. Exam Vital Signs (past 8 hours): - 08/26/22 04:22 08/26/22 05:34 08/26/22 07:31 Temperature 98.4 F 99.0 F 100.2 F H Pulse Rate 76 Respiratory Rate 18 Blood Pressure 156/85 H Pulse Oximetry 94 Oxygen Flow Rate 0 08/26/22 07:54 08/26/22 08:11 08/26/22 08:27 Temperature 100.4 F H 99.9 F H Pulse Rate 76 76 Respiratory Rate 18 Blood Pressure 160/83 H 160/83 H Pulse Oximetry 98 Oxygen Flow Rate 0 Oxygen Delivery Method Room Air Oxygen Flow Rate 0 Narrative Exam Narrative: General:? In no acute medical distress. Appears fatigued. HEENT:? Trachea is midline.? Head is normocephalic Cardiovascular:? Heart sounds S1 and S2 with no extra sounds or murmurs.? Peripheral pulses equal bilaterally.? No pedal edema. Respiratory:? Adequate air entry throughout the lung burdick.? No wheezes or crackles. Gastrointestinal:? Abdomen is soft.? Nontender.? Bowel sounds normal. Musculoskeletal:? Able to move all extremities volitionally.? No localized strength deficits. Neuro:? Normal sensation of all extremities.? Skin:? No lesions or rashes. Psych:? Normal mood and affect.? Oriented x3. Objective Labs Result Diagrams: 08/26/22 06:07 08/26/22 06:07 Labs: Laboratory Results - last 24 hr 08/26/22 08/26/22 06:07 06:07 WBC 8.5 RBC 4.02 L Hgb 12.6 L Hct 36.6 L MCV 91.0 MCH 31.4 MCHC 34.5 RDW 14.2 Plt Count 114 L Neut % (Auto) 85.7 H Lymph % (Auto) 3.0 L Henderson % (Auto) 9.6 Eos % (Auto) 1.3 L Baso % (Auto) 0.4 Neut # (Auto) 7300 H Lymph # (Auto) 300 L Henderson # (Auto) 800 Eos # (Auto) 100 Baso # (Auto) 0 Sodium 136 L Potassium 3.7 Chloride 106 Carbon Dioxide 21 L BUN 13 Creatinine 0.91 Estimated GFR > 60 BUN/Creatinine Ratio 14.3 Glucose 96 Calcium 7.9 L Total Bilirubin 1.2 AST 42 ALT 53 H Alkaline Phosphatase 145 H Total Protein 5.6 L Albumin 2.8 L Globulin 2.8 Albumin/Globulin Ratio 1.0 Procalcitonin 17.6 H PFSH Medical History 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 BPH w urinary obs/LUTS 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 Enlarged prostate Headache, migraine History of colon polyps Right hip pain Urinary retention Surgical History History of cataract extraction (~2004) History of nasal polypectomy (~1959) History of surgery (~2002) History of tonsillectomy and adenoidectomy Hx of cholecystectomy (1998) Hx of cystoscopy Hx of esophagogastroduodenoscopy (03/21/22) Hx of hemorrhoidectomy (08/2017) Hx of hernia repair (08/2017) Hx of left inguinal hernia repair (08/17/20) Hx of tooth extraction Hx of transurethral resection of prostate (~2015) Hx of wisdom tooth extraction (~1979) Family History Father Hypertension Prostate cancer Mother Diabetes mellitus Renal failure Sister Liver cancer Social History marital status: household members: spouse Smoking Status: Never smoker alcohol intake: current substance use type: does not use Assessment & Plan Assessment & Plan narrative: 1. Sepsis.? Blood culture positive for Klebsiella.? Sensitivity pending.? Antibiotics switched to Zosyn from Levaquin yesterday.? Loading dose of Zosyn 4.5 g IV given yesterday followed by regular dose of 3.375 g IV every 8 hours.? Repeat blood cultures results still pending. Initial blood cultures positive for Klebsiella and another Gram-negative bacilli which has not been identified as of yet. Based on sensitivities to the Klebsiella his antibiotics were switched to ceftriaxone 2 g IV daily yesterday. Today's of her stay that his white blood count is normal at 8.5. Procalcitonin has been greater than 17 and will follow tomorrow to track progress. 2. Concern for urinary tract infection.? Culture positive with Klebsiella similar to blood culture.? Sensitivity sensitivity the same as for blood culture. 3. GERD.? Treating with pantoprazole 40 mg daily.? Patient normally takes omeprazole. 4. Benign prostatic hypertrophy.? Continue tamsulosin and oxybutynin. 5. History of migraine headaches.? Have Imitrex available if needed. 6. Ketorolac was initiated for both general discomfort and fever control.? Was discontinued. 7. Mobilization.? Physical therapy to mobilize. 8. Will pressure elevated at 160/83. Initiate lisinopril 5 mg daily. Follow labs and clinically. SCDs for DVT prophylaxis, will start Lovenox today. Code status:? Full code. Substitute decision maker:? Patient's named Yanira Way. Time Spent With Patient Critical Care time: I spent a total of [] minutes of critical care time on this patient's care today; this time is exclusive of procedural time. Quality VTE Deep Vein Thrombosis/Pulmonary Embolism Present on Admission: No
--- NOTE | 2022-08-26 11:09 | PT.IPTN ---
Current Diagnoses Sepsis, unspecified organism (08/23/22) Shortness of breath (08/23/22) Physical Therapy Treatment Note M2 PT-IP Current Condition Start: 08/25/22 12:53 Freq: NEEDED Status: Active Protocol: Document 08/25/22 11:30 AB (Rec: 08/25/22 13:02 AB [id number]) Physical Therapy Current Condition Current Condition Evaluation Date 08/25/22 Treatment Diagnosis UTI; sepsis; difficulty in walking Onset Date 08/23/22 M3 PT-IP Subjective Start: 08/25/22 12:53 Freq: NEEDED Status: Active Protocol: Document 08/26/22 10:56 KS (Rec: 08/26/22 12:26 KS [id number]) Subjective Physical Therapy Visit Type Type Treatment Note Visit Start Time 10:56 Visit Stop Time 11:09 Total Visit Minutes 13 Number of HEARING CONSULTANT Visits 1 Physical Therapy Visit Comments Patient Comments agreeable to do PT M4 PT-IP Mobility and Gait Start: 08/25/22 12:53 Freq: NEEDED Status: Active Protocol: Document 08/26/22 10:56 KS (Rec: 08/26/22 12:26 KS [id number]) PT-Bed Mobility Assessment Supine to Sit Supine to Sit Standby Assistance Sit to Supine Sit to Supine Standby Assistance Scooting Scooting to Edge of Bed Standby Assistance PT-Transfer Assessment Sit to and From Stand Sit to and from Stand Standby Assistance Equipment Transfer Assistive Device Gait Belt,Front Wheeled Walker Orthotic/Prosthetic Devices or Brace: No Transfers Transfer Destination Bed Transfer Technique ambulated Transfer Ability Level of Assist Standby Assistance,Contact Guard Assistance,1 Person Assistance,Use of Upper Extremities Comments Mobility Comments Pt in bed upon arrival, reporting fatigue but agreeable to mobilize. Pt SBA for sup<>sit and scooting EOB as well as sit<>stand w/ FWW. Pt ambulated ~50 ft w/ FWW and then trialed ambulation w/o FWW and ambulated additional 50 ft w/o AD SBA to CGA w/o LOB. Pt states he does not feel as winded as yesterday and is improving. Reviewed LE exercises in bed to promote blood flow and strengthening. Pt left in bed w/ SCDs on and all needs in reach. Gait Assessment Gait Gait Assistance Required: Standby Assistance,Contact Guard Assist Distance (Feet) 100 Able to Maintain Weight Bearing Status Yes During Gait Assistive Devices Assistive Device None,Gait Belt,Front Wheeled Walker Orthotic/Prosthetic Devices or Brace: No Gait Deviations General Gait Pattern Antalgic,Decreased Stride Length,Decreased Feet Clearance Factors Limiting Gait Function Factors Limiting Gait Function Decreased Activity Tolerance, Decreased Strength Comments Gait Comments Please refer to mobility section for details. Stair Climbing Assessment Comments Stair Climbing Comments Pt agreeable to assess tomorrow but feeling too fatigued today. PT-Balance Assessment Sitting Balance and Reactions Static Sitting Balance Ability Normal Dynamic Sitting Balance Ability Normal Standing Balance and Reactions Static Standing Balance Ability Good Dynamic Standing Balance Ability Fair Device Used without AD M5 PT-IP Objective Assessments Start: 08/25/22 12:53 Freq: NEEDED Status: Active Protocol: Document 08/25/22 11:30 AB (Rec: 08/25/22 13:02 AB [id number]) Orientation Orientation/Cognition Level of Alertness Alert Orientation Name,Place,Situation Language Function Ability No Deficits Noted Safety Awareness Understands Safety Issues Memory Description No Deficits Noted Gross Range of Motion Lower Extremity ROM Assessment Within Functional Limits Strength Lower Extremity Strength Assessment Within Functional Limits Coordination Assessment Gross Coordination Gross Coordination WNL Sensation Assessment Sensation Gross Sensation WNL Muscle Tone Muscle Tone WNL Yes M6 PT-IP Treatment Start: 08/25/22 12:53 Freq: NEEDED Status: Active Protocol: Document 08/26/22 10:56 KS (Rec: 08/26/22 12:26 KS [id number]) Physical Therapy Treatment Exercises Exercises Ankle Pumps,Gluteal Sets,Quad Sets,Heel Slides,Straight Leg Raises Education Education Provided Safety M7 PT-IP Assessment and Plan Start: 08/25/22 12:53 Freq: NEEDED Status: Active Protocol: Document 08/26/22 10:56 KS (Rec: 08/26/22 12:26 KS [id number]) PT Summary Assessment and Plan Potential Rehabilitation Potential Good Summary Impairments Pain,ROM,Strength,Balance,Bed Mobility,Transfers,Gait, Activity Tolerance Progress Towards Goals Progressing Toward Goals Assessment Summary Pt SBA to CGA throughout treatment. Ambulated w/ and w/ o FWW today, 50 ft each and had no LOB. Feels he is getting stronger but overall fatigued still. Pt wanting to return home w/ spouse and is agreeable to perform stair training prior to d/c. Goals Bed Mobility Goal Independent Transfer Goal Independent Gait Goal Independent Gait Distance 200 Other Goals up/down 15 steps R rail ascending mod I Days to Meet Goals 5 Frequency of Treatment Frequency Of Treatment Once a Day Treatment Plan Physical Therapy Treatment Plan Bed Mobility Training,Transfer Training,Gait Training, Therapeutic Exercise,Balance Retraining,Discharge Planning, Hot or Cold Pack,Neuromuscular Re-ed,Coordination Retraining Recommendations To Nursing Amount of Assist Needed 1 Person Assist Discharge Recommendations PT Discharge Recommendations Home with Assistance Transportation Needs at Discharge Private Vehicle
[2022-08-26] MEDS: cefTRIAXone 2,000 MG in SODIUM CHLORIDE 0.9% 100 ML 200 MG IV (12:02)
[2022-08-27] VITALS (9 sets, daily range): BP systolic 126–166; BP diastolic 73–87; PULSE 54–67; RESP 16–19; TEMP 36.8–37.6; O2SAT 94–97
--- NOTE | 2022-08-27 03:14 | PC.NURSE ---
Pt is AxOx4, independent and cooperative. VSS except T-101.7f at the beginning of shift so PRN Tylenol PO given. T went down 100.5F after an hour. Pena is draining well; clear and yellow urine. Pt slept well all night. No other changes. Continue monitor.
[2022-08-27] MEDS: SUMAtriptan 25 MG TABLET 100 MG PO ×2 (04:11→17:58)
[2022-08-27] MEDS: ACETAMINOPHEN 325 MG TABLET 650 MG PO ×3 (04:18→21:53)
[2022-08-27] MEDS: PANTOPRAZOLE DR 40 MG TABLET PO (06:04)
[2022-08-27] MEDS: TAMSULOSIN 0.4 MG CAPSULE PO ×2 (10:00→21:52)
[2022-08-27] MEDS: ENOXAPARIN 40 MG/0.4 ML SYRINGE SUBCUT (10:00)
[2022-08-27 10:05] LABS: Add Manual Diff / Slide Review NO; Basophils Absolute Auto 0 /uL (0-100); Basophils Percent Auto 0.6 % (0-2); Eosinophils Absolute Auto 100 /uL (0-450); Eosinophils Percent Auto 1.6 % (2-4); Hematocrit 39.8 % (41-53); Hemoglobin 13.6 g/dL (13.5-17.5); Lymphocytes Absolute Auto 600 /uL (1100-4500); Lymphocytes Percent Auto 9.4 % (25-40); Mean Corpuscular HGB Conc 34.1 % (30-36); Mean Corpuscular Hemoglobin 31.1 PG (26-34); Mean Corpuscular Volume 91.1 fL (80-100); Monocytes Absolute Auto 900 /uL (0-900); Monocytes Percent Auto 12.9 % (3-14); Neutrophils Absolute Auto 5200 /uL (1500-7000); Neutrophils Percent Auto 75.5 % (50-75); Platelet Count 120 X10^3/uL (150-400); Red Blood Cell Count 4.36 X10^6/uL (4.5-5.9); Red Cell Distribution Width 14.1 % (11.6-14.8); White Blood Cell Count 6.9 X10^3/uL (4.5-11.0)
[2022-08-27] MEDS: lisinopriL 5 MG TABLET PO (10:07)
[2022-08-27 10:24] LABS: Alanine Aminotransferase 46 IU/L (<50); Albumin 3.1 g/dL (3.5-5.0); Alkaline Phosphatase 165 U/L (38-126); Aspartate Aminotransferase 31 IU/L (17-59); BUN Creatinine Ratio 11.9 (6-22); Bilirubin Total 0.7 mg/dL (0.2-1.3); Blood Urea Nitrogen 10 mg/dL (9-20); Calcium 8.5 mg/dL (8.4-10.2); Carbon Dioxide 23 mmol/L (22-32); Chloride 104 mmol/L (98-107); Estimated Glomerular Filt Rate > 60 mL/min (>60); Globulin 3.1 g/dL (1.7-4.1); Glucose 141 mg/dL (80-110); HEMOLYSIS < 15 (0-50); Potassium 3.6 mmol/L (3.4-5.1); Sodium 138 mmol/L (137-145); Total Protein 6.2 g/dL (6.3-8.2)
[2022-08-27 10:39] LABS: Procalcitonin 9.02 ng/mL (<0.5)
--- NOTE | 2022-08-27 11:21 | PT.IPTN ---
Current Diagnoses Sepsis, unspecified organism (08/23/22) Shortness of breath (08/23/22) Physical Therapy Treatment Note M2 PT-IP Current Condition Start: 08/25/22 12:53 Freq: NEEDED Status: Active Protocol: Document 08/25/22 11:30 AB (Rec: 08/25/22 13:02 AB [id number]) Physical Therapy Current Condition Current Condition Evaluation Date 08/25/22 Treatment Diagnosis UTI; sepsis; difficulty in walking Onset Date 08/23/22 M3 PT-IP Subjective Start: 08/25/22 12:53 Freq: NEEDED Status: Active Protocol: Document 08/27/22 11:12 KS (Rec: 08/27/22 13:57 KS [id number]) Subjective Physical Therapy Visit Type Type Treatment Note Visit Start Time 11:12 Visit Stop Time 11:21 Total Visit Minutes 9 Number of HORSERADISH GRINDER Visits 2 Physical Therapy Visit Comments Patient Comments agreeable to do PT M4 PT-IP Mobility and Gait Start: 08/25/22 12:53 Freq: NEEDED Status: Active Protocol: Document 08/27/22 11:12 KS (Rec: 08/27/22 13:57 KS [id number]) PT-Transfer Assessment Sit to and From Stand Sit to and from Stand Independent Equipment Transfer Assistive Device Gait Belt Orthotic/Prosthetic Devices or Brace: No Transfers Transfer Destination Chair Transfer Technique ambulated Transfer Ability Level of Assist Independent,Standby Assistance Comments Mobility Comments Pt up ambulating independently in room upon arrival. Agreeable to stair training. Pt ambulated ~120 ft w/o AD SBA to stair well and ascended /descended 12 steps w/ unilateral rail step over step SBA. He then ambulated additional 120 ft back to room and sat in his chair. Pt feels safe to return home and feels he no longer needs inpatient PT. Gait Assessment Gait Gait Assistance Required: Independent,Standby Assistance Distance (Feet) 240 Able to Maintain Weight Bearing Status Yes During Gait Assistive Devices Assistive Device None,Gait Belt Orthotic/Prosthetic Devices or Brace: No Gait Deviations General Gait Pattern Decreased Stride Length, Decreased Feet Clearance Comments Gait Comments Please refer to mobility section for details. No LOB. Stair Climbing Assessment Evaluation Level of Assist On Stairs Standby Assistance,1 Person Assistance Devices Stair Climbing Assistive Devices Right Railing Technique/Endurance Stair Climbing Direction Ascend and Descend Stair Climbing Technique Step Over Step Number of Steps Climbed 12 Stair Climbing Set # Repetitions (reps) 1 Comments Stair Climbing Comments Pt able to ascend/descend 12 steps w/ R rail, step over step pattern w/ SBA. No rest breaks, LOB, or SOB. PT-Balance Assessment Sitting Balance and Reactions Static Sitting Balance Ability Normal Dynamic Sitting Balance Ability Normal Standing Balance and Reactions Static Standing Balance Ability Normal Dynamic Standing Balance Ability Good Device Used without AD M5 PT-IP Objective Assessments Start: 08/25/22 12:53 Freq: NEEDED Status: Active Protocol: Document 08/25/22 11:30 AB (Rec: 08/25/22 13:02 AB [id number]) Orientation Orientation/Cognition Level of Alertness Alert Orientation Name,Place,Situation Language Function Ability No Deficits Noted Safety Awareness Understands Safety Issues Memory Description No Deficits Noted Gross Range of Motion Lower Extremity ROM Assessment Within Functional Limits Strength Lower Extremity Strength Assessment Within Functional Limits Coordination Assessment Gross Coordination Gross Coordination WNL Sensation Assessment Sensation Gross Sensation WNL Muscle Tone Muscle Tone WNL Yes M6 PT-IP Treatment Start: 08/25/22 12:53 Freq: NEEDED Status: Active Protocol: Document 08/27/22 11:12 KS (Rec: 08/27/22 13:57 KS [id number]) Physical Therapy Treatment Education Education Provided Safety M7 PT-IP Assessment and Plan Start: 08/25/22 12:53 Freq: NEEDED Status: Active Protocol: Document 08/27/22 11:12 KS (Rec: 08/27/22 13:57 KS [id number]) PT Summary Assessment and Plan Potential Rehabilitation Potential Good Summary Impairments Pain,ROM,Strength,Balance,Bed Mobility,Transfers,Gait, Activity Tolerance Progress Towards Goals Progressing Toward Goals Assessment Summary Pt mobilizing independently in room w/ AD, ambulated 240 ft and ascended/descended 12 steps w/ one rail w/ step over step pattern. Pt feels physically safe and able to return home and feels he has no further needs from inpatient PT and would like to be d/c from PT services at this time. RN, PT, and DCP aware. Goals Bed Mobility Goal Independent Transfer Goal Independent Gait Goal Independent Gait Distance 200 Other Goals up/down 15 steps R rail ascending mod I Days to Meet Goals 5 Frequency of Treatment Frequency Of Treatment Once a Day Treatment Plan Physical Therapy Treatment Plan Bed Mobility Training,Transfer Training,Gait Training, Therapeutic Exercise,Balance Retraining,Discharge Planning, Hot or Cold Pack,Neuromuscular Re-ed,Coordination Retraining Recommendations To Nursing Amount of Assist Needed 1 Person Assist Discharge Recommendations PT Discharge Recommendations Home Transportation Needs at Discharge Private Vehicle
--- NOTE | 2022-08-27 11:35 | PC.NURSE ---
Addendum entered by Nils Villarreal R.N. 08/27/22 13:55: Pt continues alert and oriented. Up in room as needed independent. No overt c/o pain. Spoke of Dr. Guadalupe saying he would start PO abx. Spoke with DR. Guadalupe and he will write those orders. allan intact urine clearing. Original Note: Pt A&O, offers no overt c/o. Allan patent and intact. attentive at bedside.
--- NOTE | 2022-08-27 11:58 | CM.DPC ---
DCP Cont: Per MD, pt making progress and will be able to d/c on oral abx but continues to have fevers and not yet medically stable to discharge. Per RN, pt's supportive spouse bedside and pt cooperative with care and improving. Per PT, still recommending safe d/c home with spouse assist. Plan: SW to follow for plan of discharge to home via spouse POV and on oral abx and any further identified discharge planning needs. GAUDENCIO Adame
--- NOTE | 2022-08-27 13:54 | PM.PN.1 ---
Subjective Subjective Date Patient Seen: 08/27/22 Interval history: 71-year-old male nonsmoker with history of BPH and urologic procedure 1 week ago to help with a stricture at the neck of his bladder here by our Urology team presented with a chief complaint of gradually worsening fever, shaking chills and generalized weakness over the past day or 2? prior to presentation. He has a klebsiella bacteremia, sensitivites resulted today. His fever curve is improving, though his last fever was 10 pm yesterday which responded to tylenol. He remains weak but improving daily from malaise. Narrowed to oral antibiotics today. Exam Vital Signs (past 8 hours): - 08/27/22 06:10 08/27/22 07:27 08/27/22 10:07 Temperature 99.6 F 99.1 F Pulse Rate 63 54 L 54 L Respiratory Rate 18 16 Blood Pressure 165/85 H 158/87 H 158/87 H Pulse Oximetry 94 95 Oxygen Flow Rate 0 08/27/22 11:39 Temperature 98.8 F Pulse Rate 66 Respiratory Rate 16 Blood Pressure 126/73 Pulse Oximetry 97 Oxygen Flow Rate Oxygen Delivery Method Room Air Oxygen Flow Rate 0 Narrative Exam Narrative: General:? In no acute medical distress. Appears fatigued. HEENT:? Trachea is midline.? Head is normocephalic Cardiovascular:? Heart sounds S1 and S2 with no extra sounds or murmurs.? Peripheral pulses equal bilaterally.? No pedal edema. Respiratory:? Adequate air entry throughout the lung burdick.? No wheezes or crackles. Gastrointestinal:? Abdomen is soft.? Nontender.? Bowel sounds normal. Musculoskeletal:? Able to move all extremities volitionally.? No localized strength deficits. Neuro:? Normal sensation of all extremities.? Skin:? No lesions or rashes. Psych:? Normal mood and affect.? Oriented x3. Objective Labs Result Diagrams: 08/27/22 09:20 08/27/22 09:20 Labs: Laboratory Results - last 24 hr 08/27/22 08/27/22 09:20 09:20 WBC 6.9 RBC 4.36 L Hgb 13.6 Hct 39.8 L MCV 91.1 MCH 31.1 MCHC 34.1 RDW 14.1 Plt Count 120 L Neut % (Auto) 75.5 H Lymph % (Auto) 9.4 L [place] % (Auto) 12.9 Eos % (Auto) 1.6 L Baso % (Auto) 0.6 Neut # (Auto) 5200 Lymph # (Auto) 600 L [place] # (Auto) 900 Eos # (Auto) 100 Baso # (Auto) 0 Sodium 138 Potassium 3.6 Chloride 104 Carbon Dioxide 23 BUN 10 Creatinine 0.84 Estimated GFR > 60 BUN/Creatinine Ratio 11.9 Glucose 141 H Calcium 8.5 Total Bilirubin 0.7 AST 31 ALT 46 Alkaline Phosphatase 165 H Total Protein 6.2 L Albumin 3.1 L Globulin 3.1 Albumin/Globulin Ratio 1.0 Procalcitonin 9.02 H [facility] Medical History 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 BPH w urinary obs/LUTS 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 Enlarged prostate Headache, migraine History of colon polyps Right hip pain Urinary retention Surgical History History of cataract extraction (~2004) History of nasal polypectomy (~1959) History of surgery (~2002) History of tonsillectomy and adenoidectomy Hx of cholecystectomy (1998) Hx of cystoscopy Hx of esophagogastroduodenoscopy (03/21/22) Hx of hemorrhoidectomy (08/2017) Hx of hernia repair (08/2017) Hx of left inguinal hernia repair (08/17/20) Hx of tooth extraction Hx of transurethral resection of prostate (~2015) Hx of wisdom tooth extraction (~1979) Family History Father Hypertension Prostate cancer Mother Diabetes mellitus Renal failure Sister Liver cancer Social History marital status: household members: spouse Smoking Status: Never smoker alcohol intake: current substance use type: does not use Assessment & Plan Assessment & Plan narrative: 1. Sepsis secondary to Klebsiella bacteremia from urinary tract infection with hypotension, hyperbilirubinemia, and thrombocytopenia. - urine and blood cultures with Klebsiella. Initially on ceftriaxone with improving fever curve and procalcitonin will narrow to oral augmentin. Procalcitonin improved today, WBC now normal. - continue PT for weakness. SOFA score of 3. - will see if he continues to improve after transition to oral antibiotics, given fever last night can possibly discharge home once fever finally abates. 2. GERD.? Treating with pantoprazole 40 mg daily.? Patient normally takes omeprazole. 3. Benign prostatic hypertrophy.? Continue tamsulosin and oxybutynin. 4. History of migraine headaches.? Have Imitrex available if needed. 5. HTN - for HTN he was started on lisinopril with improvement today. Follow labs and clinically. SCDs, Lovenox Code status:? Full code. Substitute decision maker:? Patient's named Yanira Way. Time Spent With Patient Critical Care time: I spent a total of [] minutes of critical care time on this patient's care today; this time is exclusive of procedural time. Scores SOFA PaO2/FIO2: >=400 mmHg Platelets: < 150 Bilirubin: 1.2-1.9 mg/dL Hypotension: MAP < 70 mmHg Amina Coma Scale: 15 Renal: < 1.2 mg/dL SOFA Score: 3 Quality VTE Deep Vein Thrombosis/Pulmonary Embolism Present on Admission: No
[2022-08-27] MEDS: AMOXICILLIN/CLAV 875/125 MG 1 TAB PO ×2 (15:11→21:52)
[2022-08-28 00:18] VITALS: BP 131/80; PULSE 62; RESP 18; TEMP 36.9; O2SAT 96
--- NOTE | 2022-08-28 03:44 | PC.NURSE ---
Pt c/o headache 3/10 pain requesting tylenol, given and reassessed w/o pain. Pt explained that he had bladder surgery last week, was sent home w/ catheter. Rash on back is spreaded red dots across upper left side, denied itchiness. Pt has not slept well tonight, when staff checks he is mainly awake.
[2022-08-28] MEDS: PANTOPRAZOLE DR 40 MG TABLET PO (06:12)
[2022-08-28 06:16] VITALS: BP 153/78; PULSE 62; RESP 18; TEMP 36.7; O2SAT 96
[2022-08-28 07:35] VITALS: BP 166/84; PULSE 61; RESP 16; TEMP 37.3; O2SAT 96
--- NOTE | 2022-08-28 08:28 | PT-IP ANOTE ---
Per IND[employer]RIAL [employer] OPERATOR, pt has met PT goals and has requested discharge from acute PT. No further PT needs identified at this time. Pt will be safe to discharge home with assist once medically stable.
--- NOTE | 2022-08-28 09:13 | P.DS_ITS ---
History of Present Illness History of Present Illness Date Patient Seen: 08/28/22 Time Patient Seen: 09:13 Chief complaint: states is freezing, can't breathe Narrative: Per Dr. Burnett, 71-year-old male nonsmoker with history of BPH and urologic procedure 1 week ago to help with a stricture at the neck of his bladder here by our Urology team presents with a chief complaint of gradually worsening fever, shaking chills and generalized weakness over the past day or 2.? He is not dizzy nor weak or lightheaded.? He has no chest pain, shortness of breath or cough.? He presents with rigors, fever 103, elevated respiratory rate and heart rate and sepsis protocol was activated. Patient heart rate responded well with IV fluids and b lood pressures improved. When I saw the patient in the ER, looks more comfortable, rigors significantly improved. Patient denies any specific pain at this time. is present at bedside. Patient did not had any episodes of fevers or chills postprocedure for 5 days. Urine output is adequate till today. Patient does have some nausea but no vomiting. Discharge Providers Provider Date of admission: 08/23/22 23:00 Discharge Date: 08/28/22 Primary care physician: Edgar Arambula MD Consults: 08/25/22 09:07 Consult to Physical Therapy Evaluate & Treat Comment: Physician Instructions: Evaluate and Treat Discharge provider: Justice Guadalupe DO Summary Hospital Course Discharge Diagnosis: 1. Sepsis secondary to Klebsiella bacteremia from urinary tract? infection with hypotension, hyperbilirubinemia, and thrombocytopenia.? ?- urine and blood cultures with Klebsiella. Initially on ceftriaxone with improving fever curve and procalcitonin will narrow to oral augmentin. Procalcitonin improved today, WBC now normal. ?- continue PT for weakness. SOFA score of 3. ?- will see if he continues to improve after transition to oral antibiotics, given fever last night can possibly discharge home once fever finally abates. 2. GERD.? Treating with pantoprazole 40 mg daily.? Patient normally takes ome prazole. 3. Benign prostatic hypertrophy.? Continue tamsulosin and oxybutynin. 4. History of migraine headaches.? Have Imitrex available if needed. 5. HTN - for HTN he was started on lisinopril with improvement today. Time Spent with Patient Time spent: Greater than 30 minutes Exam Vital Signs (past 8 hours): - 08/28/22 06:16 08/28/22 07:35 Temperature 98.1 F 99.1 F Pulse Rate 62 61 Respiratory Rate 18 16 Blood Pressure 153/78 H 166/84 H Pulse Oximetry 96 96 Oxygen Flow Rate 0 0 Oxygen Delivery Method Room Air Oxygen Flow Rate 0 Narrative Exam Narrative: General:? In no acute medical distress. Appears fatigued. HEENT:? Trachea is midline.? Head is normocephalic Cardiovascular:? Heart sounds S1 and S2 with no extra sounds or murmurs.? Peripheral pulses equal bilaterally.? No pedal edema. Respiratory:? Adequate air entry throughout the lung burdick.? No wheezes or crackles. Gastrointestinal:? Abdomen is soft.? Nontender.? Bowel sounds normal. Musculoskeletal:? Able to move all extremities volitionally.? No localized strength deficits. Neuro:? Normal sensation of all extremities.? Skin:? No lesions or rashes. Psych:? Normal mood and affect.? Oriented x3. Objective Labs Result Diagrams: 08/27/22 09:20 08/27/22 09:20 Labs: Laboratory Results - last 24 hr 08/27/22 08/27/22 09:20 09:20 WBC 6.9 RBC 4.36 L Hgb 13.6 Hct 39.8 L MCV 91.1 MCH 31.1 MCHC 34.1 RDW 14.1 Plt Count 120 L Neut % (Auto) 75.5 H Lymph % (Auto) 9.4 L [place] % (Auto) 12.9 Eos % (Auto) 1.6 L Baso % (Auto) 0.6 Neut # (Auto) 5200 Lymph # (Auto) 600 L [place] # (Auto) 900 Eos # (Auto) 100 Baso # (Auto) 0 Sodium 138 Potassium 3.6 Chloride 104 Carbon Dioxide 23 BUN 10 Creatinine 0.84 Estimated GFR > 60 BUN/Creatinine Ratio 11.9 Glucose 141 H Calcium 8.5 Total Bilirubin 0.7 AST 31 ALT 46 Alkaline Phosphatase 165 H Total Protein 6.2 L Albumin 3.1 L Globulin 3.1 Albumin/Globulin Ratio 1.0 Procalcitonin 9.02 H PFSH Medical History 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 BPH w urinary obs/LUTS 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 Enlarged prostate Headache, migraine History of colon polyps Right hip pain Urinary retention Surgical History History of cataract extraction (~2004) History of nasal polypectomy (~1959) History of surgery (~2002) History of tonsillectomy and adenoidectomy Hx of cholecystectomy (1998) Hx of cystoscopy Hx of esophagogastroduodenoscopy (03/21/22) Hx of hemorrhoidectomy (08/2017) Hx of hernia repair (08/2017) Hx of left inguinal hernia repair (08/17/20) Hx of tooth extraction Hx of transurethral resection of prostate (~2015) Hx of wisdom tooth extraction (~1979) Family History Father Hypertension Prostate cancer Mother Diabetes mellitus Renal failure Sister Liver cancer Social History marital status: household members: spouse Smoking Status: Never smoker alcohol intake: current substance use type: does not use Discharge Plan Discharge Plan Patient Disposition: Home Provider Discharge Comment: You were admitted to the hospital with a urinary tract infection due to obstruction. This bacteria also entered your bloodstream. You improved with antibiotics, continue on antibiotics for another week. Rest at home. Follow up with urology as an outpatient for the allan catheter to see if this can be removed. Discharge orders & Medications Prescriptions: New lisinopril 5 mg Tablet 5 mg PO DAILY 30 Days Qty: 30 0RF amoxicillin-pot clavulanate 875-125 mg Tablet 1 tab PO BID 7 Days Qty: 14 0RF Continued sumatriptan succinate [Imitrex] 100 MG tablet 100 mg PO PRN PRN (Reason: Headache) Qty: 0 tamsulosin [Flomax] 0.4 MG capsule,extended release 24hr 0.4 mg PO BID Qty: 0 omeprazole 20 mg capsule,delayed release(DR/EC) 20 mg PO DAILY Qty: 90 3RF sulfacetamide sodium-sulfur 10-5 % (w/w) cleanser 1 applic topical BID Label Comments: WASH face TWICE DAILY niacin 500 mg tablet 500 mg PO BID flaxseed oil 1,000 mg capsule 1,000 mg PO DAILY Rx Instructions: administer with a meal cetirizine 10 mg Tablet 10 mg PO DAILY PRN (Reason: Allergy Symptoms) oxybutynin chloride 5 mg tablet 5 mg PO BID-TID PRN (Reason: bladder spasms) Qty: 30 0RF Follow up/Referrals: Edgar Arambula MD [Primary Care Provider] - Diet/Activity/Treatments Diet: Diet as Tolerated Activity: As tolerated Catheter: 2-way Allan Visit Report/Discharge Packet Instructions: Urinary Tract Infection, Sepsis Discharge Data Primary Care Provider: Edgar Arambula V Quality VTE Deep Vein Thrombosis/Pulmonary Embolism Present on Admission: No
[2022-08-28] MEDS: SUMAtriptan 25 MG TABLET 100 MG PO ×2 (09:17→14:51)
[2022-08-28] MEDS: lisinopriL 5 MG TABLET PO (09:18)
[2022-08-28] MEDS: TAMSULOSIN 0.4 MG CAPSULE PO ×2 (09:18→21:03)
[2022-08-28] MEDS: AMOXICILLIN/CLAV 875/125 MG 1 TAB PO (09:19)
[2022-08-28] MEDS: ENOXAPARIN 40 MG/0.4 ML SYRINGE SUBCUT (09:19)
[2022-08-28 10:53] LABS: COVID19 -Nasal RAPID Negative (Negative)
[2022-08-28 12:00] VITALS: BP 163/74; PULSE 63; RESP 18; TEMP 36.6; O2SAT 94
--- NOTE | 2022-08-28 13:24 | PC.NURSE ---
Pt had an episode of N/V. Provided wet washcloth to cool off. This SN asked the pt if he'd like something to help treat the nausea. Pt said yes, provider notified.
[2022-08-28] MEDS: ONDANSETRON 4 MG ODT SL (13:32)
--- NOTE | 2022-08-28 13:58 | CM.DPC ---
DCP Discharge Home Per MD, pt has been fever free and medically stable to d/c although pt hesitant about d/c from the hospital but no medical justification currently to remain in the hospital. Pt has been cleared by PT for safe return home with supportive spouse. Per RN, pt now with n/v and given Zofran and may d/c home tonight vs tomorrow pending pt needs. Plan: SW to follow for plan of home via spouse POV either tonight or tomorrow pending his n/v. GAUDENCIO Adame
--- NOTE | 2022-08-28 14:10 | PM.PN.1 ---
Subjective Subjective Date Patient Seen: 08/28/22 Interval history: Patient feels generalized malaise. He was discharged, but then developed nausea and started vomiting so discharge was cancelled. Exam Vital Signs (past 8 hours): - 08/28/22 06:16 08/28/22 07:35 08/28/22 12:00 Temperature 98.1 F 99.1 F 97.9 F Pulse Rate 62 61 63 Respiratory Rate 18 16 18 Blood Pressure 153/78 H 166/84 H 163/74 H Pulse Oximetry 96 96 94 Oxygen Flow Rate 0 0 0 Oxygen Delivery Method Room Air Oxygen Flow Rate 0 Narrative Exam Narrative: General:? In no acute distress. Appears fatigued. HEENT:? Trachea is midline.? Head is normocephalic Cardiovascular:? Heart sounds S1 and S2 with no extra sounds or murmurs.? Peripheral pulses equal bilaterally.? No pedal edema. Respiratory:? Adequate air entry throughout the lung burdick.? No wheezes or crackles. Gastrointestinal:? Abdomen is soft.? Nontender.? Bowel sounds normal. Musculoskeletal:? Able to move all extremities volitionally.? No localized strength deficits. Neuro:? Normal sensation of all extremities.? Skin:? No lesions or rashes. Psych:? Normal mood and affect.? Oriented x3. 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 Enlarged prostate Headache, migraine History of colon polyps Right hip pain Urinary retention Surgical History History of cataract extraction (~2004) History of nasal polypectomy (~1959) History of surgery (~2002) History of tonsillectomy and adenoidectomy Hx of cholecystectomy (1998) Hx of cystoscopy Hx of esophagogastroduodenoscopy (03/21/22) Hx of hemorrhoidectomy (08/2017) Hx of hernia repair (08/2017) Hx of left inguinal hernia repair (08/17/20) Hx of tooth extraction Hx of transurethral resection of prostate (~2015) Hx of wisdom tooth extraction (~1979) Family History Father Hypertension Prostate cancer Mother Diabetes mellitus Renal failure Sister Liver cancer Social History marital status: household members: spouse Smoking Status: Never smoker alcohol intake: current substance use type: does not use Assessment & Plan Assessment & Plan narrative: 1. Sepsis secondary to Klebsiella bacteremia from urinary tract infection with hypotension, hyperbilirubinemia, and thrombocytopenia. - urine and blood cultures with Klebsiella. Initially on ceftriaxone with improving fever curve and procalcitonin so was narrowed to oral augmentin. Procalcitonin improved and WBC normal. - continue PT for weakness. SOFA score of 3. - will see if he continues to improve after transition to oral antibiotics, given fever two nights ago and nausea today will continue to follow. - check CBC and procalcitonin again to see if change after switch to oral antibiotics. 2. GERD.? Treating with pantoprazole 40 mg daily.? Patient normally takes omeprazole. 3. Benign prostatic hypertrophy.? Continue tamsulosin and oxybutynin. 4. History of migraine headaches.? Have Imitrex available if needed. 5. HTN - for HTN he was started on lisinopril with improvement today. SCDs, Lovenox Code status:? Full code. Substitute decision maker:? Patient's named Yanira Way. Time Spent With Patient Critical Care time: I spent a total of [] minutes of critical care time on this patient's care today; this time is exclusive of procedural time. Quality VTE Deep Vein Thrombosis/Pulmonary Embolism Present on Admission: No
[2022-08-28] MEDS: OXYCODONE IR 5 MG TABLET PO (15:32)
[2022-08-28 16:00] VITALS: BP 130/81; PULSE 66; RESP 17; TEMP 36.7; O2SAT 95
[2022-08-28] MEDS: BUTALB/APAP/CAFFEINE 50/325/40 TABLET 1 EACH PO (16:05)
--- NOTE | 2022-08-28 16:08 | PC.NURSE ---
Pt states he is experiencing a migraine episode similar to what he had 4 years ago. Pt claims the oxycodone that was given did not change the level of pain, notified provider.
[2022-08-28 20:00] VITALS: BP 133/70; PULSE 61; RESP 17; TEMP 37.2; O2SAT 96
[2022-08-28] MEDS: CEFDINIR 300 MG CAPSULE PO (21:03)
--- NOTE | 2022-08-28 21:40 | PC.NURSE ---
Patient is alert and oriented. Breath sounds CTA with RA sat of 96%. HRR but bradycardic with rate in upper 50's. Denies nausea. BT present and is passing flatus. Indwelling catheter is patent; urine is clear yellow. Is independent with mobility. Declines use of SCD's and verbalizes understanding of DVT prevention. Denies pain. Fall risk score is low.
[2022-08-29] VITALS: BP 119/69; PULSE 58; RESP 19; TEMP 37.1; O2SAT 96
[2022-08-29 04:00] VITALS: BP 150/78; PULSE 59; RESP 18; TEMP 37.1; O2SAT 95
[2022-08-29] MEDS: SUMAtriptan 25 MG TABLET 100 MG PO (05:33)
[2022-08-29] MEDS: PANTOPRAZOLE DR 40 MG TABLET PO (06:33)
[2022-08-29 07:45] VITALS: BP 166/87; PULSE 62; RESP 17; TEMP 37.5; O2SAT 96
[2022-08-29 09:10] LABS: Hematocrit 39.2 % (41-53); Hemoglobin 13.7 g/dL (13.5-17.5); Mean Corpuscular Hemoglobin 31.5 PG (26-34); Mean Corpuscular Volume 89.9 fL (80-100); Platelet Count 221 X10^3/uL (150-400); Red Blood Cell Count 4.35 X10^6/uL (4.5-5.9); Red Cell Distribution Width 14.1 % (11.6-14.8); White Blood Cell Count 9.4 X10^3/uL (4.5-11.0)
[2022-08-29 09:14] VITALS: BP 166/87; PULSE 62
[2022-08-29] MEDS: CEFDINIR 300 MG CAPSULE PO (09:14)
[2022-08-29] MEDS: lisinopriL 5 MG TABLET PO (09:14)
[2022-08-29] MEDS: TAMSULOSIN 0.4 MG CAPSULE PO (09:14)
[2022-08-29] MEDS: ENOXAPARIN 40 MG/0.4 ML SYRINGE SUBCUT (09:14)
--- NOTE | 2022-08-29 09:20 | PM.DS.1 ---
History of Present Illness History of Present Illness Date Patient Seen: 08/29/22 Time Patient Seen: 10:00 Chief complaint: states is freezing, can't breathe Narrative: 71-year-old male nonsmoker with history of BPH and urologic procedure 1 week ago to help with a stricture at the neck of his bladder here by our Urology team presents with a chief complaint of gradually worsening fever, shaking chills and generalized weakness over the past day or 2.? He is not dizzy nor weak or lightheaded.? He has no chest pain, shortness of breath or cough.? He presents with rigors, fever 103, elevated respiratory rate and heart rate and sepsis protocol was activated.? Patient heart rate responded well with IV fluids and blood pressures improved.? When I saw the patient in the ER, looks more comfortable, rigors significantly improved.? Patient denies any specific pain at this time.? is present at bedside.? Patient did not had any episodes of fevers or chills postprocedure for 5 days.? Urine output is adequate till today.? Patient does have some nausea but no vomiting. Discharge Providers Provider Date of admission: 08/23/22 23:00 Discharge Date: 08/29/22 Primary care physician: Edgar Arambula MD Consults: 08/25/22 09:07 Consult to Physical Therapy Evaluate & Treat Comment: Physician Instructions: Evaluate and Treat Discharge provider: Jaiden Rabago DO Summary Hospital Course Discharge Diagnosis: 1. Sepsis secondary to Klebsiella bacteremia from urinary tract?infection with hypotension, hyperbilirubinemia, and thrombocytopenia.?Improved. - following outpatient cystoscopy and bladder stricture removal ?- urine and blood cultures with Klebsiella pneumoniae sensitive to cephalosporins and quinolones. Initially on ceftriaxone with improving fever and WBC, - will dc on po levaquin to complete 14 days - has f/u with Dr. Joseph urology in clinic for allan cath removal 2. GERD.? Treating with pantoprazole 40 mg daily.? Patient normally takes omeprazole. 3. Benign prostatic hypertrophy.? Continue tamsulosin and oxybutynin. 4. History of migraine headaches.?Given imitrex for migraine during admission. 5. HTN. Will defer to PCP about starting BP meds. Hospital Course: Admitted sepsis secondary to pyelonephritis and bacteremia from Klebsiella pneumonia likely secondary to recent outpatient urologic procedure. Started on IV rocephin and improved clinically. Culture sensitivities returned and sensitive to levaquin so patient discharged to complete 14 days of antibiotics. Time Spent with Patient Time spent: Greater than 30 minutes Exam Vital Signs (past 8 hours): - 08/29/22 04:00 08/29/22 04:00 08/29/22 07:45 Temperature 98.7 F 99.5 F Pulse Rate 59 L 62 Respiratory Rate 18 17 Blood Pressure 150/78 H 166/87 H Pulse Oximetry 95 96 Oxygen Flow Rate 0 0 08/29/22 09:14 Temperature Pulse Rate 62 Respiratory Rate Blood Pressure 166/87 H Pulse Oximetry Oxygen Flow Rate Oxygen Delivery Method Room Air Oxygen Flow Rate 0 Narrative Exam Narrative: General:? In no acute distress. HEENT:? Trachea is midline.? Head is normocephalic Cardiovascular:? Heart sounds S1 and S2 with no extra sounds or murmurs.? Peripheral pulses equal bilaterally.? No pedal edema. Respiratory:? Adequate air entry throughout the lung burdick.? No wheezes or crackles. Gastrointestinal:? Abdomen is soft.? Nontender.? Bowel sounds normal. Musculoskeletal:? Able to move all extremities volitionally.? No localized strength deficits. Neuro:? Normal sensation of all extremities.? Skin:? No lesions or rashes. Psych:? Normal mood and affect.? Oriented x3. Objective Labs Result Diagrams: 08/29/22 08:49 08/29/22 08:49 Labs: Laboratory Results - last 24 hr 08/28/22 08/29/22 08/29/22 10:26 06:05 06:05 WBC Cancelled RBC Cancelled Hgb Cancelled Hct Cancelled MCV Cancelled MCH Cancelled MCHC Cancelled RDW Cancelled Plt Count Cancelled Neut % (Auto) Cancelled Lymph % (Auto) Cancelled [place] % (Auto) Cancelled Eos % (Auto) Cancelled Baso % (Auto) Cancelled Neut # (Auto) Cancelled Lymph # (Auto) Cancelled [place] # (Auto) Cancelled Eos # (Auto) Cancelled Baso # (Auto) Cancelled Total Counted Cancelled Seg Neutrophils % Cancelled Band Neutrophils % Cancelled Lymphocytes % (Manual) Cancelled Atypical Lymphs % Cancelled Monocytes % (Manual) Cancelled Eosinophils % (Manual) Cancelled Basophils % (Manual) Cancelled Metamyelocytes % Cancelled Myelocytes % Cancelled Promyelocytes % Cancelled Blast Cells % Cancelled Neutrophils # (Manual) Cancelled Nucleated RBCs Cancelled Differential Comment Cancelled Hypersegmented Neuts Cancelled Reactive Lymphocytes Cancelled Plasma Cells Cancelled Smudge Cells Cancelled Other Cell Type Cancelled Toxic Granulation Cancelled Toxic Vacuolation Cancelled Dohle Bodies Cancelled Zabrina Rods Cancelled WBC Morphology Comment Cancelled Platelet Estimate Cancelled Clumped Platelets Cancelled Plt Morphology Comment Cancelled RBC Morphology Cancelled Dimorphic RBCs Cancelled Polychromasia Cancelled Hypochromasia Cancelled Poikilocytosis Cancelled Basophilic Stippling Cancelled Anisocytosis Cancelled Microcytosis Cancelled Macrocytosis Cancelled Spherocytes Cancelled Pappenheimer Bodies Cancelled Sickle Cells Cancelled Target Cells Cancelled Tear Drop Cells Cancelled Ovalocytes Cancelled Stomatocytes Cancelled Helmet Cells Cancelled Ahuja-[place] Bodies Cancelled Kittrell Rings Cancelled Casa Cells Cancelled Acanthocytes (Spur) Cancelled Rouleaux Cancelled Schistocytes Cancelled Sodium Cancelled Potassium Cancelled Chloride Cancelled Carbon Dioxide Cancelled BUN Cancelled Creatinine Cancelled Estimated GFR Cancelled BUN/Creatinine Ratio Cancelled Glucose Cancelled Calcium Cancelled Magnesium Cancelled Total Bilirubin Cancelled AST Cancelled ALT Cancelled Alkaline Phosphatase Cancelled Total Protein Cancelled Albumin Cancelled Globulin Cancelled Albumin/Globulin Ratio Cancelled SARS-CoV-2 (PCR) Negative 08/29/22 08:49 WBC 9.4 RBC 4.35 L Hgb 13.7 Hct 39.2 L MCV 89.9 MCH 31.5 MCHC 35.0 RDW 14.1 Plt Count 221 Neut % (Auto) Cancelled Lymph % (Auto) Cancelled [place] % (Auto) Cancelled Eos % (Auto) Cancelled Baso % (Auto) Cancelled Neut # (Auto) Cancelled Lymph # (Auto) Cancelled [place] # (Auto) Cancelled Eos # (Auto) Cancelled Baso # (Auto) Cancelled Total Counted Seg Neutrophils % Band Neutrophils % Lymphocytes % (Manual) Atypical Lymphs % Monocytes % (Manual) Eosinophils % (Manual) Basophils % (Manual) Metamyelocytes % Myelocytes % Promyelocytes % Blast Cells % Neutrophils # (Manual) Nucleated RBCs Differential Comment Hypersegmented Neuts Reactive Lymphocytes Plasma Cells Smudge Cells Other Cell Type Toxic Granulation Toxic Vacuolation Dohle Bodies Zabrina Rods WBC Morphology Comment Platelet Estimate Clumped Platelets Plt Morphology Comment RBC Morphology Dimorphic RBCs Polychromasia Hypochromasia Poikilocytosis Basophilic Stippling Anisocytosis Microcytosis Macrocytosis Spherocytes Pappenheimer Bodies Sickle Cells Target Cells Tear Drop Cells Ovalocytes Stomatocytes Helmet Cells Ahuja-[place] Bodies [place] Rings [place] Cells Acanthocytes (Spur) Rouleaux Schistocytes Sodium Potassium Chloride Carbon Dioxide BUN Creatinine Estimated GFR BUN/Creatinine Ratio Glucose Calcium Magnesium Total Bilirubin AST ALT Alkaline Phosphatase Total Protein Albumin Globulin Albumin/Globulin Ratio SARS-CoV-2 (PCR) [facility] Medical History 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 BPH w urinary obs/LUTS 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 Enlarged prostate Headache, migraine History of colon polyps Right hip pain Urinary retention Surgical History History of cataract extraction (~2004) History of nasal polypectomy (~1959) History of surgery (~2002) History of tonsillectomy and adenoidectomy Hx of cholecystectomy (1998) Hx of cystoscopy Hx of esophagogastroduodenoscopy (03/21/22) Hx of hemorrhoidectomy (08/2017) Hx of hernia repair (08/2017) Hx of left inguinal hernia repair (08/17/20) Hx of tooth extraction Hx of transurethral resection of prostate (~2015) Hx of wisdom tooth extraction (~1979) Family History Father Hypertension Prostate cancer Mother Diabetes mellitus Renal failure Sister Liver cancer Social History marital status: household members: spouse Smoking Status: Never smoker alcohol intake: current substance use type: does not use Discharge Plan Discharge Plan Patient Disposition: Home Provider Discharge Comment: You were admitted to the hospital with a urinary tract infection due to obstruction. This bacteria also entered your bloodstream. You improved with antibiotics, continue on antibiotics for another week. Rest at home. Follow up with urology as an outpatient for the allan catheter to see if this can be removed. Discharge orders & Medications Prescriptions: New levofloxacin 750 mg tablet 750 mg PO DAILY 7 Days Qty: 7 0RF Rx Instructions: start on 08/30 Continued sumatriptan succinate [Imitrex] 100 MG tablet 100 mg PO PRN PRN (Reason: Headache) Qty: 0 tamsulosin [Flomax] 0.4 MG capsule,extended release 24hr 0.4 mg PO BID Qty: 0 omeprazole 20 mg capsule,delayed release(DR/EC) 20 mg PO DAILY Qty: 90 3RF sulfacetamide sodium-sulfur 10-5 % (w/w) cleanser 1 applic topical BID Label Comments: WASH face TWICE DAILY niacin 500 mg tablet 500 mg PO BID flaxseed oil 1,000 mg capsule 1,000 mg PO DAILY Rx Instructions: administer with a meal cetirizine 10 mg Tablet 10 mg PO DAILY PRN (Reason: Allergy Symptoms) oxybutynin chloride 5 mg tablet 5 mg PO BID-TID PRN (Reason: bladder spasms) Qty: 30 0RF Follow up/Referrals: Edgar Arambula MD [Primary Care Provider] - 09/08/22 9:30 am (Follow-up appointment with Dr. Arambula: September 08 at 9:30 am. If unable to make this appointment for any reason, please call [phone] at least 24 hours in advance. ) Diet/Activity/Treatments Diet: Diet as Tolerated Activity: As tolerated Catheter: 2-way Allan Visit Report/Discharge Packet Instructions: Urinary Tract Infection, Sepsis Discharge Data Primary Care Provider: Edgar Arambula V Quality VTE Deep Vein Thrombosis/Pulmonary Embolism Present on Admission: No
[2022-08-29 09:36] LABS: Neutrophils Absolute Manual 7332 /uL (3000-5900); RBC Morphology Normal Morphology; Total Cells Counted 100
[2022-08-29 09:42] LABS: Alanine Aminotransferase 81 IU/L (<50); Albumin 3.3 g/dL (3.5-5.0); Albumin Globulin Ratio 1.1 (1.0-2.8); Alkaline Phosphatase 132 U/L (38-126); Aspartate Aminotransferase 97 IU/L (17-59); BUN Creatinine Ratio 11.4 (6-22); Bilirubin Total 0.8 mg/dL (0.2-1.3); Blood Urea Nitrogen 9 mg/dL (9-20); Calcium 8.8 mg/dL (8.4-10.2); Carbon Dioxide 25 mmol/L (22-32); Chloride 100 mmol/L (98-107); Estimated Glomerular Filt Rate > 60 mL/min (>60); Globulin 3.1 g/dL (1.7-4.1); Glucose 160 mg/dL (80-110); HEMOLYSIS < 15 (0-50); Magnesium 1.8 mg/dL (1.6-2.3); Potassium 3.8 mmol/L (3.4-5.1); Sodium 133 mmol/L (137-145); Total Protein 6.4 g/dL (6.3-8.2)
[2022-08-29 11:52] VITALS: BP 128/71; PULSE 59; RESP 17; TEMP 36.6; O2SAT 98
--- NOTE | 2022-08-29 13:17 | CM.DPC ---
DCP Discharge Home Per MD, pt now medically stable to d/c home today after discharge was cancelled yesterday due to n/v. Pt has been cleared for home from PT and discharged from further PT needs. Per RN, pt has been independent in room and no concerns noted. Plan: Patient to d/c home today via supportive spouse and outpt follow up. No further SW needs at this time. GAUDENCIO Adame
[2022-08-29] MEDS: levoFLOXacin 250 MG TABLET 750 MG PO (13:24)
== END 2022-08-29 13:38 | disposition home or self-care (01) | DRG 862 ==
LOC: ED 21:56 → AC 23:01
PROVIDERS: Internal Medicine; Neuromusculoskeletal Medicine, Sports Medicine; Admitting Provider Family Medicine; Emergency Provider Emergency Medicine; Family Provider Internal Medicine; PCP Internal Medicine; Referring Provider Emergency Medicine; Visit Provider Family Medicine
DX: T81.44XA Sepsis following a procedure, initial encounter (principal); A41.9 Sepsis, unspecified organism; N39.0 Urinary tract infection, site not specified; N13.8 Other obstructive and reflux uropathy; G43.909 Migraine, unspecified, not intractable, without status migrainosus; B96.1 Klebsiella pneumoniae [K. pneumoniae] as the cause of diseases classified elsewhere; K21.9 Gastro-esophageal reflux disease without esophagitis; N40.1 Benign prostatic hyperplasia with lower urinary tract symptoms; I10 Essential (primary) hypertension; E80.6 Other disorders of bilirubin metabolism; D69.6 Thrombocytopenia, unspecified; Z20.822 Contact with and (suspected) exposure to COVID-19
CPT/HCPCS: 36415; 36592; 71045; 76770; 80053; 80076; 81001; 83605; 83690; 83735; 84145; 85025; 86140; 87040; 87077; 87086; 87150; 87186; 87635; 93005; 93010; 96365; 96366; 96375; 97116; 97161; 99284; C9803; J0696; J1650; J1885; J1940; J1956; J2543

== ENCOUNTER → 2023-01-26 09:34 | Outpatient (CLI) | payer OTHER, SELFPAY ==
[2022-08-23 23:08] VITALS: BMI 21.4
== END ==
PROVIDERS: Family Provider Internal Medicine; PCP Internal Medicine; Referring Provider Internal Medicine; Visit Provider Internal Medicine
DX: Z01.84 Encounter for antibody response examination (principal); E78.2 Mixed hyperlipidemia; N40.1 Benign prostatic hyperplasia with lower urinary tract symptoms
CPT/HCPCS: 36415; 80053; 80061; 84153; 85027

== ENCOUNTER → 2023-02-01 11:04 | Outpatient (CLI) | payer OTHER, SELFPAY ==
[2022-08-23 23:08] VITALS: BMI 21.4
[2023-02-03 12:18] LABS: PSA Free % 11.3 % (.); PSA, Total 4.8 ng/mL (0.0-4.0)
== END ==
PROVIDERS: Family Provider Internal Medicine; PCP Internal Medicine; Referring Provider Urology; Visit Provider Urology
DX: N13.8 Other obstructive and reflux uropathy (principal); N40.1 Benign prostatic hyperplasia with lower urinary tract symptoms; R97.20 Elevated prostate specific antigen [PSA]
CPT/HCPCS: 36415; 84153; 84154

== ENCOUNTER → 2023-02-20 16:14 | Outpatient (CLI) | payer OTHER, SELFPAY ==
[2022-08-23 23:08] VITALS: BMI 21.4
--- NOTE | 2023-02-20 16:15 | DI.MRI.S_ITS ---
PROCEDURE: MR PELIS WO/W CON INDICATIONS: Elevated prostate specific antigen [PSA] TECHNIQUE: Coronal HASTE, axial T1 FSE with fat saturation, 3-plane nonbreath-hold T2 FSE. After the administration of contrast, dynamic axial, delayed axial and coronal VIBE or 2-D FLASH with fat saturation through the pelvis. Optional diffusion weighted imaging and ADC may be performed. COMPARISON: None. FINDINGS: Image quality: Diffusion weighted and dynamic contrast enhanced images are diagnostic. Prostate: Gland size is 4.5 x 2.8 x 3.4 cm; ellipsoid gland volume is 22 mL. Prior TURP. No PI-RADS 3 through 5 lesions. Genitourinary system: Bladder wall thickness is normal. Distal ureters are non distended. Bowel and peritoneum: No pathologic free pelvic fluid. Inferior colon and small bowel loops are normal in caliber. Nodes and vessels: No pelvic or inguinal adenopathy by size criteria. Iliac vessels are normal in caliber. Soft tissues: No inguinal hernias. Small bilateral testicular hydroceles. Bones: Marrow demonstrates normal overall signal, without lesions to suggest metastases. IMPRESSION: Prior TURP. No PI-RADS 3 through 5 lesions. Small bilateral testicular hydroceles. Dictated by: Vicente Marcum M.D. on 02/21/2023 at 8:05 Approved by: Vicente Marcum M.D. on 02/21/2023 at 8:13
== END ==
PROVIDERS: Family Provider Internal Medicine; PCP Internal Medicine; Referring Provider Urology; Visit Provider Urology
DX: N40.1 Benign prostatic hyperplasia with lower urinary tract symptoms (principal); N13.8 Other obstructive and reflux uropathy; R97.20 Elevated prostate specific antigen [PSA]; N43.3 Hydrocele, unspecified
CPT/HCPCS: 72197; A9579

== ENCOUNTER → 2023-04-10 10:36 | Outpatient (CLI) | payer OTHER, SELFPAY ==
[2022-08-23 23:08] VITALS: BMI 21.4
[2023-04-12 09:14] LABS: PSA Free % 12.9 % (.); PSA, Total 3.8 ng/mL (0.0-4.0)
== END ==
PROVIDERS: Family Provider Internal Medicine; PCP Internal Medicine; Referring Provider Urology; Visit Provider Urology
DX: R97.20 Elevated prostate specific antigen [PSA] (principal)
CPT/HCPCS: 36415; 84153; 84154

== ENCOUNTER → 2023-04-21 10:36 | Outpatient (CLI) | payer OTHER, SELFPAY ==
[2022-08-23 23:08] VITALS: BMI 21.4
== END ==
PROVIDERS: Family Provider Internal Medicine; PCP Internal Medicine; Visit Provider Urology
DX: N40.1 Benign prostatic hyperplasia with lower urinary tract symptoms (principal); N13.8 Other obstructive and reflux uropathy; N41.1 Chronic prostatitis; R97.20 Elevated prostate specific antigen [PSA]; N32.0 Bladder-neck obstruction; R33.9 Retention of urine, unspecified; Z90.79 Acquired absence of other genital organ(s)
CPT/HCPCS: 51798; 81002; 87077; 87086; 87185; 87186

== ENCOUNTER → 2023-04-25 15:08 | Outpatient (CLI) | payer OTHER, SELFPAY ==
[2022-08-23 23:08] VITALS: BMI 21.4
[2023-04-25 16:29] LABS: Bacteria Urine Moderate (10-30); RBC Urine 0-1/HPF (0-5/HPF); WBC Urine 5-10/HPF (0-5/HPF)
[2023-04-25 16:30] LABS: Culture Indicated Urine Specimen Cultured; Squamous Epithelial Cell Urine None Seen (0-5/HPF)
== END ==
PROVIDERS: Family Provider Internal Medicine; PCP Internal Medicine; Referring Provider Urology; Visit Provider Urology
DX: N41.1 Chronic prostatitis (principal); R33.9 Retention of urine, unspecified; R97.20 Elevated prostate specific antigen [PSA]
CPT/HCPCS: 81015; 87077; 87086; 87186

== ENCOUNTER → 2023-05-11 13:34 | Outpatient (CLI) | payer OTHER, SELFPAY ==
[2022-08-23 23:08] VITALS: BMI 21.4
[2023-05-11 15:21] LABS: Bacteria Urine None Seen; Culture Indicated Urine Cult Not Indicated; RBC Urine None Seen (0-5/HPF); Squamous Epithelial Cell Urine None Seen (0-5/HPF); WBC Urine None Seen (0-5/HPF)
== END ==
PROVIDERS: Family Provider Internal Medicine; PCP Internal Medicine; Referring Provider Urology; Visit Provider Urology
DX: N32.0 Bladder-neck obstruction (principal); N41.1 Chronic prostatitis; R33.9 Retention of urine, unspecified; R97.20 Elevated prostate specific antigen [PSA]
CPT/HCPCS: 81015

== ENCOUNTER → 2023-07-18 09:05 | Outpatient (CLI) | payer OTHER, SELFPAY ==
[2022-08-23 23:08] VITALS: BMI 21.4
[2023-07-20 08:42] LABS: PSA Free % 9.8 % (.); PSA, Total 4.1 ng/mL (0.0-4.0)
== END ==
PROVIDERS: Family Provider Internal Medicine; PCP Internal Medicine; Referring Provider Urology; Visit Provider Urology
DX: N13.8 Other obstructive and reflux uropathy (principal); N40.1 Benign prostatic hyperplasia with lower urinary tract symptoms; R97.20 Elevated prostate specific antigen [PSA]
CPT/HCPCS: 36415; 84153; 84154

== ENCOUNTER → 2023-09-11 10:37 | Outpatient (CLI) | payer OTHER, SELFPAY ==
[2022-08-23 23:08] VITALS: BMI 21.4
[2023-09-11 12:23] LABS: Prostate Specific Antigen 4.09 ng/mL (0.10-4.00)
== END ==
PROVIDERS: Family Provider Internal Medicine; PCP Internal Medicine; Referring Provider Urology; Visit Provider Urology
DX: R97.20 Elevated prostate specific antigen [PSA] (principal)
CPT/HCPCS: 36415; 84153

== ENCOUNTER → 2023-10-16 12:42 | Outpatient (CLI) | payer OTHER, SELFPAY ==
[2022-08-23 23:08] VITALS: BMI 21.4
[2023-10-18 09:32] LABS: PSA Free % 18.6 % (.); PSA, Total 2.1 ng/mL (0.0-4.0)
== END ==
PROVIDERS: Family Provider Internal Medicine; PCP Internal Medicine; Referring Provider Urology; Visit Provider Urology
DX: R97.20 Elevated prostate specific antigen [PSA] (principal)
CPT/HCPCS: 36415; 84153; 84154

== ENCOUNTER → 2023-12-26 08:39 | Outpatient (CLI) | payer OTHER, SELFPAY ==
[2022-08-23 23:08] VITALS: BMI 21.4
[2023-12-26 09:26] LABS: Hemoglobin 14.8 g/dL (13.5-17.5); Mean Corpuscular HGB Conc 33.7 % (30-36); Mean Corpuscular Hemoglobin 31.2 PG (26-34); Mean Corpuscular Volume 92.7 fL (80-100); Platelet Count 208 X10^3/uL (150-400); Red Blood Cell Count 4.75 X10^6/uL (4.5-5.9); Red Cell Distribution Width 14.2 % (11.6-14.8); White Blood Cell Count 3.5 X10^3/uL (4.5-11.0)
[2023-12-26 09:52] LABS: HEMOLYSIS < 15 (0-50)
[2023-12-26 09:55] LABS: HEMOLYSIS < 15 (0-50); Iron 75 ug/dL (49-181)
[2023-12-26 09:57] LABS: Alanine Aminotransferase 16 IU/L (<50); Albumin 4.2 g/dL (3.5-5.0); Albumin Globulin Ratio 1.6 (1.0-2.8); Alkaline Phosphatase 43 U/L (38-126); Aspartate Aminotransferase 25 IU/L (17-59); BUN Creatinine Ratio 26.8 (6-22); Bilirubin Total 0.8 mg/dL (0.2-1.3); Blood Urea Nitrogen 22 mg/dL (9-20); Calcium 9.7 mg/dL (8.4-10.2); Carbon Dioxide 28 mmol/L (22-32); Chloride 102 mmol/L (98-107); Cholesterol 204 mg/dL (140-199); Estimated Glomerular Filt Rate > 60 mL/min (>60); Globulin 2.6 g/dL (1.7-4.1); Glucose 78 mg/dL (80-110); HDL Cholesterol 94 mg/dL (40-60); LDL Cholesterol Calculated 96 mg/dL (<100); Potassium 4.4 mmol/L (3.4-5.1); Sodium 138 mmol/L (137-145); Total Protein 6.8 g/dL (6.3-8.2); Triglycerides 69 mg/dL (35-150)
[2023-12-26 10:07] LABS: Percent Iron Saturation 26 % (20-50); Total Iron Binding Capacity 292 ug/dL (261-462); Transferrin 247 mg/dL (206-381)
[2023-12-26 10:30] LABS: TSH w/ Reflex to FT4 2.67 uIU/mL (0.47-4.68)
[2023-12-26 10:36] LABS: Ferritin 40 ng/mL (18-464)
[2023-12-27 03:13] LABS: Apolipoprotein B 82 mg/dL (<90)
== END ==
PROVIDERS: Family Provider Internal Medicine; PCP Internal Medicine; Referring Provider Internal Medicine; Visit Provider Internal Medicine
DX: N40.1 Benign prostatic hyperplasia with lower urinary tract symptoms (principal); N13.8 Other obstructive and reflux uropathy; D64.9 Anemia, unspecified; E78.2 Mixed hyperlipidemia; Z86.19 Personal history of other infectious and parasitic diseases
CPT/HCPCS: 36415; 80053; 80061; 82172; 82728; 83540; 83550; 84443; 85027

== ENCOUNTER → 2024-04-27 09:04 | Outpatient (CLI) | payer OTHER, SELFPAY ==
[2022-08-23 23:08] VITALS: BMI 21.4
[2024-04-27 10:27] LABS: Prostate Specific Antigen 2.49 ng/mL (0.10-4.00)
== END ==
PROVIDERS: Family Provider Internal Medicine; PCP Internal Medicine; Referring Provider Urology; Visit Provider Urology
DX: R97.20 Elevated prostate specific antigen [PSA] (principal)
CPT/HCPCS: 36415; 84153

== ENCOUNTER → 2024-05-03 14:51 | Outpatient (CLI) | payer OTHER, SELFPAY ==
[2022-08-23 23:08] VITALS: BMI 21.4
[2024-05-08 13:11] LABS: PSA Free % 24.2 % (.); PSA, Total 2.6 ng/mL (0.0-4.0)
== END ==
PROVIDERS: Family Provider Internal Medicine; PCP Internal Medicine; Referring Provider Urology; Visit Provider Urology
DX: R97.20 Elevated prostate specific antigen [PSA] (principal)
CPT/HCPCS: 36415; 84153; 84154

== ENCOUNTER → 2024-08-16 19:48 | Outpatient (CLI) | payer OTHER, SELFPAY ==
[2022-08-23 23:08] VITALS: BMI 21.4
== END ==
PROVIDERS: Family Provider Internal Medicine; PCP Internal Medicine; Referring Provider Internal Medicine; Visit Provider Internal Medicine
DX: Z23 Encounter for immunization (principal)
CPT/HCPCS: 90471; 90662

== ENCOUNTER → 2025-02-10 08:43 | Outpatient (CLI) | payer OTHER, SELFPAY ==
[2022-08-23 23:08] VITALS: BMI 21.4
[2025-02-10 09:01] LABS: Hematocrit 44.9 % (41-53); Hemoglobin 15.1 g/dL (13.5-17.5); Mean Corpuscular HGB Conc 33.6 % (30-36); Mean Corpuscular Hemoglobin 31.2 PG (26-34); Mean Corpuscular Volume 92.9 fL (80-100); Platelet Count 206 X10^3/uL (150-400); Red Blood Cell Count 4.83 X10^6/uL (4.5-5.9); Red Cell Distribution Width 13.7 % (11.6-14.8); White Blood Cell Count 4.6 X10^3/uL (4.5-11.0)
[2025-02-10 09:23] LABS: Aspartate Aminotransferase 28 IU/L (17-59); BUN Creatinine Ratio 18.1 (6-22); Blood Urea Nitrogen 19 mg/dL (9-20); Calcium 9.5 mg/dL (8.4-10.2); Carbon Dioxide 27 mmol/L (22-32); Chloride 102 mmol/L (98-107); Cholesterol 186 mg/dL (140-199); Estimated Glomerular Filt Rate > 60 mL/min (>60); Glucose 96 mg/dL (80-110); HDL Cholesterol 103 mg/dL (40-60); HEMOLYSIS < 15 (0-50); LDL Cholesterol Calculated 64 mg/dL (<100); Potassium 4.8 mmol/L (3.4-5.1); Sodium 135 mmol/L (137-145); Triglycerides 93 mg/dL (35-150)
== END ==
PROVIDERS: Family Provider Internal Medicine; PCP Internal Medicine; Referring Provider Urology; Visit Provider Urology
DX: N40.1 Benign prostatic hyperplasia with lower urinary tract symptoms (principal); N13.8 Other obstructive and reflux uropathy; E78.2 Mixed hyperlipidemia; D64.9 Anemia, unspecified
CPT/HCPCS: 36415; 80048; 80061; 84450; 85027

== ENCOUNTER → 2025-03-19 10:35 | Outpatient (CLI) | payer OTHER, SELFPAY ==
[2022-08-23 23:08] VITALS: BMI 21.4
[2025-03-21 08:11] LABS: PSA Free % 21.7 % (.); PSA, Total 2.4 ng/mL (0.0-4.0)
== END ==
PROVIDERS: Family Provider Internal Medicine; PCP Internal Medicine; Referring Provider Urology; Visit Provider Urology
DX: R97.20 Elevated prostate specific antigen [PSA] (principal)
CPT/HCPCS: 36415; 84153; 84154

== ENCOUNTER 2025-04-29 17:00 | Outpatient (RCR) | payer OTHER, SELFPAY ==
[2022-08-23 23:08] VITALS: BMI 21.4
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
== END 2025-05-02 11:04 | disposition home or self-care (01) ==
LOC: PHYS 17:00
PROVIDERS: Family Provider Internal Medicine; PCP Internal Medicine; Referring Provider Internal Medicine; Visit Provider Internal Medicine
DX: M76.32 Iliotibial band syndrome, left leg (principal)
CPT/HCPCS: 97110; 97112; 97140; 97161; 97535